=== PATIENT | female | born 1940 | race Caucasian/White ===

== ENCOUNTER 2020-03-15 12:55 | Outpatient (CLI) | payer MEDICARE, SELFPAY ==
[2020-03-15 13:51] LABS: Basophils Absolute Auto 0.1 K/mm3 (0.0-0.1); Basophils Percent Auto 0.8 % (0.2-1.2); Eosinophils Absolute Auto 0.3 K/mm3 (0-0.3); Eosinophils Percent Auto 4.1 % (0-4.4); Hematocrit 43.5 % (37.0-47.0); Hemoglobin 14.5 g/dL (12.0-15.0); Immature Granulocyte Absolute 0.03 K/mm3 (0.00-0.031); Immature Granulocyte Percent A 0.4 % (0-0.5); Lymphocytes Absolute Auto 1.71 K/mm3 (0.9-3.2); Lymphocytes Percent Auto 23.1 % (18.3-44.2); Mean Corpuscular HGB Conc 33.3 g/dl (32-36); Mean Corpuscular Hemoglobin 30.6 pg (26-34); Mean Corpuscular Volume 91.8 fl (80-100); Mean Platelet Volume 10.9 fl (7.4-10.4); Monocytes Absolute Auto 0.9 K/mm3 (0.1-0.6); Monocytes Percent Auto 11.9 % (2.6-8.5); Neutrophils Absolute Auto 4.4 K/mm3 (1.3-6.7); Neutrophils Percent Auto 59.7 % (45.5-73.1); Platelet Count Result 222 k/mm3 (150-375); Red Blood Count 4.74 M/mm3 (4.2-5.4); Red Cell Distribution Width 13.6 % (11.5-14.5); White Blood Count 7.4 K/mm3 (4.5-10.0)
[2020-03-15 13:59] LABS: Alanine Aminotransferase 24 U/L (4-35); Albumin Level 4.4 g/dL (3.5-5.1); Alkaline Phosphatase 75 U/L (38-126); Aspartate Amino Transferase 28 U/L (14-36); Bilirubin,Total 0.5 mg/dL (0.2-1.3); Blood Urea Nitrogen 22 mg/dL (7-17); Calcium 10.5 mg/dL (8.4-10.2); Carbon Dioxide 25 mmol/L (22-30); Chloride 106 mmol/L (98-107); Cholesterol 216 mg/dL (0-200); Estimated Glomerular Filt Rate 48; Glucose 125 mg/dL (65-105); HDL Direct 44 mg/dL; Potassium 4.4 mmol/L (3.4-5.0); Sodium 138 mmol/L (137-145); Triglycerides 266 mg/dL (<150)
[2020-03-15 14:10] LABS: LDL Cholesterol Direct 105 mg/dL
[2020-03-15 14:21] LABS: Hemoglobin A1C 6.8 % (<5.7)
[2020-03-15 15:29] LABS: Vitamin D 25 Hydroxy 81.9 ng/mL
== END 2020-03-15 12:56 | disposition home or self-care (01) ==
LOC: ANHLAB 12:58
PROVIDERS: PCP Internal Medicine; Visit Provider Clinical Nurse Specialist
DX: E78.5 Hyperlipidemia, unspecified (principal); E11.9 Type 2 diabetes mellitus without complications; I10 Essential (primary) hypertension; E55.9 Vitamin D deficiency, unspecified
CPT/HCPCS: 36415; 80053; 80061; 82306; 83036; 85025

== ENCOUNTER 2020-03-20 12:48 | Outpatient (CLI) | payer MEDICARE, SELFPAY ==
[2020-03-23 05:21] LABS: Ionized Calcium 5.3 mg/dL (4.8-5.6)
== END 2020-03-20 12:49 | disposition home or self-care (01) ==
PROVIDERS: PCP Internal Medicine; Visit Provider Clinical Nurse Specialist
DX: E83.52 Hypercalcemia (principal)
CPT/HCPCS: 36415; 82330

== ENCOUNTER 2020-05-17 12:45 | Outpatient (CLI) | payer MEDICARE, SELFPAY ==
[2020-05-17 13:42] LABS: Chloride 102 mmol/L (98-107)
[2020-05-17 13:47] LABS: Anion Gap 7 mmol/L (8-16); Blood Urea Nitrogen 15 mg/dL (7-17); Calcium 9.7 mg/dL (8.4-10.2); Carbon Dioxide 29 mmol/L (22-30); Estimated Glomerular Filt Rate 48; Glucose 107 mg/dL (65-105); Potassium 4.1 mmol/L (3.4-5.0); Sodium 138 mmol/L (137-145)
[2020-05-17 13:52] LABS: Hemoglobin A1C 6.6 % (<5.7)
== END 2020-05-17 12:46 | disposition home or self-care (01) ==
LOC: ANHLAB 12:51
PROVIDERS: PCP Internal Medicine; Visit Provider Clinical Nurse Specialist
DX: E11.9 Type 2 diabetes mellitus without complications (principal); R53.83 Other fatigue
CPT/HCPCS: 36415; 80048; 83036; 84443

== ENCOUNTER 2020-08-02 12:42 | Outpatient (CLI) | payer MEDICARE, SELFPAY ==
[2020-08-02 13:16] LABS: Basophils Absolute Auto 0.1 K/mm3 (0.0-0.1); Basophils Percent Auto 0.6 % (0.2-1.2); Eosinophils Absolute Auto 0.4 K/mm3 (0-0.3); Eosinophils Percent Auto 4.7 % (0-4.4); Hematocrit 41.1 % (37.0-47.0); Hemoglobin 14.7 g/dL (12.0-15.0); Immature Granulocyte Absolute 0.03 K/mm3 (0.00-0.031); Immature Granulocyte Percent A 0.4 % (0-0.5); Lymphocytes Percent Auto 24.7 % (18.3-44.2); Mean Corpuscular HGB Conc 35.8 g/dl (32-36); Mean Corpuscular Hemoglobin 34.7 pg (26-34); Mean Corpuscular Volume 96.9 fl (80-100); Mean Platelet Volume 10.6 fl (7.4-10.4); Monocytes Absolute Auto 0.7 K/mm3 (0.1-0.6); Monocytes Percent Auto 8.8 % (2.6-8.5); Neutrophils Absolute Auto 4.7 K/mm3 (1.3-6.7); Neutrophils Percent Auto 60.8 % (45.5-73.1); Platelet Count Result 202 k/mm3 (150-375); Red Blood Count 4.24 M/mm3 (4.2-5.4); Red Cell Distribution Width 15.8 % (11.5-14.5); White Blood Count 7.7 K/mm3 (4.5-10.0)
[2020-08-02 13:39] LABS: Alanine Aminotransferase 28 U/L (4-35); Albumin Level 4.8 g/dL (3.5-5.1); Alkaline Phosphatase 83 U/L (38-126); Anion Gap 8 mmol/L (8-16); Aspartate Amino Transferase 33 U/L (14-36); Bilirubin,Total 0.5 mg/dL (0.2-1.3); Blood Urea Nitrogen 16 mg/dL (7-17); Carbon Dioxide 34 mmol/L (22-30); Chloride 100 mmol/L (98-107); Cholesterol 145 mg/dL (0-200); Estimated Glomerular Filt Rate 48; Glucose 126 mg/dL (65-105); LDL Cholesterol Direct 56 mg/dL; Potassium 4.2 mmol/L (3.4-5.0); Sodium 142 mmol/L (137-145); Triglycerides 185 mg/dL (<150)
[2020-08-02 13:44] LABS: Hemoglobin A1C 6.4 % (<5.7)
[2020-08-02 13:59] LABS: HDL Direct 53 mg/dL
[2020-08-02 14:17] LABS: Vitamin D 25 Hydroxy 84.9 ng/mL
== END 2020-08-02 12:43 | disposition home or self-care (01) ==
PROVIDERS: PCP Internal Medicine; Visit Provider Clinical Nurse Specialist
DX: E55.9 Vitamin D deficiency, unspecified (principal); I10 Essential (primary) hypertension; E11.9 Type 2 diabetes mellitus without complications; E78.2 Mixed hyperlipidemia
CPT/HCPCS: 36415; 80053; 80061; 82306; 83036; 85025

== ENCOUNTER 2020-11-01 13:56 | Outpatient (CLI) | payer MEDICARE, SELFPAY ==
[2020-11-01 15:24] LABS: Hemoglobin A1C 6.4 % (<5.7)
== END 2020-11-01 13:57 | disposition home or self-care (01) ==
PROVIDERS: PCP Internal Medicine; Visit Provider Clinical Nurse Specialist
DX: E11.59 Type 2 diabetes mellitus with other circulatory complications (principal)
CPT/HCPCS: 36415; 83036

== ENCOUNTER 2021-04-04 12:28 | Outpatient (CLI) | payer MEDICARE, SELFPAY ==
[2021-04-04 13:14] LABS: Anion Gap 8 mmol/L (8-16); Blood Urea Nitrogen 15 mg/dL (7-17); Calcium 9.9 mg/dL (8.4-10.2); Carbon Dioxide 27 mmol/L (22-30); Chloride 105 mmol/L (98-107); Estimated Glomerular Filt Rate 47; Glucose 96 mg/dL (65-105); Potassium 4.3 mmol/L (3.4-5.0); Sodium 140 mmol/L (137-145)
[2021-04-04 13:21] LABS: Hemoglobin A1C 6.7 % (<5.7)
[2021-04-04 14:48] LABS: Creatinine Urine 32.2 mg/dL
== END 2021-04-04 12:29 | disposition home or self-care (01) ==
LOC: ANHLAB 12:31
PROVIDERS: PCP Internal Medicine; Visit Provider Clinical Nurse Specialist
DX: E11.59 Type 2 diabetes mellitus with other circulatory complications (principal)
CPT/HCPCS: 36415; 80048; 82043; 83036

== ENCOUNTER 2021-07-02 13:07 | Outpatient (CLI) | payer MEDICARE, SELFPAY ==
[2021-07-02 14:14] LABS: Hemoglobin A1C 6.5 % (<5.7)
== END 2021-07-02 13:08 | disposition home or self-care (01) ==
LOC: ANHLAB 13:10
PROVIDERS: PCP Internal Medicine; Visit Provider Clinical Nurse Specialist
DX: E11.59 Type 2 diabetes mellitus with other circulatory complications (principal)
CPT/HCPCS: 36415; 82607; 83036

== ENCOUNTER 2021-09-10 12:30 | Outpatient (RCR) | payer MEDICARE, SELFPAY ==
--- NOTE | 2021-07-30 15:28 | PTOPEVAL ---
Thank you for referring Maribell Dobbs to [facility].? The patient is scheduled to be seen for therapy? 2 x/week for 6 weeks. Please review, sign, date and return this plan of care ODALYS. I agree with and certify that the following plan of care is medically necessary. 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 She is wearing a prosthesis with 3 sock ply. She furniture walks in the house or uses her wc and a ww in the community. Subjective Information She has had 2-3 falls at home Query Text:As Reported By Patient/ in the past 6 months. Per Family daughter she is having trouble with right LE with driving due to feeling weak. She performs the cooking, cleaning, her ADL's and grocery shopping. She uses an electrical cart with shopping. She is indep with donning/ doffing prosthesis from seated position. Previous Treatments Previous Treatments For This Problem 2016 Pain Assessment Self Report Pain Assessment Lower Back Reported Pain Level 3 Lower Extremity Range of Motion General Lower Extremity Range of Motion Gross Lower Extremity Range of Motion left hip passive ext: -10 dg, Comments knee ext: -10 dg Lower Extremity Muscle Strength Testing Hip Strength Bilateral Hip Flexion Strength 3+ Fair + Hip Extension Strength 3- Fair - Hip Abduction Strength 2+ Poor + Knee Strength Left Knee Flexion Strength 3+ Fair + Knee Extension Strength 3+ Fair + Right Knee Flexion Strength 3+ Fair + Knee Extension Strength 4 Good Ankle Strength Right Ankle Dorsiflexion Strength 4 Good Ankle Plantarflexion Strength 3+ Fair + Ankle Eversion Strength 3+ Fair + Ankle Inversion Strength 4 Good Upper Extremity Muscle Strength Testing General Upper Extremity Strength Gross Upper Extremity Strength Comments andrea shoulder motions 3/5 andrea elbow flex/ext: 4/5 Transfer Assessment Chair Transfer Assessment Chair Transfer Assistive Devices None Ambulation Assistive Devices Walker, Wheeled Chair Transfer Destination Ambulatory Ability to Transfer In/Out of Chair Independent Bed Mobility Assessment Bed Mobility Bed Mobility Assistive Devices None Orthotic/Prosthetic Devices Left Lower Extremity Prosthesis
--- NOTE | 2021-09-10 13:45 | PTOPEVAL ---
Physical therapy discharge summary Thank you for referring Maribell Dobbs to [facility].? Maribell has attended 9 therapy visits to address her muscle weakness and limitations with functional mobility. See summary below for detail on function and progress. She has reached maximal potential with skilled therapy services at this time. Will discharge therapy services at this time. Please review, sign, date and return this discharge summary ODALYS. I agree with and certify that the following plan of care is medically necessary. 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 She is wearing a prosthesis with 3 sock ply. She furniture walks in the house or uses her wc and a ww in the community. Subjective Information She has had 1 fall since Query Text:As Reported By Patient/ starting therapy. She was Family descending a ramp which was icey. She has a new prosthesis since 09/03/21. She is wearing 5 ply socks. She is indep with donning/ doffing prosthesis from seated position. She has only performed her HEP 2-3x since starting therapy. Pain Assessment Lower Back Reported Pain Level 7 Pain Score Pain Score 7: Self Report Lower Extremity Muscle Strength Testing Hip Strength Bilateral Hip Flexion Strength 4 Good Hip Extension Strength 3- Fair - Hip Abduction Strength 2 Poor Hip Adduction Strength 2+ Poor + Knee Strength Left Knee Flexion Strength 4- Good - Knee Extension Strength 4 Good Right Knee Flexion Strength 4- Good - Knee Extension Strength 4+ Good + Ankle Strength Right Ankle Dorsiflexion Strength 4+ Good + Ankle Plantarflexion Strength 3+ Fair + Ankle Eversion Strength 4- Good - Ankle Inversion Strength 4 Good Transfer Assessment Chair Transfer Assessment Chair Transfer Assistive Devices None Ambulation Assistive Devices Walker, Wheeled Orthotic/Prosthetic Devices Left Lower Extremity Prosthesis Chair Transfer Destination Ambulatory Ability to Transfer In/Out of Chair Independent Chair Transfer Comments able to transfer from chairs with UE support. Multiple attempts to achieve full upright position Bed Mobi
== END 2021-09-11 09:33 | disposition home or self-care (01) ==
LOC: ANHPT 12:30
PROVIDERS: PCP Internal Medicine; Visit Provider Nurse Practitioner
DX: R53.1 Weakness (principal)
CPT/HCPCS: 97110; 97116; 97162; 97530

== ENCOUNTER 2021-10-08 12:30 | Outpatient (CLI) | payer MEDICARE, SELFPAY ==
[2021-10-08 13:25] LABS: Anion Gap 10 mmol/L (8-16); Blood Urea Nitrogen 16 mg/dL (7-17); Calcium 9.7 mg/dL (8.4-10.2); Carbon Dioxide 30 mmol/L (22-30); Chloride 99 mmol/L (98-107); Estimated Glomerular Filt Rate 47; Glucose 125 mg/dL (65-110); Potassium 4.4 mmol/L (3.4-5.0); Sodium 139 mmol/L (137-145)
[2021-10-08 13:48] LABS: Creatinine Urine 38.5 mg/dL
[2021-10-08 13:54] LABS: MALB Creatinine Ratio 107.5 mg/g (0-30); Microalbumin Urine Random 41.4 mg/L (0-16.7)
[2021-10-08 15:23] LABS: Vitamin D 25 Hydroxy 66.7 ng/mL
[2021-10-08 17:35] LABS: Hemoglobin A1C 6.3 % (<5.7)
== END 2021-10-08 12:31 | disposition home or self-care (01) ==
PROVIDERS: PCP Internal Medicine; Visit Provider Nurse Practitioner
DX: E11.9 Type 2 diabetes mellitus without complications (principal); E55.9 Vitamin D deficiency, unspecified
CPT/HCPCS: 36415; 80048; 82043; 82306; 83036

== ENCOUNTER 2022-02-11 12:27 | Outpatient (CLI) | payer MEDICARE, MEDICAID, SELFPAY ==
[2022-02-11 13:05] LABS: Basophils Absolute Auto 0.1 K/mm3 (0.0-0.1); Basophils Percent Auto 0.5 % (0.2-1.2); Eosinophils Absolute Auto 0.3 K/mm3 (0-0.3); Eosinophils Percent Auto 3.1 % (0-4.4); Hematocrit 38.3 % (37.0-47.0); Hemoglobin 11.6 g/dL (12.0-15.0); Immature Granulocyte Absolute 0.05 K/mm3 (0.00-0.031); Immature Granulocyte Percent A 0.5 % (0-0.5); Lymphocytes Absolute Auto 1.71 K/mm3 (0.9-3.2); Lymphocytes Percent Auto 18.6 % (18.3-44.2); Mean Corpuscular HGB Conc 30.3 g/dl (32-36); Mean Corpuscular Hemoglobin 27.2 pg (26-34); Mean Corpuscular Volume 89.9 fl (80-100); Monocytes Percent Auto 10.3 % (2.6-8.5); Neutrophils Absolute Auto 6.2 K/mm3 (1.3-6.7); Platelet Count Result 335 k/mm3 (150-375); Red Blood Count 4.26 M/mm3 (4.2-5.4); Red Cell Distribution Width 14.3 % (11.5-14.5); White Blood Count 9.2 K/mm3 (4.5-10.0)
[2022-02-11 13:14] LABS: Hemoglobin A1C 6.5 % (<5.7)
== END 2022-02-11 12:28 | disposition home or self-care (01) ==
PROVIDERS: PCP Internal Medicine; Visit Provider Nurse Practitioner
DX: E11.59 Type 2 diabetes mellitus with other circulatory complications (principal)
CPT/HCPCS: 36415; 83036; 85025

== ENCOUNTER 2022-03-30 12:58 | Inpatient (IN) | payer MEDICARE, MEDICAID, SELFPAY ==
[2022-03-30] VITALS (46 sets, daily range): BP systolic 115–155; BP diastolic 39–114; PULSE 52–88; RESP 13–28; TEMP 36.2–36.7; O2SAT 95–99; BMI 27.8
--- NOTE | ~2022-03-30 | CT_ITS ---
EXAMINATION:CT diagnostic chest w con DATE: 04/02/2022 12:53 INDICATION: Lung mass. TECHNIQUE: Computed tomography (CT) of the chest was performed with 75 mL Omnipaque 300 intravenous c ontrast. Automated exposure control and iterative reconstruction technique were employed. The dose-le ngth product (DLP) was 256.59 mGy-cm. COMPARISON: CT abdomen and pelvis 04/01/2022 FINDINGS: There is an 8.9 x 8.8 cm mass with central necrosis involving perihilar left upper lobe and left lower lobe. There are groundglass and airspace opacities in the more peripheral left lower lobe . There is mild atelectasis in right lower lobe. There are small left and trace right pleural effusio ns. The heart size is normal. There are coronary artery calcifications. No pericardial effusion. Ther e is a small sliding hiatal hernia. There is left hilar lymphadenopathy with a media sales representative node me asuring 2.2 x 1.8 cm. There are changes of cholecystectomy. There is a 4.3 cm mass in right adrenal g land. There is a 3.4 cm mass in left adrenal gland. There is moderate thoracic spondylosis. There are multiple chronic vertebral body fractures. IMPRESSION: 1. 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 2. Left hilar lymphadenopathy and bilateral adrenal masses, consistent with metastatic disease. 3. Small left pleural effusion. Diagnostic thoracentesis is recommended. 4. Groundglass and airspace opacities in left lung lower lobe, consistent with postobstructive pneumo cody. Reviewed, dictated and finalized at location A. IMPRESSION: 1. 8.9 cm necrotic mass in left lung, consistent with primary bronchogenic carc inoma. 2. Left hilar lymphadenopathy and bilateral adrenal masses, consistent with met astatic disease. 3. Small left pleural effusion. Diagnostic thoracentesis is recommended. 4. Groundglass and airspace opacities in left lung lower lobe, consistent with postobstructive pneumonia.
--- NOTE | ~2022-03-30 | XR_ITS ---
EXAMINATION: XR chest 2V DATE: 03/30/2022 14:03 INDICATION: Left shoulder pain TECHNIQUE: frontal and lateral views of the chest were obtained. COMPARISON: Chest radiograph dated 05/06/2016 FINDINGS: Focal consolidation in the posterior segment of the left upper lobe. Mild opacities at the posterior left lung base. Blunting at the bilateral posterior sulci consistent with tiny bilateral pleural effu sions.. Right lung is otherwise clear. No pneumothorax The cardiomediastinal silhouette is within nor mal limits for AP technique. Thoracic kyphosis with moderate spondylosis and a couple likely compress ion fractures at the lower thoracic spine. IMPRESSION: 1. Large region of consolidation in the posterior segment of the left upper lobe concerning for pneum onia, malignancy or combination thereof. Recommend further evaluation with contrast-enhanced CT, eith er currently or in short interval following resolution of symptoms. 2. Tiny left pleural effusion with mild left basilar atelectasis, pneumonia or mild pulmonary edema. Reviewed, dictated and finalized at location A. IMPRESSION: 1. Large region of consolidation in the posterior segment of the left upper lob e concerning for pneumonia, malignancy or combination thereof. Recommend furthe r evaluation with contrast-enhanced CT, either currently or in short interval f ollowing resolution of symptoms. 2. Tiny left pleural effusion with mild left basilar atelectasis, pneumonia or mild pulmonary edema.
--- NOTE | ~2022-03-30 | US_ITS ---
EXAMINATION: US venous doppler LE RT DATE: 03/31/2022 11:00 INDICATION: Right lower limb edema. TECHNIQUE: Grayscale ultrasound images without and with compression and Doppler ultrasound images of the right lower extremity veins were obtained. COMPARISON: Ultrasound 03/30/2010 FINDINGS: The visualized portions of right common femoral vein, profunda (deep) femoral vein, femoral vein, pop liteal vein, peroneal veins, posterior tibial veins, and greater saphenous vein outflow are patent. IMPRESSION: 1. No deep venous thrombosis. Reviewed, dictated and finalized at location A.
--- NOTE | ~2022-03-30 | CT_ITS ---
EXAMINATION: CT abdomen pelvis wo con DATE: 04/01/2022 18:13 INDICATION: Acute anemia. TECHNIQUE: Computed tomography (CT) of the abdomen and pelvis was performed without intravenous contr ast. The dose-length product was 682.83 mGy-cm. Automated exposure control and iterative reconstructi on technique were employed. COMPARISON: None FINDINGS: LEFT lower lobe airspace disease, consistent with pneumonia. Small pericardial effusion. Sm all left pleural effusion. Trace right pleural effusion. Cardiomegaly. There are bilateral adrenal masses, largest in the right adrenal gland measuring 4.3 x 4.2 cm. Status post cholecystectomy. The spleen, pancreas, and left kidney are unremarkable. There is an ill-define d partially calcified mass in the right kidney. Cannot exclude renal cell carcinoma. Recommend correl ation with MRI with contrast colonic diverticulosis without evidence for diverticulitis. Nonobstructi ve bowel pattern. There is a [place] ventral hernia containing fat and nonobstructed bowel. There i s extensive atherosclerosis. No aneurysm. There is levoscoliosis. There are severe lumbar spondylosis . There are wedge compression fractures of T12 and L1, likely chronic.. IMPRESSION: 1. Ill-defined right renal mass which is partially calcified. Cannot exclude renal cell carcinoma. Re commend correlation with contrast-enhanced MRI. 2: Bilateral adrenal masses which may represent benign adenomas, although metastatic disease is not excluded. This would also be better evaluated with contrast-enhanced MR. 3: Left lower lobe airspace disease, compatible with pneumonia. 4: Small pericardial effusion. 5: Small pleural effusions, left greater than right. Reviewed, dictated and finalized at location A. IMPRESSION: 1. Ill-defined right renal mass which is partially calcified. Cannot exclude re nal cell carcinoma. Recommend correlation with contrast-enhanced MRI. 2: Bilateral adrenal masses which may represent benign adenomas, although meta static disease is not excluded. This would also be better evaluated with contra st-enhanced MR. 3: Left lower lobe airspace disease, compatible with pneumonia. 4: Small pericardial effusion. 5: Small pleural effusions, left greater than right.
--- NOTE | ~2022-03-30 | US_ITS ---
. EXAMINATION: US renal BI DATE: 03/31/2022 11:01 INDICATION: Acute on chronic renal failure. TECHNIQUE: Multiple ultrasound grayscale images of the kidneys were obtained. COMPARISON: None. FINDINGS: The right kidney measures 10.7 x 5.0 x 5.3 cm. The left kidney measures 10.1 x 4.3 x 5.2 cm. The kidn eys demonstrate normal parenchymal echogenicity. There is no hydronephrosis. The bladder is normal. IMPRESSION: 1. Normal kidneys. No hydronephrosis. Reviewed, dictated and finalized at location A.
--- NOTE | ~2022-03-30 | XR_ITS ---
EXAMINATION: [id number]_[id number]_CR DATE: 04/03/2022 14:43 INDICATION: Left pleural effusion status post thoracentesis. TECHNIQUE: Frontal and lateral views of the chest were obtained. COMPARISON: Chest 2 views 03/30/2022, chest CT 04/02/2022 FINDINGS: There are airspace opacities in left lung, worst in left upper lobe and superior segment le ft lower lobe. There are airspace opacities at left lung base. There are small pleural effusions. No pneumothorax. Cardiomegaly is noted. There are chronic compression fractures of T12 and L1. IMPRESSION: 1. Stable airspace opacities in left upper lobe and superior segment left lower lobe, consistent with pneumonia versus malignancy. 2. Worsened airspace opacities at left lung base, consistent with atelectasis versus pneumonia. 3. Small pleural effusions. 4. Cardiomegaly. Reviewed, dictated and finalized at location A. IMPRESSION: 1. Stable airspace opacities in left upper lobe and superior segment left lower lobe, consistent with pneumonia versus malignancy. 2. Worsened airspace opacities at left lung base, consistent with atelectasis v ersus pneumonia. 3. Small pleural effusions. 4. Cardiomegaly.
--- NOTE | ~2022-03-30 | US_ITS ---
EXAMINATION: US thoracentesis DATE: 04/03/2022 14:57 INDICATION: pleural effusion TECHNIQUE: The procedure and its risks, benefits, and alternatives were discussed with the patient. P otential risks discussed included bleeding, infection, and pneumothorax. The patient understood the r isks and agreed to proceed. The skin was prepped and draped in sterile fashion. 1% lidocaine was used for local anesthesia. Under ultrasound guidance, a 5 Fr catheter with trochar was advanced into the left pleural effusion. Fluid was aspirated. The catheter was removed, and a dressing was applied. The re were no immediate complications. FINDINGS: Ultrasound images demonstrate a left pleural effusion and the catheter within the fluid. IMPRESSION: 1. Successful ultrasound-guided thoracentesis yielding 10 mL of yellow fluid. Reviewed, dictated and finalized at location A.
--- NOTE | 2022-03-30 13:31 | ECG_ITS ---
Measurements Intervals [place] Rate: 65 P: 24 WA: 176 QRS: 17 QRSD: 86 T: 41 QT: 410 QTc: 427 Interpretive Statements SINUS RHYTHM BASELINE ARTIFACT- V5 BORDERLINE ECG Electronically Signed On 03-30-2022 21:22:21 CDT by Ritesh Jurado D.O.
[2022-03-30 13:42] LABS: Basophils Absolute Auto 0.1 K/mm3 (0.0-0.1); Basophils Percent Auto 0.3 % (0.2-1.2); Eosinophils Absolute Auto 0.4 K/mm3 (0-0.3); Eosinophils Percent Auto 2.7 % (0-4.4); Hemoglobin 9.5 g/dL (12.0-15.0); Immature Granulocyte Absolute 0.06 K/mm3 (0.00-0.031); Immature Granulocyte Percent A 0.4 % (0-0.5); Lymphocytes Absolute Auto 1.25 K/mm3 (0.9-3.2); Lymphocytes Percent Auto 8.6 % (18.3-44.2); Mean Corpuscular HGB Conc 29.7 g/dl (32-36); Mean Corpuscular Hemoglobin 24.9 pg (26-34); Monocytes Absolute Auto 1.3 K/mm3 (0.1-0.6); Monocytes Percent Auto 8.9 % (2.6-8.5); Neutrophils Absolute Auto 11.5 K/mm3 (1.3-6.7); Neutrophils Percent Auto 79.1 % (45.5-73.1); Platelet Count Result 421 k/mm3 (150-375); Red Blood Count 3.81 M/mm3 (4.2-5.4); Red Cell Distribution Width 14.9 % (11.5-14.5); White Blood Count 14.6 K/mm3 (4.5-10.0)
[2022-03-30 13:52] LABS: Alanine Aminotransferase 14 U/L (6-35); Albumin Level 3.6 g/dL (3.5-5.1); Alkaline Phosphatase 89 U/L (38-126); Anion Gap 7 mmol/L (8-16); Aspartate Amino Transferase 27 U/L (14-36); Bilirubin,Total < 0.1 mg/dL (0.2-1.3); Blood Urea Nitrogen 32 mg/dL (7-17); Calcium 8.8 mg/dL (8.4-10.2); Carbon Dioxide 29 mmol/L (22-30); Chloride 102 mmol/L (98-107); Estimated CRCL calculation 16 ml/min; Estimated Glomerular Filt Rate 21; Glucose 131 mg/dL (65-110); Lipase 309 U/L (23-300); Potassium 4.2 mmol/L (3.4-5.0); Sodium 138 mmol/L (137-145)
[2022-03-30 13:54] LABS: INR 1.2; Prothrombin Time 14.6 Seconds (11.1-14.7)
[2022-03-30 13:55] LABS: Partial Thromboplastin Time 34.4 SECONDS (22.3-36.8)
[2022-03-30 14:30] LABS: Troponin I 0.087 ng/mL (0.000-0.034)
[2022-03-30] MEDS: ASPIRIN 81 MG CHEWABLE TABLET 324 MG PO (15:07)
[2022-03-30] MEDS: METOPROLOL TARTRATE 50 MG TAB 25 MG PO (15:07)
[2022-03-30] MEDS: NITROGLYCERIN OINTMENT 1 INCH DOSE TRANSDERM (15:08)
[2022-03-30] MEDS: SODIUM CHLORIDE 0.9% IV 1,000 ML 999 ML IV CONT (15:08)
--- NOTE | 2022-03-30 15:10 | ED.GENADULT ---
HPI - General Adult General Chief complaint: Unspecified Stated complaint: bodyaches, hot flashes Time Seen by Provider: 03/30/22 14:30 History of Present Illness HPI narrative: Patient is 81 years old white female presents to the ED with left upper chest pain. Patient got up at 1 AM to go to the bathroom and noticed that she have some soreness around her left breast radiating to left shoulder blade. And also was feeling warm and diaphoretic. Patient was able to go back and forth to sleep, and her symptoms resolved completely at 5 AM currently patient is asymptomatic. She denies any fever, chills, nausea, vomiting, shortness of breath or having similar symptoms in the past. History of diabetes and hypothyroidism. Patient does not take any blood thinner at home. She denies any history of heart attack or stroke or hypertension. Patient also denies any smoking or drinking. History of left below-knee amputation Related Data Home Medications Medication Instructions Recorded Confirmed multivitamin 1 tablet PO DAILY 08/02/19 03/30/22 omega-3 fatty acids 1,000 mg 1,000 mg PO DAILY 08/02/19 03/30/22 capsule (Fish Oil Concentrate) vitamin E (dl, acetate) 180 mg 400 unit PO DAILY 08/02/19 03/30/22 (400 unit) capsule cholecalciferol (vitamin D3) 125 5,000 unit PO .every other day 07/04/21 03/30/22 mcg (5,000 unit) capsule biotin 1 mg capsule 1 mg PO DAILY 02/13/22 03/30/22 Allergies Allergy/AdvReac Type Severity Reaction Status Date / Time erythromycin base Allergy Unknown Hives Verified 03/30/22 13:07 Penicillins Allergy Unknown Hives Verified 03/30/22 13:07 Review of Systems Review of Systems: CONSTITUTIONAL: Denies fever, chills, or sweats. EYES: Denies visual changes, redness, or discharge. ENT: Denies rhinorrhea, congestion, sore throat, or otalgia. CARDIOVASCULAR: Denies chest pain, palpitations, or edema. RESPIRATORY: Denies cough or dyspnea. GASTROINTESTINAL: Denies abdominal pain, nausea, vomiting, or diarrhea. GENITOURINARY: Denies dysuria or hematuria. SKIN: Denies rash or itching. MUSCULOSKELETAL: Denies back pain, joint pain, or myalgia. NEUROLOGIC: Denies headache, numbness, or weakness. PSYCHIATRIC: Denies anxiety or depression. [facility] Past Medical History Medical History Below-knee amputation of left lower extremity CKD (chronic kidney disease) Essential hypertension GERD (gastroesophageal reflux disease) Hyperlipidemia Paroxysmal A-fib Type 2 diabetes mellitus with other circulatory complications Surgical History Surgical History History of appendectomy Hx of cholecystectomy Status post below-knee amputation of left lower extremity Family History Family History Father Family history of Parkinson's disease Patient's father is , Onset Age: 73 Mother Patient's mother is , Onset Age: 69 Uterine cancer Social History Social History Social History: Caffeine-tea,soda Smoking status: Never smoker Alcohol intake: never Exam Narrative: General appearance: Well-developed, well-nourished Skin: Normal color Head: Normocephalic, nontraumatic Eyes: Clear conjunctiva ENT: Oropharynx normal, ears normal, nose normal Neck: Supple, nontender Chest and respiratory: Airway patent, no respiratory distress, no accessory muscle use Heart: Regular rate/rhythm Abdomen: Soft, nontender, no organomegaly, quiet bowel sounds Vascular: Normal peripheral pulses, normal capillary refill. Musculoskeletal: Normal range of motion, nontender back Neurologic: Alert and oriented ?3, FILM OR TAPE LIBRARIAN is normal as tested, no gross motor deficit
--- NOTE | 2022-03-30 15:37 | PC.NURSE ---
NITRO paste removed per order of YADI ashley.
--- NOTE | 2022-03-30 16:15 | PM.IMHP ---
H&P: HPI History of Present Illness Date/Time: 03/30/22 16:15 Chief Complaint: Left sided chest pain. Narrative: This is a pleasant 81-year-old female with insulin dependent diabetes, hypertension, hyperlipidemia, paroxysmal atrial fibrillation, chronic kidney disease, and hypothyroidism who presented to the emergency department from home for evaluation of left sided chest pain. For about a week she has had aching discomfort and occasional muscle spasms throughout the lower back. She was seen at urgent care several days ago at which time she was diagnosed with a urinary tract infection for which she was prescribed Bactrim though she did not really have any urinary symptoms. Last evening she started having pain on the left side of her chest and the left side of her ribs that she has a difficult time describing though she states that is aggravating and at times stabbing in nature. She did not sleep well due to the pain in addition to hot sweats however when she woke up this morning she was may be a bit better. As the day has gone on the pain has returned and she came in for evaluation. Her EKG was relatively unremarkable though her initial troponin was a bit elevated at 0.084. Chest x-ray showed a large region of consolidation in the posterior segment of the left upper lobe concerning for pneumonia and she is being admitted in this setting. With further questioning she does endorse a dry cough and hot sweats as detailed above. She denies headache, sinus congestion, sore throat, chest pain, shortness of breath, nausea, vomiting, and diarrhea. She has not had exertional chest pain or palpitations. She has mild edema in her right leg but that is chronic and unchanged. She has not had any sick contacts and her SARS-CoV-2 by PCR was negative. Review of Systems Review of Systems: Twelve systems were reviewed. She has been taking ibuprofen and occasionally hydrocodone for the low back discomfort that she started to have last week. Those seemed to help somewhat with the left-sided pleuritic pain as well. Glucose has been fairly well controlled. No blurry vision, polydipsia, or polyuria. Except as documented, all other systems were reviewed and are negative. [facility] Past Medical History Medical History (Updated 03/30/22 @ 15:47 by Samira May PA-C) Chronic kidney disease, stage 3 Baseline creatinine is 1.10. Essential hypertension Gastroesophageal reflux disease Hyperlipidemia Insulin dependent diabetes mellitus Osteomyelitis Paroxysmal atrial fibrillation Vitamin D deficiency Surgical History Surgical History (Updated 03/30/22 @ 15:43 by Samira May PA-C) History of amputation of toe History of appendectomy History of bilateral cataract extraction History of cholecystectomy History of left below knee amputation History of tonsillectomy Family History Family History Father Family history of Parkinson's disease Patient's father is , Onset Age: 73 Mother Patient's mother is , Onset Age: 69 Uterine cancer Social History Social History (Updated 03/30/22 @ 23:30 by Samira May PA-C) Social History: Surrogate medical decision maker: Gypsy Finley, daughter. Code status: Full code. Smoking status: Former smoker Alcohol intake: never Substance use: never Living arrangements: with family Occupation/Education: retired Spiritual care concerns: No Meds Home Medications and Allergies Home Medications Medication Instructions Recorded Confirmed Type multivitamin 1 tablet PO DAILY 08/02/19 03/30/22 History omega-3 fatty acids 1,000 mg 1,000 mg PO DAILY 08/02/19 03/30/22 History capsule (Fish Oil Concentrate) vitamin E (dl, acetate) 180 mg 400 unit PO DAILY 08/02/19 03/30/22 History (400 unit) capsule blood-glucose meter ([employer] #1 ea 11/23/20 03/30/22 Rx Ultra2 Meter) cholecalciferol (v
[2022-03-30 16:17] LABS: Lactic Acid Reflex 1.5 mmol/L (0.7-2.0)
[2022-03-30 16:28] LABS: CRP 3.7 mg/dL (<1.0)
[2022-03-30 16:40] LABS: SARS-CoV-2 RNA PCR Negative
[2022-03-30 16:42] LABS: Troponin I 0.082 ng/mL (0.000-0.034)
--- NOTE | 2022-03-30 18:50 | ADMGEN ---
This patient, Maribell Dobbs, was admitted to IMU Room 201-01 at 1826. Patient/family oriented to hospital policies and general routines including ID bracelet, bed and alarms, visiting hours, pain management, procedures, bathroom and other care routines, personal items, smoking policy, room service/diet, and visiting hours. Information on how to activate the Rapid Response Team has been discussed. Patient/Family are encouraged to report perceived risks to care and to ask questions if they do not understand what they are told or what they should do.
[2022-03-30 19:40] LABS: Troponin I 0.084 ng/mL (0.000-0.034)
[2022-03-30] MEDS: SODIUM CHLORIDE 0.9% IV 1,000 ML 125 ML IV CONT (19:55)
[2022-03-30 20:16] LABS: Glucose Point of Care 167 mg/dl (65-105)
[2022-03-31] VITALS (13 sets, daily range): BP systolic 124–149; BP diastolic 44–71; PULSE 63–75; RESP 14–20; TEMP 36.1–36.6; O2SAT 94–99
[2022-03-31 00:45] LABS: Creatine Kinase 59 U/L (30-135)
[2022-03-31 00:47] LABS: Hemoglobin A1C 6.9 % (<5.7)
[2022-03-31 00:50] LABS: Appearance Urine Clear (Clear); Bilirubin Urine Negative (Negative); Blood Urine Negative (Negative); Color Urine Yellow (Yellow); Glucose Urine UA Negative (Negative); Ketones Urine Negative (Negative); Leukocyte Esterase Ur Negative LEU/UL (Negative); Nitrate Urine Negative (Negative); Protein Urine Negative (Negative); Urobilinogen Urine 0.2 mg/dL (<2.0); pH Urine 5.5 (5.0-9.0)
[2022-03-31 00:51] LABS: NT Pro B Type Natriuretic Pept 828 pg/mL (5-100)
[2022-03-31 01:06] LABS: Creatinine Urine 72.2 mg/dL
[2022-03-31 01:08] LABS: Iron 30 ug/dL (37-170)
[2022-03-31 01:09] LABS: Bacteria Urine Trace /hpf; Mucus Urine Rare /lpf; RBC Urine 0-2 /hpf (0-2); Squamous Epithelial Cell Urine Occasional /hpf (Few)
[2022-03-31] MEDS: BIOTIN 1 EACH XX (01:10)
[2022-03-31 01:17] LABS: Percent Iron Saturation 14 % (20-50)
[2022-03-31 01:18] LABS: Add Urine Microscopic? YES
[2022-03-31 01:22] LABS: Procalcitonin 0.2 ng/mL
[2022-03-31 01:43] LABS: Eosinophil Urine None Seen % (None Seen)
[2022-03-31 02:19] LABS: Folic Acid 18.6 ng/mL (2.76->20)
[2022-03-31 05:21] LABS: Basophils Absolute Auto 0.1 K/mm3 (0.0-0.1); Basophils Percent Auto 0.4 % (0.2-1.2); Eosinophils Absolute Auto 0.4 K/mm3 (0-0.3); Eosinophils Percent Auto 2.7 % (0-4.4); Hematocrit 28.4 % (37.0-47.0); Hemoglobin 8.7 g/dL (12.0-15.0); Immature Granulocyte Absolute 0.06 K/mm3 (0.00-0.031); Immature Granulocyte Percent A 0.4 % (0-0.5); Lymphocytes Percent Auto 7.4 % (18.3-44.2); Mean Corpuscular HGB Conc 30.6 g/dl (32-36); Mean Corpuscular Hemoglobin 26.8 pg (26-34); Mean Corpuscular Volume 87.4 fl (80-100); Mean Platelet Volume 9.8 fl (7.4-10.4); Monocytes Absolute Auto 1.4 K/mm3 (0.1-0.6); Monocytes Percent Auto 10.5 % (2.6-8.5); Neutrophils Absolute Auto 10.7 K/mm3 (1.3-6.7); Neutrophils Percent Auto 78.6 % (45.5-73.1); Platelet Count Result 355 k/mm3 (150-375); Red Blood Count 3.25 M/mm3 (4.2-5.4); Red Cell Distribution Width 15.4 % (11.5-14.5); White Blood Count 13.6 K/mm3 (4.5-10.0)
[2022-03-31 05:37] LABS: Anion Gap 5 mmol/L (8-16); Blood Urea Nitrogen 29 mg/dL (7-17); Carbon Dioxide 26 mmol/L (22-30); Chloride 104 mmol/L (98-107); Estimated CRCL calculation 20 ml/min; Estimated Glomerular Filt Rate 27; Glucose 133 mg/dL (65-110); Magnesium 1.6 mg/dL (1.6-2.3); Potassium 4.1 mmol/L (3.4-5.0); Sodium 135 mmol/L (137-145)
--- NOTE | 2022-03-31 06:00 | ECG_ITS ---
Measurements Intervals [place] Rate: 73 P: 46 UT: 208 QRS: 43 QRSD: 89 T: 31 QT: 403 QTc: 444 Interpretive Statements SINUS RHYTHM WITH FIRST DEGREE AV BLOCK LOW QRS VOLTAGE IN PRECORDIAL LEADS BORDERLINE ECG Electronically Signed On 03-31-2022 8:20:53 CDT by Ritesh Jurado D.O.
[2022-03-31 07:56] LABS: Glucose Point of Care 98 mg/dl (65-105)
[2022-03-31] MEDS: ATORVASTATIN 20 MG TABLET PO (08:10)
[2022-03-31] MEDS: OMEGA 3 POLYUNSAT FATTY ACIDS 1 GM CAP PO (08:10)
[2022-03-31] MEDS: ENOXAPARIN 30 MG/0.3 ML SYRINGE SUB-Q (08:10)
[2022-03-31] MEDS: MULTIVITAMINS THERAPEUTIC TAB (*BKC) 1 TABLET PO (08:10)
[2022-03-31] MEDS: PANTOPRAZOLE 40 MG TABLET PO (08:10)
[2022-03-31] MEDS: CHOLECALCIFEROL 1,000 UNITS TABLET 5000 UNITS PO (08:10)
[2022-03-31] MEDS: VITAMIN E 400 UNIT CAPSULE PO (08:10)
--- NOTE | 2022-03-31 09:11 | PM.CNCAR ---
Assessment and Plan Assessment and plan (1) Elevated troponin: Code(s): R77.8 - Other specified abnormalities of plasma proteins Status: Acute Assessment and Plan: Mildly elevated flat troponin consistent with type 2 infarction not consistent acute coronary syndrome and/or plaque rupture. This is seen in the setting of acute on chronic anemia, acute on chronic kidney injury, and pneumonia. Patient has atypical symptoms although multiple risk factors for underlying CAD. EKG is without acute ischemic changes. Continue statin therapy. He had review prior cardiovascular records. Outpatient ischemic evaluation may be considered once patient is more full recovery given risk factors but need not be pursued at this time in house unless new concerns or changes. 2D echocardiogram to assess LV systolic function, wall motion abnormalities, valve pathology pulmonary pressures. Recommendation to follow after review. If significant wall motion abnormalities and/or LV dysfunction is identified ischemic evaluation will be discussed in more detail. (2) Acute on chronic kidney failure: Code(s): N17.9 - Acute kidney failure, unspecified; N18.9 - Chronic kidney disease, unspecified Status: Acute Assessment and Plan: Per primary service. Avoid nephrotoxic agents. Monitor closely. (3) Community acquired pneumonia: Code(s): J18.9 - Pneumonia, unspecified organism Status: Acute Assessment and Plan: Per primary service. IV antibiotics as appropriate. Respiratory support. (4) Normocytic anemia: Code(s): D64.9 - Anemia, unspecified Status: Acute Assessment and Plan: Acute on chronic anemia without evidence of acute GI bleed per history. Significant decline over the past few months. Anemia workup pending. Defer to primary service. (5) Hypertension associated with type 2 diabetes mellitus: Code(s): E11.59 - Type 2 diabetes mellitus with other circulatory complications; I15.2 - Hypertension secondary to endocrine disorders Status: Acute Assessment and Plan: Stable at present. Continue to monitor closely. (6) Paroxysmal atrial fibrillation: Code(s): I48.0 - Paroxysmal atrial fibrillation Status: Acute Assessment and Plan: Twelve lead EKG from 2016 consistent with atrial fibrillation although no subsequent documentation. Patient is not currently on systemic anticoagulation. CHADS2 Vasc score 5. Need to review prior records in this regard, however, less contraindications systemic anticoagulation for about stroke risk reduction quite reasonable but given worsening anemia further workup pending. DVT prophylaxis at this time. At a minimum if able to tolerate aspirin 81 mg daily if she is not a candidate for systemic anticoagulation may be considered. 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 Patient describes pain as aching with occasional sharp muscle spasm extending to the left lower back. He was seen in urgent care for which she was diagnosed urinary tract infection placed on Bactrim. Pain was waxing and waning. Two taking pain medications at home she states which did help. He recurrence for pain and difficulty sleeping she presented to ER for further evaluation. Chest x-ray revealed left upper and lower lobe consolidation consistent with pneumonia for which she was started on I
[2022-03-31 10:37] LABS: IFOB Positive Control Positive; Immunochemical Fecal Occult Bl Negative (N)
[2022-03-31] MEDS: INSULIN ASPART (*BKC) 100 UNITS/ML SUB-Q ×2 (11:42→16:34)
[2022-03-31 11:54] LABS: Glucose Point of Care 295 mg/dl (65-105)
--- NOTE | 2022-03-31 12:08 | PM.IMPN ---
Progress Note: A&P Assessment and Plan (1) Pneumonia as manifestation of parasitic disease: Code(s): J16.8 - Pneumonia due to other specified infectious organisms; B89 - Unspecified parasitic disease Status: Acute Assessment and Plan: Chest x-ray shows a large region of consolidation in the posterior left upper lobe and she has been started on antibiotics for presumed pneumonia. Radiologist recommends contrast enhanced CT to further evaluate for the possibility of underlying malignancy though her renal function is worse than usual and she cannot receive contrast at this juncture. Continue antibi (2) Elevated troponin: Code(s): R77.8 - Other specified abnormalities of plasma proteins Status: Acute Assessment and Plan: no chest pain. likely noncardiac (3) Acute on chronic kidney failure: Code(s): N17.9 - Acute kidney failure, unspecified; N18.9 - Chronic kidney disease, unspecified Status: Acute Assessment and Plan: IV fluids, monitor electrolytes and creatinine. Improving (4) Normocytic anemia: Code(s): D64.9 - Anemia, unspecified Status: Acute Assessment and Plan: Hemoglobin and hematocrit have dropped over the past couple of months. Check iron studies, B12, and folates. (5) Insulin dependent diabetes mellitus: Status: Acute Assessment and Plan: Continue basal insulin. Initiate sliding scale insulin, Accu-Cheks, and hypoglycemic protocol. Check hemoglobin A1c. Subjective Date/time seen: 03/31/22 12:08 denies shortness of breath. Exam Narrative: General: Mildly ill-appearing female sitting up in bed. Weight: 69 kg. BMI: 27.8. HEENT: Wearing glasses and hearing aids. PERRL, EOMI. Conjunctivae anicteric. Tacky mucous membranes. Oropharynx is clear. Neck: Supple. No lymphadenopathy or jugular venous distention. Respiratory: Respirations are nonlabored. She is speaking in full sentences. Diminished lung sounds of the left upper lung with faint crackles and expiratory wheezing. Cardiovascular: Regular rate and rhythm with S1-S2. Gastrointestinal: Abdomen is soft, nontender, and nondistended with positive bowel sounds. Skin: Warm and dry. Generalized pallor. Some excoriations on the right leg. Extremities: No cyanosis or clubbing. 1+ edema of the right lower leg. Status post left vrxyj-hsg-gjza amputation. Radial and right pedal pulses intact. Neurological: Alert and oriented. Cranial nerves 2-12 are grossly intact. No gross focal deficits to casual conversation. Psychiatric: Pleasant and cooperative with normal mood and affect. Judgment and insight intact. Objective Data Vital Signs Vital Signs: Vital Signs - 24 hr 03/30/22 13:00 03/30/22 13:16 03/30/22 13:17 Temperature 98.1 F Pulse Rate 85 71 Respiratory Rate 16 21 H Blood Pressure 155/39 H 133/55 L Pulse Oximetry 95 97 97 Oxygen Delivery Room Air 03/30/22 13:30 03/30/22 13:31 03/30/22 13:45 Temperature Pulse Rate 71 74 68 Respiratory Rate 25 H 20 20 Blood Pressure 124/108 H Pulse Oximetry 96 98 Oxygen Delivery 03/30/22 13:46 03/30/22 14:03 03/30/22 14:15 Temperature Pulse Rate 69 69 68 Respiratory Rate 23 H 18 23 H Blood Pressure 138/114 H Pulse Oximetry 95 Oxygen Delivery 03/30/22 14:30 03/30/22 15:07 03/30/22 14:45 Temperature Pulse Rate 69 73 72 Respiratory Rate 22 H 24 H Blood Pressure Pulse Oximetry Oxygen Delivery 03/30/22 15:00 03/30/22 15:08 03/30/22 15:25 Temperature Pulse Rate 71 73 79 Respiratory Rate 19 23 H Blood Pressure 146/108 H Pulse Oximetry Oxygen Delivery 03/30/22 15:30 03/30/22 15:45 03/30/22 15:50 Temperature Pulse Rate 65 53 L 52 L Respiratory Rate 22 H 21 H 20 Blood Pressure 121/57 L Pulse Oximetry 97 99 Oxygen Delivery 03/30/22 16:00 03/30/22 16:01 03/30/22 16:15 Temperature Pulse Rate 57 L 52 L 54 L Resp
--- NOTE | 2022-03-31 12:10 | PC.NURSE ---
This patient, Maribell Dobbs, was transferred to [[id number]] on 03/31/22 at 1210. Personal belongings sent with patient. Report given to [SYLVIE Brunson]. Appropriate documentation sent with patient.
--- NOTE | 2022-03-31 12:20 | PC.NURSE ---
This patient, Maribell Dobbs, was received from [id number] on 03/31/22 at 1220. Patient/family oriented to unit policies and routines
[2022-03-31] MEDS: ALBUTEROL SULFATE NEB 2.5 MG/3 ML INH INHALATION ×2 (14:46→20:27)
[2022-03-31] MEDS: IPRATROPIUM BR 0.02% INH SOLN 0.5 MG/2.5 ML VIAL INHALATION ×2 (14:46→20:26)
[2022-03-31 16:45] LABS: Glucose Point of Care 227 mg/dl (65-105)
[2022-03-31 22:19] LABS: Glucose Point of Care 302 mg/dl (65-105)
[2022-03-31] MEDS: INSULIN ASPART (*BKC) 100 UNITS/ML 15 UNITS SUB-Q (22:20)
[2022-03-31] MEDS: HYDROcodone/acetaminophen (*CRX) 5-325 MG TABLET 1 TAB PO (22:21)
--- NOTE | 2022-03-31 23:39 | ECHO_ITS ---
Patient Info Name: Maribell Dobbs Age: 81 years : 1940 Gender: Female Ht: 62 in Wt: 152 lbs BSA: 1.76 m2 HR: 72 bpm BP: 136 / 55 mmHg Heart Rhythm: Sinus Rhythm Exam Date: 03/31/2022 8:30 AM Exam Location: [facility] Patient Status: Inpatient Admit Date: 03/30/2022 Staff Ordering Physician: Samira May PA-C Incinerator Attendant: Wily Oakes RDCS, RT Attending Provider: Suresh Yip MD Referring Physician: Lalo GRAMAJO; Exam Type: CA echo doppler color flow Study Info Indications I50.9 - Heart failure, unspecified Complete two-dimensional, color flow and Doppler transthoracic echocardiogram is performed. Strain analysis performed. Summary 1. Complete two-dimensional, color flow and Doppler transthoracic echocardiogram is performed. 2. Left ventricular chamber dimension is normal. 3. Left ventricular systolic function is normal, estimated at 60-65%. 4. There is mildly increased left ventricular wall thickness. 5. The left ventricular diastolic function is grade I diastolic dysfunction. 6. Global longitudinal strain is mildly elevated at -18 %. 7. There is trace tricuspid valve regurgitation. 8. Unable to assess PA systolic pressure due to poor spectral resolution of tricuspid regurgitant jet velocity. 9. There is trace mitral valve regurgitation. Left Ventricle Left ventricular chamber dimension is normal. Left ventricular systolic function is normal, estimated at 60-65%. There is mildly increased left ventricular wall thickness. The left ventricular diastolic function is grade I diastolic dysfunction. Global longitudinal strain is mildly elevated at -18 %. Right Ventricle Right ventricular chamber dimension is normal. Right ventricular systolic function is normal. Left Atria Left atrial chamber dimension is normal. Right Atria Right atrial chamber dimension is normal. Aortic Valve The aortic valve is not well visualized. There is no aortic valve stenosis. There is no aortic valve regurgitation. Pulmonic Valve The pulmonic valve is not well visualized. There is trace pulmonic regurgitation. Mitral Valve The mitral valve has normal leaflets. There is trace mitral valve regurgitation. The mitral valve annulus is moderately calcified. Tricuspid Valve The tricuspid valve leaflets are normal. There is trace tricuspid valve regurgitation. Unable to assess PA systolic pressure due to poor spectral resolution of tricuspid regurgitant jet velocity. Pericardium/Pleural The pericardium appears epicardial fat pad. There is small pericardial effusion. Inferior Vena Cava Dilated inferior vena cava with >50% collapse upon inspiration consistent with elevated right atrial pressure, 10 mmHg. Aorta The aortic root size at the sinus of Valsalva is normal. There is mild aortic atherosclerosis. Left Ventricular Outflow Tract Name Value Normal LVOT 2D LVOT Diameter 2.0 cm LVOT Doppler LVOT Peak Gradient 7 mmHg LVOT Mean Gradient 4 mmHg LVOT VTI 31 cm LVOT
[2022-04-01] VITALS (12 sets, daily range): BP systolic 129–154; BP diastolic 55–76; PULSE 70–83; RESP 16–20; TEMP 36.3–36.9; O2SAT 96–100
[2022-04-01 06:37] LABS: Anion Gap 6 mmol/L (8-16); Blood Urea Nitrogen 27 mg/dL (7-17); Calcium 8.5 mg/dL (8.4-10.2); Carbon Dioxide 27 mmol/L (22-30); Chloride 105 mmol/L (98-107); Estimated CRCL calculation 22 ml/min; Estimated Glomerular Filt Rate 31; Glucose 103 mg/dL (65-110); Potassium 4.2 mmol/L (3.4-5.0); Sodium 138 mmol/L (137-145)
[2022-04-01] MEDS: IPRATROPIUM BR 0.02% INH SOLN 0.5 MG/2.5 ML VIAL INHALATION ×3 (08:01→19:29)
[2022-04-01] MEDS: ALBUTEROL SULFATE NEB 2.5 MG/3 ML INH INHALATION ×3 (08:01→19:29)
[2022-04-01] MEDS: PANTOPRAZOLE 40 MG TABLET PO (08:18)
[2022-04-01] MEDS: MULTIVITAMINS THERAPEUTIC TAB (*BKC) 1 TABLET PO (08:18)
[2022-04-01] MEDS: ATORVASTATIN 20 MG TABLET PO (08:18)
[2022-04-01] MEDS: OMEGA 3 POLYUNSAT FATTY ACIDS 1 GM CAP PO (08:18)
[2022-04-01] MEDS: VITAMIN E 400 UNIT CAPSULE PO (08:18)
[2022-04-01] MEDS: ENOXAPARIN 30 MG/0.3 ML SYRINGE SUB-Q (08:18)
[2022-04-01 09:37] LABS: Glucose Point of Care 125 mg/dl (65-105)
--- NOTE | 2022-04-01 09:59 | PM.IMPN ---
Progress Note: A&P Assessment and Plan (1) Pneumonia as manifestation of parasitic disease: Code(s): J16.8 - Pneumonia due to other specified infectious organisms; B89 - Unspecified parasitic disease Status: Acute Assessment and Plan: Chest x-ray shows a large region of consolidation in the posterior left upper lobe and she has been started on antibiotics for presumed pneumonia. Radiologist recommends contrast enhanced CT to further evaluate for the possibility of underlying malignancy though her renal function is worse than usual and she cannot receive contrast at this juncture. (2) Elevated troponin: Code(s): R77.8 - Other specified abnormalities of plasma proteins Status: Acute Assessment and Plan: no chest pain. likely noncardiac (3) Acute on chronic kidney failure: Code(s): N17.9 - Acute kidney failure, unspecified; N18.9 - Chronic kidney disease, unspecified Status: Acute Assessment and Plan: IV fluids, monitor electrolytes and creatinine. Improving (4) Normocytic anemia: Code(s): D64.9 - Anemia, unspecified Status: Acute Assessment and Plan: Hemoglobin and hematocrit have dropped over the past couple of months. iron studies suggest iron deficiency anemia. started on daily iron supplementation. B12, and folates within normal limits. Patient will benefit from outpatient GI evaluation (5) Insulin dependent diabetes mellitus: Status: Acute Assessment and Plan: Continue basal insulin. Initiate sliding scale insulin, Accu-Cheks, and hypoglycemic protocol. Check hemoglobin A1c. Subjective Date/time seen: 04/01/22 09:59 Interval history: No overnight issues. Patient is sitting in bed comfortable. On room air Exam Narrative: General: sitting up in bed. HEENT: PERRL, EOMI. Conjunctivae anicteric. Oropharynx is clear. Neck: Supple. No lymphadenopathy or jugular venous distention. Respiratory: Respirations are nonlabored. Diminished lung sounds of the left upper lung. Cardiovascular: Regular rate and rhythm with S1-S2. Gastrointestinal: Abdomen is soft, nontender, and nondistended with positive bowel sounds. Skin: Warm and dry. Generalized pallor. Some excoriations on the right leg. Extremities: No cyanosis or clubbing. Status post left iwpcx-brw-idyw amputation. Radial and right pedal pulses intact. Neurological: Alert and oriented. Cranial nerves 2-12 are grossly intact. No gross focal deficits to casual conversation. Psychiatric: Pleasant and cooperative with normal mood and affect. Judgment and insight intact. Objective Data Vital Signs Vital Signs: Vital Signs - 24 hr 03/31/22 10:00 03/31/22 11:55 03/31/22 12:46 Temperature 97.7 F 97.0 F L Pulse Rate 64 63 63 Respiratory Rate 18 16 Blood Pressure 138/48 L 149/71 H Pulse Oximetry 98 97 Oxygen Delivery 03/31/22 14:47 03/31/22 14:56 03/31/22 16:00 Temperature 97.9 F Pulse Rate 64 69 67 Respiratory Rate 16 16 16 Blood Pressure 135/52 L Pulse Oximetry 98 Oxygen Delivery 03/31/22 20:30 03/31/22 20:00 04/01/22 00:00 Temperature 98.4 F Pulse Rate 71 78 Respiratory Rate 14 20 Blood Pressure 129/76 Pulse Oximetry 100 Oxygen Delivery Room Air 04/01/22 05:56 04/01/22 08:02 04/01/22 08:03 Temperature 97.4 F L Pulse Rate 83 72 Respiratory Rate 18 16 Blood Pressure 154/74 H Pulse Oximetry 97 96 Oxygen Delivery Room Air 04/01/22 08:09 04/01/22 08:20 Temperature Pulse Rate 70 Respiratory Rate 16 Blood Pressure Pulse Oximetry Oxygen Delivery Room Air Intake/Output Intake/Output: Intake & Output 03/29/22 03/30/22 03/31/22 04/01/22 23:59 23:59 23:59 23:59 Intake Total 1400 2147 780 Output Total 250 1250 700 Balance 1150 897 80 Meds/Results Medications: Active Medications Generic Name Dose Route Start Last Admin Trade Name Freq PRN Reason Stop Dose Admin
[2022-04-01 11:22] LABS: Glucose Point of Care 466 mg/dl (65-105)
[2022-04-01 11:22] LABS: Glucose Point of Care 432 mg/dl (65-105)
[2022-04-01 11:50] LABS: Glucose Point of Care 468 mg/dl (65-105)
[2022-04-01] MEDS: INSULIN ASPART (*BKC) 100 UNITS/ML 15 UNITS SUB-Q (12:11)
[2022-04-01] MEDS: INSULIN ASPART (*BKC) 100 UNITS/ML SUB-Q ×2 (12:20→17:13)
[2022-04-01] MEDS: HYDROcodone/acetaminophen (*CRX) 5-325 MG TABLET 1 TAB PO (16:35)
[2022-04-01 17:01] LABS: Glucose Point of Care 282 mg/dl (65-105)
[2022-04-02] VITALS (10 sets, daily range): BP systolic 102–159; BP diastolic 48–85; PULSE 68–91; RESP 16–20; TEMP 35.8–36.6; O2SAT 92–99
[2022-04-02 07:24] LABS: Glucose Point of Care 145 mg/dl (65-105)
[2022-04-02] MEDS: ALBUTEROL SULFATE NEB 2.5 MG/3 ML INH INHALATION ×3 (08:16→20:19)
[2022-04-02] MEDS: IPRATROPIUM BR 0.02% INH SOLN 0.5 MG/2.5 ML VIAL INHALATION ×3 (08:16→20:18)
[2022-04-02] MEDS: OMEGA 3 POLYUNSAT FATTY ACIDS 1 GM CAP PO (08:28)
[2022-04-02] MEDS: MULTIVITAMINS THERAPEUTIC TAB (*BKC) 1 TABLET PO (08:29)
[2022-04-02] MEDS: ENOXAPARIN 30 MG/0.3 ML SYRINGE SUB-Q (08:29)
[2022-04-02] MEDS: ATORVASTATIN 20 MG TABLET PO (08:29)
[2022-04-02] MEDS: FERROUS SULFATE 324 MG TABLET PO (08:29)
[2022-04-02] MEDS: PANTOPRAZOLE 40 MG TABLET PO (08:29)
[2022-04-02] MEDS: VITAMIN E 400 UNIT CAPSULE PO (08:29)
[2022-04-02] MEDS: CHOLECALCIFEROL 1,000 UNITS TABLET 5000 UNITS PO (08:29)
[2022-04-02 08:36] LABS: Anion Gap 4 mmol/L (8-16); Blood Urea Nitrogen 20 mg/dL (7-17); Calcium 8.8 mg/dL (8.4-10.2); Carbon Dioxide 29 mmol/L (22-30); Chloride 103 mmol/L (98-107); Estimated CRCL calculation 29 ml/min; Estimated Glomerular Filt Rate 43; Glucose 143 mg/dL (65-110); Potassium 4.5 mmol/L (3.4-5.0); Sodium 136 mmol/L (137-145)
--- NOTE | 2022-04-02 11:10 | PM.IMPN ---
Progress Note: A&P Assessment and Plan (1) Pneumonia as manifestation of parasitic disease: Code(s): J16.8 - Pneumonia due to other specified infectious organisms; B89 - Unspecified parasitic disease Status: Acute Assessment and Plan: Chest x-ray shows a large region of consolidation in the posterior left upper lobe and she has been started on antibiotics for presumed pneumonia. Radiologist recommends contrast enhanced CT scan her creatinine can now tolerate so we will order this today. Patient is agreeable (2) Elevated troponin: Code(s): R77.8 - Other specified abnormalities of plasma proteins Status: Acute Assessment and Plan: no chest pain. likely noncardiac (3) Acute on chronic kidney failure: Code(s): N17.9 - Acute kidney failure, unspecified; N18.9 - Chronic kidney disease, unspecified Status: Acute Assessment and Plan: IV fluids, monitor electrolytes and creatinine. Improving (4) Normocytic anemia: Code(s): D64.9 - Anemia, unspecified Status: Acute Assessment and Plan: Hemoglobin and hematocrit have dropped over the past couple of months. iron studies suggest iron deficiency anemia. started on daily iron supplementation. B12, and folates within normal limits. Patient will benefit from outpatient GI evaluation (5) Insulin dependent diabetes mellitus: Status: Acute Assessment and Plan: Continue basal insulin. Initiate sliding scale insulin, Accu-Cheks, and hypoglycemic protocol. Check hemoglobin A1c. Subjective Date/time seen: 04/02/22 11:10 No complaints Exam Narrative: General: sitting up in bed. HEENT: PERRL, EOMI. Conjunctivae anicteric. Oropharynx is clear. Neck: Supple. No lymphadenopathy or jugular venous distention. Respiratory: Respirations are nonlabored. Diminished lung sounds of the left upper lung. Cardiovascular: Regular rate and rhythm with S1-S2. Gastrointestinal: Abdomen is soft, nontender, and nondistended with positive bowel sounds. Skin: Warm and dry. Generalized pallor. Some excoriations on the right leg. Extremities: No cyanosis or clubbing. Status post left nqfhs-hnd-fhum amputation. Radial and right pedal pulses intact. Neurological: Alert and oriented. Cranial nerves 2-12 are grossly intact. No gross focal deficits to casual conversation. Psychiatric: Pleasant and cooperative with normal mood and affect. Judgment and insight intact. Objective Data Vital Signs Vital Signs: Vital Signs - 24 hr 04/01/22 14:30 04/01/22 14:00 04/01/22 14:45 Temperature 97.7 F Pulse Rate 83 81 78 Respiratory Rate 16 16 16 Blood Pressure 150/71 H Pulse Oximetry 100 Oxygen Delivery 04/01/22 19:32 04/01/22 19:32 04/01/22 19:42 Temperature Pulse Rate 75 78 Respiratory Rate 16 16 Blood Pressure Pulse Oximetry 96 Oxygen Delivery Room Air 04/01/22 22:23 04/01/22 20:00 04/02/22 05:47 Temperature 97.4 F L 96.5 F L Pulse Rate 78 78 87 Respiratory Rate 18 18 18 Blood Pressure 136/55 L 125/48 L Pulse Oximetry 100 100 92 Oxygen Delivery Room Air 04/02/22 08:10 04/02/22 08:18 04/02/22 08:18 Temperature Pulse Rate 73 77 Respiratory Rate 16 16 Blood Pressure Pulse Oximetry 96 Oxygen Delivery Room Air Intake/Output Intake/Output: Intake & Output 03/30/22 03/31/22 04/01/22 04/02/22 23:59 23:59 23:59 23:59 Intake Total 1400 2147 1200 340 Output Total 250 1250 700 300 Balance 1150 897 500 40 Meds/Results Medications: Active Medications Generic Name Dose Route Start Last Admin Trade Name Freq PRN Reason Stop Dose Admin Acetaminophen 650 mg 03/31/22 21:54 Acetaminophen 325 Mg Tablet PO Q6H PRN Mild Pain (1-3) or Fever Hydrocodone Bitart/Acetaminophen 1 tab 03/31/22 21:54 04/01/22 16:35 Hydrocodone/Acetaminophen (*Crx) 5-325 Mg Tablet PO 1 tab Q6H PRN Administration Pain Rated 4-10 Amandeep
[2022-04-02 11:34] LABS: Glucose Point of Care 311 mg/dl (65-105)
[2022-04-02] MEDS: INSULIN ASPART (*BKC) 100 UNITS/ML SUB-Q ×2 (11:45→17:29)
[2022-04-02] MEDS: HYDROcodone/acetaminophen (*CRX) 5-325 MG TABLET 1 TAB PO (16:00)
[2022-04-02 16:28] LABS: Glucose Point of Care 224 mg/dl (65-105)
[2022-04-02 16:54] LABS: Pneumococcal Antigen Urine Not Detected (Not Detected)
[2022-04-02] MEDS: AZITHROMYCIN 250 MG TABLET 500 MG PO (21:44)
[2022-04-02] MEDS: CEFDINIR 300 MG CAPSULE PO (21:44)
[2022-04-02] MEDS: ACETAMINOPHEN 325 MG TABLET 650 MG PO (21:47)
[2022-04-02 23:29] LABS: Glucose Point of Care 191 mg/dl (65-105)
[2022-04-03] VITALS (10 sets, daily range): BP systolic 126–157; BP diastolic 51–90; PULSE 72–109; RESP 18–22; TEMP 36.7–36.8; O2SAT 90–97
[2022-04-03] MEDS: IPRATROPIUM BR 0.02% INH SOLN 0.5 MG/2.5 ML VIAL INHALATION ×3 (02:16→19:40)
[2022-04-03] MEDS: ALBUTEROL SULFATE NEB 2.5 MG/3 ML INH INHALATION ×3 (02:16→19:40)
[2022-04-03 08:13] LABS: Glucose Point of Care 150 mg/dl (65-105)
[2022-04-03] MEDS: OMEGA 3 POLYUNSAT FATTY ACIDS 1 GM CAP PO (09:00)
[2022-04-03] MEDS: PANTOPRAZOLE 40 MG TABLET PO (09:00)
[2022-04-03] MEDS: FERROUS SULFATE 324 MG TABLET PO (09:00)
[2022-04-03] MEDS: VITAMIN E 400 UNIT CAPSULE PO (09:00)
[2022-04-03] MEDS: ATORVASTATIN 20 MG TABLET PO (09:00)
[2022-04-03] MEDS: MULTIVITAMINS THERAPEUTIC TAB (*BKC) 1 TABLET PO (09:00)
[2022-04-03] MEDS: AZITHROMYCIN 250 MG TABLET 500 MG PO (09:01)
[2022-04-03] MEDS: ENOXAPARIN 30 MG/0.3 ML SYRINGE SUB-Q (09:01)
[2022-04-03] MEDS: HYDROcodone/acetaminophen (*CRX) 5-325 MG TABLET 1 TAB PO (09:05)
--- NOTE | 2022-04-03 11:17 | PM.IMPN ---
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 To note patient also has bilateral adrenal lesions as well. Consult Oncology and also consult pulmonology. Will need tissue diagnosis. (2) Elevated troponin: Code(s): R77.8 - Other specified abnormalities of plasma proteins Status: Acute Assessment and Plan: Likely secondary to type 2 [place]. No chest pain (3) Acute on chronic kidney failure: Code(s): N17.9 - Acute kidney failure, unspecified; N18.9 - Chronic kidney disease, unspecified Status: Acute Assessment and Plan: IV fluids, monitor electrolytes and creatinine. Improving (4) Normocytic anemia: Code(s): D64.9 - Anemia, unspecified Status: Acute Assessment and Plan: Monitor and transfuse as needed. (5) Insulin dependent diabetes mellitus: Status: Acute Assessment and Plan: Continue basal insulin. Initiate sliding scale insulin, Accu-Cheks, and hypoglycemic protocol. Check hemoglobin A1c. Subjective Date/time seen: 04/03/22 11:17 No complaints Exam Narrative: General: sitting up in bed. HEENT: PERRL, EOMI. Conjunctivae anicteric. Oropharynx is clear. Neck: Supple. No lymphadenopathy or jugular venous distention. Respiratory: Respirations are nonlabored. Diminished lung sounds of the left upper lung. Cardiovascular: Regular rate and rhythm with S1-S2. Gastrointestinal: Abdomen is soft, nontender, and nondistended with positive bowel sounds. Skin: Warm and dry. Generalized pallor. Some excoriations on the right leg. Extremities: No cyanosis or clubbing. Status post left gyywn-tfg-ihom amputation. Radial and right pedal pulses intact. Neurological: Alert and oriented. Cranial nerves 2-12 are grossly intact. No gross focal deficits to casual conversation. Psychiatric: Pleasant and cooperative with normal mood and affect. Judgment and insight intact. Objective Data Vital Signs Vital Signs: Vital Signs - 24 hr 04/02/22 13:48 04/02/22 13:55 04/02/22 14:00 Temperature 97.8 F Pulse Rate 68 72 73 Respiratory Rate 16 16 18 Blood Pressure 102/85 Pulse Oximetry 99 Oxygen Delivery Fraction of Inspired Oxygen 04/02/22 20:12 04/02/22 20:21 04/02/22 20:23 Temperature Pulse Rate 87 87 88 Respiratory Rate 20 20 20 Blood Pressure Pulse Oximetry 95 Oxygen Delivery Room Air Fraction of Inspired Oxygen 0.21 04/02/22 21:42 04/02/22 20:00 04/03/22 02:05 Temperature 97.8 F Pulse Rate 91 84 Respiratory Rate 18 22 H Blood Pressure 159/83 H Pulse Oximetry 99 Oxygen Delivery Room Air Fraction of Inspired Oxygen 04/03/22 02:17 04/03/22 05:59 04/03/22 08:42 Temperature 98.3 F Pulse Rate 86 109 H Respiratory Rate 20 18 Blood Pressure 145/59 H Pulse Oximetry 90 92 Oxygen Delivery Room Air Fraction of Inspired Oxygen 04/03/22 08:42 04/03/22 08:56 04/03/22 09:00 Temperature Pulse Rate 96 102 H Respiratory Rate 20 20 Blood Pressure Pulse Oximetry Oxygen Delivery Room Air Fraction of Inspired Oxygen Intake/Output Intake/Output: Intake & Output 03/31/22 04/01/22 04/02/22 04/03/22 23:59 23:59 23:59 23:59 Intake Total 2147 1200 1560 450 Output Total 1250 700 305 200 Balance 116 532 5427 250 Meds/Results Medications: Active Medications Generic Name Dose Route Start Last Admin Trade Name Freq PRN Reason Stop Dose Admin Acetaminophen 650 mg 03/31/22 21:54 04/02/22 21:47 Acetaminophen 325 Mg Tablet PO 650 mg Q6H PRN Administration Mild Pain (1-3) or Fever Hydrocodone Bitart/Acetaminophen 1 tab 03/31/22 21:54
[2022-04-03 11:42] LABS: Glucose Point of Care 262 mg/dl (65-105)
[2022-04-03] MEDS: INSULIN ASPART (*BKC) 100 UNITS/ML SUB-Q (11:53)
[2022-04-03 13:11] LABS: Albumin Level 3.5 g/dL (3.5-5.1); Lactate Dehydrogenase 698 U/L (313-618)
--- NOTE | 2022-04-03 13:47 | PCOTNOTE ---
Attempted to see Pt this PM, however tech present to take Pt for testing at this time.
--- NOTE | 2022-04-03 13:56 | PM.PNCARD ---
Progress Note: A&P Assessment and Plan (1) Elevated troponin: Code(s): R77.8 - Other specified abnormalities of plasma proteins <SARAH Winter - Last Filed: 04/03/22 16:22> Status: Acute <SARAH Winter - Last Filed: 04/03/22 16:22> Assessment and Plan: Mildly elevated flat troponin consistent with type 2 infarction. this does not represent acute coronary syndrome and/or plaque rupture. This is seen in the setting of acute on chronic anemia, acute on chronic kidney injury, and pneumonia. Patient has atypical symptoms although multiple risk factors for underlying CAD. EKG is without acute ischemic changes. Continue statin Outpatient ischemic eval Echo showed normal LV systolic function, EF 60 - 65%, grade I diastolic dysfunction. No specific cardiac recommendations to make at this time. I have arranged for outpatient follow up. Cardiology will sign off for now. Please do not hesitate to contact us with further questions. <SARAH Winter - Last Filed: 04/03/22 16:22> (2) Acute on chronic kidney failure: Code(s): N17.9 - Acute kidney failure, unspecified; N18.9 - Chronic kidney disease, unspecified <SARAH Winter - Last Filed: 04/03/22 16:22> Status: Acute <SARAH Winter - Last Filed: 04/03/22 16:22> Assessment and Plan: Per primary service. Avoid nephrotoxic agents. Monitor closely. <SARAH Winter - Last Filed: 04/03/22 16:22> (3) Community acquired pneumonia: Code(s): J18.9 - Pneumonia, unspecified organism <SARAH Winter - Last Filed: 04/03/22 16:22> Status: Acute <SARAH Winter - Last Filed: 04/03/22 16:22> Assessment and Plan: Per primary service. IV antibiotics as appropriate. Respiratory support. <SARAH Winter - Last Filed: 04/03/22 16:22> (4) Normocytic anemia: Code(s): D64.9 - Anemia, unspecified <SARAH Winter - Last Filed: 04/03/22 16:22> Status: Acute <SARAH Winter - Last Filed: 04/03/22 16:22> Assessment and Plan: Acute on chronic anemia without evidence of acute GI bleed per history. Significant decline over the past few months. Anemia workup pending. Defer to primary service. <SARAH Winter - Last Filed: 04/03/22 16:22> (5) Hypertension associated with type 2 diabetes mellitus: Code(s): E11.59 - Type 2 diabetes mellitus with other circulatory complications; I15.2 - Hypertension secondary to endocrine disorders <SARAH Winter - Last Filed: 04/03/22 16:22> Status: Acute <SARAH Winter - Last Filed: 04/03/22 16:22> Assessment and Plan: Stable at present. Continue to monitor closely. <SARAH Winter - Last Filed: 04/03/22 16:22> (6) Paroxysmal atrial fibrillation: Code(s): I48.0 - Paroxysmal atrial fibrillation <SARAH Winter - Last Filed: 04/03/22 16:22> Status: Acute <SARAH Winter - Last Filed: 04/03/22 16:22> Assessment and Plan: Twelve lead EKG from 2016 consistent with atrial fibrillation although no subsequent documentation. Currently in sinus rhythm. Patient is not currently on systemic anticoagulation. CHADS2 Vasc score 5, a/c indicated. However, plan for lung biopsy during this hospitalization so will not initiate a/c today. Consider outpatient monitor car operator to assess for AF recurrence/burden <SARAH Winter - Last Filed: 04/03/22 16:22> Additional Plan Attending addendum: I agree with the above documentation and plan of care as outlined. <Juan Carlos Bowen MD - Last Filed: 04/03/22 16:37> Subjective Date/time seen: 04/03/22 13:56 Cardiology follow up for elevated troponin Feels well today. Does complain of some back pain. No chest pain, shortness of breath, or palpitations. <SARAH Winter - Last Filed: 04/03/22 16:22> Review of Systems Review
[2022-04-03 14:53] LABS: pH Pleural Fluid 7.454 (7.210-7.500)
--- NOTE | 2022-04-03 15:43 | PCRCNOTE ---
Window of time for administration has passed. See next scheduled administration.
[2022-04-03 16:22] LABS: Appearance Pleural Fluid Hazy (Clear); Color Pleural Fluid Yellow (Colorless); Monocytes Pleural Fluid 82 %; Nucleated Cell Pleural Fluid 3605 /uL (0-1000); Pleural fluid source Pleural fluid; RBC Pleural Fluid 0 /uL (0-0)
[2022-04-03 16:23] LABS: Neutrophils Pleural Fluid 1 % (0-25)
[2022-04-03 16:24] LABS: Lymphocytes Pleural Fluid 16 %; Macrophages Pleural Fluid 1 %
[2022-04-03 16:53] LABS: Glucose Point of Care 167 mg/dl (65-105)
[2022-04-03 17:56] LABS: Legionella pneumophila Ag Ur Not Detected (Not Detected)
[2022-04-03] MEDS: ACETAMINOPHEN 325 MG TABLET 650 MG PO (20:22)
[2022-04-03] MEDS: CEFDINIR 300 MG CAPSULE PO (20:23)
[2022-04-03 20:38] LABS: Glucose Point of Care 211 mg/dl (65-105)
[2022-04-04] VITALS (12 sets, daily range): BP systolic 146–154; BP diastolic 59–83; PULSE 78–101; RESP 16–20; TEMP 36.2–37.4; O2SAT 91–98
[2022-04-04] MEDS: ALBUTEROL SULFATE NEB 2.5 MG/3 ML INH INHALATION ×4 (01:20→20:32)
[2022-04-04] MEDS: IPRATROPIUM BR 0.02% INH SOLN 0.5 MG/2.5 ML VIAL INHALATION ×4 (01:20→20:32)
[2022-04-04 08:18] LABS: Glucose Point of Care 167 mg/dl (65-105)
[2022-04-04] MEDS: MULTIVITAMINS THERAPEUTIC TAB (*BKC) 1 TABLET PO (08:36)
[2022-04-04] MEDS: ENOXAPARIN 30 MG/0.3 ML SYRINGE SUB-Q (08:36)
[2022-04-04] MEDS: FERROUS SULFATE 324 MG TABLET PO (08:36)
[2022-04-04] MEDS: VITAMIN E 400 UNIT CAPSULE PO (08:36)
[2022-04-04] MEDS: ATORVASTATIN 20 MG TABLET PO (08:36)
[2022-04-04] MEDS: CHOLECALCIFEROL 1,000 UNITS TABLET 5000 UNITS PO (08:36)
[2022-04-04] MEDS: OMEGA 3 POLYUNSAT FATTY ACIDS 1 GM CAP PO (08:37)
[2022-04-04] MEDS: PANTOPRAZOLE 40 MG TABLET PO (08:37)
[2022-04-04] MEDS: HYDROcodone/acetaminophen (*CRX) 5-325 MG TABLET 1 TAB PO ×3 (08:40→21:24)
[2022-04-04 09:26] LABS: Anion Gap 6 mmol/L (8-16); Blood Urea Nitrogen 20 mg/dL (7-17); Calcium 9.5 mg/dL (8.4-10.2); Carbon Dioxide 29 mmol/L (22-30); Chloride 102 mmol/L (98-107); Estimated CRCL calculation 26 ml/min; Estimated Glomerular Filt Rate 39; Glucose 194 mg/dL (65-110); Potassium 4.3 mmol/L (3.4-5.0); Sodium 137 mmol/L (137-145)
--- NOTE | 2022-04-04 10:32 | PCNWS ---
Weekly nutritional screen. Patient is tolerating current diet with adequate intake (eating 100% of meals). No weight loss reported. No nutritional needs at this time. Patient also reports a good appetite. Agree with diet orders.
--- NOTE | 2022-04-04 11:47 | PM.IMPN ---
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 To note patient also has bilateral adrenal lesions as well. Consult Oncology and also consult pulmonology. Will need tissue diagnosis. (2) Elevated troponin: Code(s): R77.8 - Other specified abnormalities of plasma proteins Status: Acute Assessment and Plan: Likely secondary to type 2 [place]. No chest pain (3) Acute on chronic kidney failure: Code(s): N17.9 - Acute kidney failure, unspecified; N18.9 - Chronic kidney disease, unspecified Status: Acute Assessment and Plan: IV fluids, monitor electrolytes and creatinine. Improving (4) Normocytic anemia: Code(s): D64.9 - Anemia, unspecified Status: Acute Assessment and Plan: Monitor and transfuse as needed. (5) Insulin dependent diabetes mellitus: Status: Acute Assessment and Plan: Continue basal insulin. Initiate sliding scale insulin, Accu-Cheks, and hypoglycemic protocol. Check hemoglobin A1c. Subjective Date/time seen: 04/04/22 11:47 No complaints Exam Narrative: General: sitting up in bed. HEENT: PERRL, EOMI. Conjunctivae anicteric. Oropharynx is clear. Neck: Supple. No lymphadenopathy or jugular venous distention. Respiratory: Respirations are nonlabored. Diminished lung sounds of the left upper lung. Cardiovascular: Regular rate and rhythm with S1-S2. Gastrointestinal: Abdomen is soft, nontender, and nondistended with positive bowel sounds. Skin: Warm and dry. Generalized pallor. Some excoriations on the right leg. Extremities: No cyanosis or clubbing. Status post left [id number] amputation. Radial and right pedal pulses intact. Neurological: Alert and oriented. Cranial nerves 2-12 are grossly intact. No gross focal deficits to casual conversation. Psychiatric: Pleasant and cooperative with normal mood and affect. Judgment and insight intact. Objective Data Vital Signs Vital Signs: Vital Signs - 24 hr 04/03/22 13:50 04/03/22 14:55 04/03/22 14:55 Temperature 98.1 F Pulse Rate 77 72 72 Respiratory Rate 18 18 18 Blood Pressure 126/69 135/51 L 129/57 L Pulse Oximetry 96 96 97 Oxygen Delivery Fraction of Inspired Oxygen 04/03/22 20:00 04/03/22 19:44 04/03/22 19:44 Temperature Pulse Rate 90 90 Respiratory Rate 18 18 Blood Pressure Pulse Oximetry 96 Oxygen Delivery Room Air Room Air Fraction of Inspired Oxygen 04/03/22 19:55 04/03/22 21:25 04/04/22 01:20 Temperature 98.3 F Pulse Rate 90 94 78 Respiratory Rate 18 18 18 Blood Pressure 157/90 H Pulse Oximetry 94 Oxygen Delivery Fraction of Inspired Oxygen 04/04/22 01:30 04/04/22 05:33 04/04/22 09:40 Temperature 98.5 F Pulse Rate 78 97 Respiratory Rate 18 18 Blood Pressure 146/83 H Pulse Oximetry 91 95 Oxygen Delivery Room Air Fraction of Inspired Oxygen 04/04/22 09:40 04/04/22 09:49 04/04/22 09:49 Temperature Pulse Rate 98 91 Respiratory Rate 18 18 Blood Pressure Pulse Oximetry 95 Oxygen Delivery Fraction of Inspired Oxygen 04/04/22 08:00 Temperature Pulse Rate 91 Respiratory Rate 18 Blood Pressure Pulse Oximetry 95 Oxygen Delivery Room Air Fraction of Inspired Oxygen 0.21 Intake/Output Intake/Output: Intake & Output 04/01/22 04/02/22 04/03/22 04/04/22 23:59 23:59 23:59 23:59 Intake Total 1200 1560 1400 900 Output Total 700 305 210 Balance 500 1255 1190 900 Meds/Results Medications: Active Medications Generic Name Dose Route Start Last Admin Trade Name Freq PRN Reason Stop Dose Admin Acetaminophen 650 mg 03/31/22 21:54 04/03/22 20:2
--- NOTE | 2022-04-04 11:54 | PCNSR ---
On 04/04/22, the student, Mariia Haddad, provided care and completed [facility] documentation on this patient. I have reviewed the student's documentation and agree with the findings.
[2022-04-04 11:56] LABS: Glucose Point of Care 248 mg/dl (65-105)
--- NOTE | 2022-04-04 13:37 | PM.CNPUL ---
Assessment and Plan Assessment and plan (1) Community acquired pneumonia: Code(s): J18.9 - Pneumonia, unspecified organism Status: Acute Assessment and Plan: She has a LULand LLL infiltrate associated with a mass 8.9 cm with enlarged hilar lymph node and adrenal metastases. She is on antibiotic coverage for community-acquired pneumonia. WBC on admission is elevated 14.6 with left shift. She has not had typical symptoms such as cough, sputum production, fever, chills, change in GI function. She has had some left chest pain. Concern is for malignancy; 04/02/[address] shows ?8.9 cm necrotic mass in left lung, consistent with primary bronchogenic carcinoma. and metastatic lesions in adrenals. The thoracentesis was not diagnostic, only 10 ml available to remove, most of the labs pending. She may be a candidate for CT guided biopsy of her adrenal to avoid anesthesia for a bronchoscopy for a biopsy. She said that she wants to know if she has lung cancer, and would accept treatment. She may be a candidate for adrenal biopsy. Will continue to follow with you. History of Present Illness History of Present Illness Consult date: 04/04/22 Chief complaint: community-acquired pneumonia, Narrative: patient was seen April 04 at 15:45 It is her 82th birthday ! NEW: Maribell Dobbs is an 82-year-old woman with DM, HTN, lipids, CKD, PAF, hypothyroidism and a L BKA 2016 after a foot infection got out of control. She lives with 6 cats. She was admitted with GRISEL and LLL pneumonia with an abnormal left upper lobe infiltrate on March 30. She had an increase in troponin consistent with her baseline medical problems, acute on chronic renal failure, BUN was 32 and creat 2.2, better now, normocytic anemia. She is a never smoker, has no lung disease, was exposed to second hand smoke from her father and ex-. She worked in home health care. While she has been here, she had thick clear mucus on one occasion. She is on room air with saturation 98%. Yesterday April 03 she had 10 ml of yellow pleural fluid tapped for analysis, normal pH 7.45 and mildly elevated WBC 3605. Other labs on pleural fluid are pending. She needs a tissue diagnosis. A week prior to admission she had left sided chest pain with muscle spasms on the left side of her chest wrapping around to the lower back. She went to an Urgent Care where she was diagnosed with a UTI, treated with Bactrim. She has been weak and tired since then. 04/02/[address] ; 8.9 cm necrotic mass in left lung, consistent with primary bronchogenic carcinoma. 2. Left hilar lymphadenopathy and bilateral adrenal masses, consistent with metastatic disease. 3. Small left pleural effusion. Diagnostic thoracentesis is recommended. 4. Groundglass and airspace opacities in left lung lower lobe, consistent with postobstructive pneumonia. Review of Systems Review of Systems: intentional weight loss of 10 lb over several months cutting back on intake No chronic cough, hemoptysis, sputum, wheezing, or shortness of breath. She uses a wheelchair at home to get around her house to prevent falling using her left prosthesis for BKA 2015. She has stable swelling of the RLE. [facility] Past Medical History Medical History Chronic kidney disease, stage 3 Baseline creatinine is 1.10. Essential hypertension Gastroesophageal reflux disease Hyperlipidemia Insulin dependent diabetes mellitus Osteomyelitis Paroxysmal atrial fibrillation Vitamin D deficiency Surgical History Surgical History History of amputation of toe History of appendectomy History of bilateral cataract extraction History of cholecystectomy History of left below knee amputation History of tonsillectomy Family History Family History Father Family history of Parkinson's disea
[2022-04-04 17:06] LABS: Glucose Point of Care 193 mg/dl (65-105)
--- NOTE | 2022-04-04 18:44 | PDONCCN ---
HPI - Date of Consult Date/Time: 04/04/22 18:44 Requesting Physician: Nils Ragsdale MD Primary Care Provider: Alden Leal, DO - Consult Narrative Reason for consult: Lung mass Narrative: Maribell Dobbs is a 82 year old female with history of type 2 diabetes, hypertension, atrial fibrillation and chronic kidney disease came into the ER with left-sided chest pain for about a week duration. He was recently diagnosed with UTI and treated with Bactrim. She was tested negative for the COVID infection. CT chest done on April 02 showed 8.9 cm mass in the left lung consistent with lung cancer along with left hilar lymphadenopathy and bilateral adrenal masses. There was also postobstructive pneumonia. CT abdomen and pelvis showed ill-defined right renal mass and bilateral adrenal masses. Labs showed normocytic anemia with leukocytosis. She has been complaining of poor appetite. Denies any hemoptysis. No other new complaint. Review of Systems - Review of Systems All systems reviewed & are unremarkable except as noted in HPI and bel - Neurologic Reports system reviewed and no additional complaints, except as documented [facility] Medical History: Medical History (Last Reviewed 04/04/22 @ 16:58 by Nga Lynn MD) Chronic kidney disease, stage 3 Baseline creatinine is 1.10. Essential hypertension Gastroesophageal reflux disease Hyperlipidemia Insulin dependent diabetes mellitus Osteomyelitis Paroxysmal atrial fibrillation Vitamin D deficiency Surgical History: Surgical History (Last Reviewed 04/04/22 @ 16:58 by Nga Lynn MD) History of amputation of toe History of appendectomy History of bilateral cataract extraction History of cholecystectomy History of left below knee amputation History of tonsillectomy Family History: Family History (Last Reviewed 04/04/22 @ 16:58 by Nga Lynn MD) Father Family history of Parkinson's disease Patient's father is , Onset Age: 73 Mother Patient's mother is , Onset Age: 69 Uterine cancer - Social History Social History: Social History (Last Reviewed 04/04/22 @ 16:58 by Nga Lynn MD) Alcohol Use: Alcohol intake: never Substance Use: Substance use: never Others: Spiritual care concerns: No Living Arrangements: Living arrangements: with family Oppucation/Education: Occupation/Education: retired Smoking Status: Smoking status: Former smoker Meds Home Medications Medication Instructions Recorded Confirmed Type multivitamin 1 tablet PO DAILY 11/12/19 07/10/22 History omega-3 fatty acids 1,000 mg 1,000 mg PO DAILY 08/02/19 03/30/22 History capsule (Fish Oil Concentrate) vitamin E (dl, acetate) 180 mg 400 unit PO DAILY 08/02/19 03/30/22 History (400 unit) capsule blood-glucose meter (OneTouch #1 ea 11/23/20 03/30/22 Rx Ultra2 Meter) cholecalciferol (vitamin D3) 125 5,000 unit PO .every other day 07/04/21 03/30/22 History mcg (5,000 unit) capsule insulin aspart U-100 100 unit/mL 3 - 5 unit (0.03 - 0.05 mL) subcut 10/10/21 03/30/22 Rx (3 mL) subcutaneous pen (Novolog TID PRN Type 2 Diabetes #15 mL Flexpen U-100 Insulin aspart) diltiazem HCl 240 mg See Rx Instructions .Route 10/11/21 03/30/22 Rx capsule,extended release 24 hr, .COMPLEX #90 caps controlled (DILT-XR) losartan 50 mg tablet See Rx Instructions .Route 10/11/21 03/30/22 Rx .COMPLEX #90 tabs metformin 500 mg tablet See Rx Instructions .Route 10/11/21 03/30/22 Rx .COMPLEX #180 tabs atorvastatin 20 mg tablet 20 mg PO DAILY #90 tabs 11/04/21 03/30/22 Rx omeprazole 20 mg capsule,delayed 20 mg PO DAILY #90 caps 11/04/21 03/30/22 Rx release biotin 1 mg capsule 1 mg PO DAILY 02/13/22 03/30/22 History blood sugar diagnostic (OneTouch #100 strips 03/10/22 03/30/22 Rx Ultra Test strips) sulfamethoxazole 800 1 tablet PO BID 03/30/22 03/30/22 Histor
[2022-04-04 20:43] LABS: Glucose Point of Care 244 mg/dl (65-105)
[2022-04-05] VITALS (8 sets, daily range): BP systolic 131–137; BP diastolic 46–60; PULSE 89–104; RESP 16–22; TEMP 37.1–37.3; O2SAT 90–98
[2022-04-05] MEDS: ALBUTEROL SULFATE NEB 2.5 MG/3 ML INH INHALATION ×3 (03:46→14:05)
[2022-04-05] MEDS: IPRATROPIUM BR 0.02% INH SOLN 0.5 MG/2.5 ML VIAL INHALATION ×3 (03:47→14:05)
[2022-04-05 07:48] LABS: Glucose Point of Care 170 mg/dl (65-105)
[2022-04-05] MEDS: OMEGA 3 POLYUNSAT FATTY ACIDS 1 GM CAP PO (09:08)
[2022-04-05] MEDS: ENOXAPARIN 30 MG/0.3 ML SYRINGE SUB-Q (09:08)
[2022-04-05] MEDS: PANTOPRAZOLE 40 MG TABLET PO (09:08)
[2022-04-05] MEDS: MULTIVITAMINS THERAPEUTIC TAB (*BKC) 1 TABLET PO (09:08)
[2022-04-05] MEDS: VITAMIN E 400 UNIT CAPSULE PO (09:08)
[2022-04-05] MEDS: ATORVASTATIN 20 MG TABLET PO (09:09)
[2022-04-05] MEDS: FERROUS SULFATE 324 MG TABLET PO (09:09)
[2022-04-05] MEDS: HYDROcodone/acetaminophen (*CRX) 5-325 MG TABLET 1 TAB PO (09:12)
--- NOTE | 2022-04-05 10:31 | PM.DS ---
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 To note patient also has bilateral adrenal lesions as well. Consult Oncology and also consult pulmonology. Patient did have pleural effusion also on that side they were able to get enough fluid to get cytology. These results are still pending but she is doing okay can be discharged home with follow-up with Oncology. (2) Elevated troponin: Code(s): R77.8 - Other specified abnormalities of plasma proteins Status: Acute Assessment and Plan: Likely secondary to type 2 [place]. No chest pain (3) Acute on chronic kidney failure: Code(s): N17.9 - Acute kidney failure, unspecified; N18.9 - Chronic kidney disease, unspecified Status: Acute Assessment and Plan: IV fluids, monitor electrolytes and creatinine. Improving (4) Normocytic anemia: Code(s): D64.9 - Anemia, unspecified Status: Acute Assessment and Plan: Monitor and transfuse as needed. (5) Insulin dependent diabetes mellitus: Status: Acute Assessment and Plan: Resume home meds DS: Summary Hospital Course Hospital Course: See discharge plan diagnoses. Time Spent with Patient Time attestation: Total time spent providing and/or coordinating discharge services: Exam Narrative: General: sitting up in bed. HEENT: PERRL, EOMI. Conjunctivae anicteric. Oropharynx is clear. Neck: Supple. No lymphadenopathy or jugular venous distention. Respiratory: Respirations are nonlabored. Diminished lung sounds of the left upper lung. Cardiovascular: Regular rate and rhythm with S1-S2. Gastrointestinal: Abdomen is soft, nontender, and nondistended with positive bowel sounds. Skin: Warm and dry. Generalized pallor. Some excoriations on the right leg. Extremities: No cyanosis or clubbing. Status post left [id number] amputation. Radial and right pedal pulses intact. Neurological: Alert and oriented. Cranial nerves 2-12 are grossly intact. No gross focal deficits to casual conversation. Psychiatric: Pleasant and cooperative with normal mood and affect. Judgment and insight intact. DS: Data Data Completed and Pending Pending studies at discharge: Pending at discharge 04/03/22 12:31 Cytology [PTH] Routine Labs on day of discharge: Labs from last 24 hours 04/05/22 04/04/22 04/04/22 07:36 20:16 16:50 POC Capillary Glucose 170 H 244 H 193 H 04/04/22 11:48 POC Capillary Glucose 248 H Preliminary micro results at discharge 04/03/22 14:13 Anaerobic Culture - Preliminary Pleural Fluid Aerobic Culture - Preliminary Discharge Plan Discharge Attending physician on discharge: Suresh Yip Consulting providers: Byron Cheema ; Nga Lynn ; Toney Kuhn Discharging Clinician: Suresh Yip Patient Disposition: Home Health Service Activity: no preference Diet: as tolerated Discharge Instructions: Per care coordination: Patient to have [facility] for PT/OT eval and treat, and senior living. They can be reached at [phone] and will contact you to schedule their first visit. Patient Instructions: Antibiotic Form, Chest Pain (DC), Acute Kidney Injury (DC), Pain Management (DC), Anemia (DC), Thoracentesis (DC) Stand Alone Forms: General Discharge Information Follow-up/Referrals: Toney Kuhn MD [Physician] - Nga Lynn MD [Physician] - Alden Leal DO [Primary Care Provider] - Discharge Medications: Continued cholecalciferol
[2022-04-05 11:47] LABS: Glucose Point of Care 301 mg/dl (65-105)
[2022-04-05] MEDS: INSULIN ASPART (*BKC) 100 UNITS/ML SUB-Q ×2 (12:30→17:08)
[2022-04-05 16:20] LABS: Glucose Point of Care 223 mg/dl (65-105)
[2022-04-06 16:10] LABS: Glucose Pleural Fluid 244 mg/dL; LDH Pleural Fluid 607 U/L; Total Protein Pleural Fluid 3.4 g/dL
[2022-04-08 06:20] LABS: Albumin Pleural Fluid 1.5 g/dL
== END 2022-04-05 19:28 | disposition home health service (06) | DRG 193 ==
LOC: ANHED 14:30 → ANHIMU 16:47 → ANH3MEDSUR 03-31 11:51
PROVIDERS: Physician Assistant; Admitting Provider Chiropractor; Emergency Provider Emergency Medicine; PCP Internal Medicine; Visit Provider Hospitalist
DX: J18.9 Pneumonia, unspecified organism (principal); I21.A1 Myocardial infarction type 2; N17.9 Acute kidney failure, unspecified; J90 Pleural effusion, not elsewhere classified; C34.92 Malignant neoplasm of unspecified part of left bronchus or lung; C79.72 Secondary malignant neoplasm of left adrenal gland; C79.71 Secondary malignant neoplasm of right adrenal gland; E11.22 Type 2 diabetes mellitus with diabetic chronic kidney disease; I12.9 Hypertensive chronic kidney disease with stage 1 through stage 4 chronic kidney disease, or unspecified chronic kidney disease; N18.30 Chronic kidney disease, stage 3 unspecified; Z20.822 Contact with and (suspected) exposure to COVID-19; E78.5 Hyperlipidemia, unspecified; I48.0 Paroxysmal atrial fibrillation; K21.9 Gastro-esophageal reflux disease without esophagitis; D50.9 Iron deficiency anemia, unspecified; E03.9 Hypothyroidism, unspecified; E55.9 Vitamin D deficiency, unspecified; R77.8 Other specified abnormalities of plasma proteins; Z89.512 Acquired absence of left leg below knee; Z90.49 Acquired absence of other specified parts of digestive tract; Z79.84 Long term (current) use of oral hypoglycemic drugs; Z79.4 Long term (current) use of insulin; Z98.42 Cataract extraction status, left eye; Z98.41 Cataract extraction status, right eye; Z87.891 Personal history of nicotine dependence
CPT/HCPCS: 32555; 36415; 71046; 71260; 74176; 76775; 80048; 80053; 81001; 82040; 82042; 82274; 82550; 82570; 82607; 82728; 82746; 82945; 82948; 83036; 83540; 83550; 83605; 83615; 83690; 83735; 83880; 83986; 84145; 84155; 84157; 84443; 84484; 85025; 85610; 85730; 85999; 86140; 87040; 87070; 87075; 87205; 87449; 87899; 89051; 93005; 93306; 93971; 94640; 97161; 97165; 97535; 99285; A9270; C9803; J0456; J0696; J1650; J1815; J1956; J7030; Q9967; U0003; U0005

== ENCOUNTER 2022-04-16 22:11 | Inpatient (IN) | payer MEDICARE, MEDICAID, SELFPAY ==
--- NOTE | ~2022-04-16 | XR_ITS ---
EXAMINATION: XR chest 1V DATE: 04/16/2022 23:22 INDICATION: Pneumonia TECHNIQUE: frontal and lateral views of the chest were obtained. COMPARISON: Chest radiograph dated 04/03/2022 FINDINGS: Again seen is approximately 13.4 x 9.8 cm masslike opacity in the left mid to upper lung zone with ap pearance on prior CT of peripheral consolidation with residual central partially aerated lung favorin g pneumonia over malignancy. No other airspace opacities, pulmonary edema, pleural effusion or pneumo thorax. The cardiomediastinal silhouette is normal. Cholecystectomy clips in right upper quadrant. Ch ronic T12 and L1 burst fractures. Multiple old left rib fractures. IMPRESSION: 1. Persistent large masslike opacity in the left mid to upper lung zone most concerning for pneumonia with differential including primary bronchogenic carcinoma. Reviewed, dictated and finalized at location A. IMPRESSION: 1. Persistent large masslike opacity in the left mid to upper lung zone most co ncerning for pneumonia with differential including primary bronchogenic carcino
--- NOTE | ~2022-04-16 | CT_ITS ---
EXAMINATION: CT brain wo con DATE: 04/16/2022 23:10 INDICATION: injury . TECHNIQUE: Computed tomography (CT) of the head was performed without intravenous contrast. The mA wa s adjusted according to patient size. Iterative reconstruction technique was employed. The dose-lengt h product was 605.33 mGy-cm. COMPARISON: None FINDINGS: No acute intracranial hemorrhage or extra-axial fluid collection. No hydrocephalus, mass, or herniation. No acute ischemic infarct. Unremarkable dural venous sinus attenuation. No acute osseous abnormality. The aerated spaces are clear. Mild atrophy and chronic white matter change. Atherosclerotic intracranial calcifications. Bilateral lens replacements. IMPRESSION: No acute intracranial process. Reviewed, dictated and finalized at location K.
--- NOTE | ~2022-04-16 | XR_ITS ---
EXAMINATION: XR chest PICC line DATE: 04/21/2022 12:23 INDICATION: Central line placement. TECHNIQUE: A single frontal view of the chest was obtained. COMPARISON: Chest single view at 11:05 PM FINDINGS: There are airspace opacities in right lower lung zone and all left lung zones. There is a s mall left pleural effusion. No pneumothorax. Cardiomegaly is noted. A right upper extremity periphera lly inserted central venous catheter (PICC) is seen with tip in the superior vena cava. IMPRESSION: 1. PICC tip in the superior vena cava. 2. Airspace opacities in right lower lung zone and all left lung zones, consistent with pneumonia. 3. Small left pleural effusion. 4. Cardiomegaly. Reviewed, dictated and finalized at location A. IMPRESSION: 1. PICC tip in the superior vena cava. 2. Airspace opacities in right lower lung zone and all left lung zones, consist ent with pneumonia. 3. Small left pleural effusion. 4. Cardiomegaly.
--- NOTE | ~2022-04-16 | XR_ITS ---
EXAMINATION: [id number] DATE: 04/21/2022 11:08 INDICATION: Left pleural effusion TECHNIQUE: frontal view of the chest was obtained. COMPARISON: Chest radiograph dated 04/20/22 FINDINGS: Persistent consolidation in the left mid to upper lung zone. Improved aeration in the left lower lung zone with mild residual opacities but no discernible pleural effusion. Mild atelectasis at the right lung base. No pneumothorax or right-sided pleural effusion. Mild cardiomegaly. A few old left-sided rib fractures. IMPRESSION: 1. Improved aeration at the left lower lung zone with no residual left pleural effusion postthoracent esis. 2. Persistent consolidation in the left mid to upper lung zone consistent with pneumonia. Reviewed, dictated and finalized at location A. IMPRESSION: 1. Improved aeration at the left lower lung zone with no residual left pleural effusion postthoracentesis. 2. Persistent consolidation in the left mid to upper lung zone consistent with pneumonia.
--- NOTE | ~2022-04-16 | CT_ITS ---
EXAMINATION: CT thoracic lumbar wo con DATE: 04/16/2022 23:16 INDICATION: Back pain and midline tenderness to palpation post fall TECHNIQUE: Computed tomography (CT) of the thoracic and lumbar spine was performed without intravenou s contrast. Automated exposure control and iterative reconstruction technique were employed. The dose -length product was 1884.18 mGy-cm. COMPARISON: Chest CT dated 04/02/[address] abdomen and pelvis dated 04/01/2022 FINDINGS: Thoracic spine: 20 degrees thoracic dextroscoliosis. Sagittal alignment is normal. Chronic superior endplate compress ion fractures at T5 and T6 with with 20% vertebral body height loss. Additional chronic T12 and L1 bu rst fractures each with 40% anterior vertebral body height loss and with 3 mm retropulsion along the superior endplate of T12 and 4 mm retropulsion of the superior endplate of L1. This results in mild c entral canal stenosis at both levels. No acute fracture. Moderate disc height loss at T6-T7 through T 8-T9 with mild disc height loss at many of the remaining thoracic levels. There are bridging osteophy gus at multiple levels in the spine, consistent with diffuse idiopathic skeletal hyperostosis (DISH). Multilevel moderate thoracic facet osteoarthritis with fusion across the facet joints in the midthor acic spine. Multilevel mild neural foraminal stenosis throughout much of the thoracic spine. Again se en is a masslike region of consolidation in the superior segment of the left lower lobe with residual subtle aerated lung which therefore favors pneumonia over malignancy. There is an associated small l eft pleural effusion. Atherosclerotic coronary artery calcifications. Visualized thoracic aorta is no rmal in caliber with scattered atherosclerotic calcifications. Lumbar spine: 17 degrees lumbar levoscoliosis. 3-4 mm anterolisthesis L4 on L5. L1 burst fracture as previously det eladio. The more caudal lumbar vertebral body heights are normal. No acute fracture. Severe disc heigh t loss with vacuum phenomena at L1-L2 and on the right side of L2-L3. Moderate disc height loss with vacuum phenomena at L3-L4 and L4-L5. Mild disc height loss at L5-S1. Moderate to severe multilevel lo wer lumbar predominant facet osteoarthritis with solid osseous fusion across the bilateral L4-L5 and L5-S1 facet joints. There are several disc bulges throughout the lumbar spine. Multilevel central can al stenosis throughout the lumbar spine, moderate severity at L3-L4 and otherwise mild. Suggestion of an approximately 2.5 cm mass with coarse calcifications at the lower pole of the right kidney. Bilat eral adrenal masses measuring 4.5 cm on the right and 3.5 cm on the left. Cholecystectomy clips the g allbladder fossa. Small sliding-type hiatal hernia. Paravertebral soft tissues are otherwise unremark able. IMPRESSION: 1. Mild to moderate S-shaped scoliosis of the thoracic and lumbar spine with moderate thoracic and se sophia lumbar spondylosis. 2. Chronic T5 and T6 compression fractures at T12 and L1 burst fractures. No acute osseous abnormalit y. 3. Large masslike region of consolidation in the superior segment of the left lower lobe more concern ing for pneumonia than malignancy. 4. Small left pleural effusion. 5. 2.5 cm partially calcified mass at the lower pole of the left kidney concerning for renal cell car cinoma. 6. Bilateral adrenal masses which could represent either adenomas or metastatic disease. Consider cor relation with pre and postcontrast MRI. 7. Small sliding-type hiatal hernia. Reviewed, dictated and finalized at location A. IMPRESSION: 1. Mild to moderate S-shaped scoliosis of the thoracic and lumbar spine with mo derate thoracic and severe lumbar spondylosis. 2. Chronic T5 and T6 compression fractures a
--- NOTE | ~2022-04-16 | CT_ITS ---
EXAMINATION: CTA chest DATE: 04/20/2022 00:02 INDICATION: Worsening pneumonia TECHNIQUE: Computed tomographic angiography (CTA) of the chest was performed with 100 mL Omnipaque-30 0 intravenous contrast. Additional 3D reconstructions utilizing coronal maximum intensity projection (MIP) were performed. Automated exposure control and iterative reconstruction technique were employed . The dose-length product was 702.62 mGy-cm. COMPARISON: None. FINDINGS: Interval increase in size of a now 9.1 x 8.4 x 10.3 cm region of necrotizing pneumonia centered in th e superior segment of the left upper lobe but with small regions crossing the fissure to involve the adjacent posterior aspect of the left upper lobe. There is also some extrapleural extension to involv e the intercostal space between the medial aspect of the posterior left fifth and sixth ribs. Previou sly this measured approximately 7.5 x 7.1 x 9.3 cm maximal corresponding dimensions. There is some re sidual aerated lung centrally within the region necrotizing pneumonia. There is a separate small to m oderate-sized left pleural effusion. There is consolidation involving the majority of the basilar seg ments of the left lower lobe, the lingula and left upper lobe consistent with likely combination of a telectasis and pneumonia. Aside from the previous noted small regions of extensive necrotizing portio n of the pneumonia into the posterior left upper lobe there is discernible parenchyma enhancement thr oughout the remainder of the consolidated left lung. Very small right pleural effusion with mild comp ressive dependent atelectasis in the right lower lobe. Cardiomegaly. Atherosclerotic coronary artery calcifications. No pericardial effusion. Thoracic aorta is normal in caliber with no dissection. There is enlargement of the central pulmonary arteries cons istent with pulmonary arterial hypertension. No pulmonary embolism identified although assessment in the subsegmental pulmonary arteries in the left lung and segmental and subsegmental pulmonary arterie s in the right lung is limited primarily by respiratory motion. Partially visualized bilateral adrena l masses measuring at least 4 cm on both the left and right. Small sliding-type hiatal hernia. Thorac ic dextroscoliosis with moderate spondylosis. Chronic T5 and T6 compression fractures and chronic T12 and L1 burst fractures. IMPRESSION: 1. Interval increase in size of a now 9.1 x 8.4 x 10.3 cm region of necrotizing pneumonia centered in the superior segment of the left lower lobe now with extension into the posterior aspect of the left upper lobe as well as the chest wall at the intercostal space between the posterior left fifth and s ixth ribs. 2. New near complete collapse of the remainder of the left lung with small to moderate left pleural e ffusion. 3. Very small right pleural effusion with mild dependent compressive atelectasis in the right lower l obe. 4. Cardiomegaly with enlargement of the central pulmonary arteries consistent with pulmonary arterial hypertension. No evident pulmonary embolism although sensitivity is decreased particularly in the se gmental subsegmental pulmonary arteries of the right lung by respiratory motion. 5. Small sliding-type hiatal hernia. 6. Bilateral adrenal masses which raises concern for metastatic disease. Reviewed, dictated and finalized at location A. IMPRESSION: 1. Interval increase in size of a now 9.1 x 8.4 x 10.3 cm region of necrotizing pneumonia centered in the superior segment of the left lower lobe now with ext ension into the posterior aspect of the left upper lobe as well as the chest wa ll at the intercostal space between the posterior left fifth and sixth ribs. 2. New near complete collapse of the remainder of the left lung
--- NOTE | ~2022-04-16 | XR_ITS ---
EXAMINATION: XR pelvis 1-2V DATE: 04/16/2022 23:22 INDICATION: Pelvic pain post fall TECHNIQUE: An anteroposterior view of the pelvis was obtained. COMPARISON: CT dated 04/01/2022 FINDINGS: Bone alignment is normal. No fracture. Bilateral hip joint spaces are relatively preserved. Mild bila teral sacroiliac osteoarthritis. Mild to moderate lower lumbar spondylosis. Scattered vascular calcif ications in the pelvis and proximal thighs. IMPRESSION: 1. No acute osseous abnormality. Reviewed, dictated and finalized at location A.
--- NOTE | ~2022-04-16 | XR_ITS ---
EXAMINATION: XR chest 1V portable Exam Date/Time: 04/20/2022 17:47 CDT HISTORY: increasing oxygen demands Comparison: None available. RESULT: Lines, tubes, and devices: None. Lungs and pleura: Similar left lower lobe (superior segment) necrotic mass and left basilar airspace disease. Diffuse reticular pattern. Small volume left pleural fluid. Cardiomediastinal silhouette: Stable. Other: No acute osseous or upper abdominal finding. IMPRESSION: Unchanged necrotic left upper lobe mass, left basilar atelectasis/consolidation, and small left effus ion. Mild bilateral interstitial edema. Reviewed, dictated and finalized at location K. IMPRESSION: Unchanged necrotic left upper lobe mass, left basilar atelectasis/consolidation , and small left effusion. Mild bilateral interstitial edema.
--- NOTE | ~2022-04-16 | US_ITS ---
EXAMINATION: US thoracentesis DATE: 04/21/2022 11:19 INDICATION: Left pleural effusion TECHNIQUE: The procedure and its risks and benefits were discussed with the patient. Potential risks discussed included bleeding, infection, and pneumothorax. The patient understood the risks and agreed to proceed. The skin was prepped and draped in sterile fashion. 1% lidocaine was used for local anes thesia. Under ultrasound guidance, a 5 Fr catheter with trochar was advanced into the left pleural ef fusion. Fluid was aspirated. The catheter was removed, and a dressing was applied. There were no imme diate complications. FINDINGS: Ultrasound images demonstrate a small left pleural effusion and the catheter within the fluid. IMPRESSION: 1. Successful ultrasound-guided thoracentesis yielding 600 mL of clear yellow fluid. Reviewed, dictated and finalized at location A.
--- NOTE | ~2022-04-16 | XR_ITS ---
XR chest 1V portable DATE: 04/19/2022 05:48 INDICATION: Pneumonia TECHNIQUE: Portable upright AP chest on 04/19/2022 at 0536 hours COMPARISON: 04/16/2022 AP chest 04/02/2022 CT chest FINDINGS: There is extensive opacification of the left lung field with minimal residual aeration in t he left upper and lower lung zones, prominently increased since 04/16/2022, suggesting increased bronc hial occlusion and postobstructive infiltrate of left upper and lower lobes. There is mild infiltrate or atelectasis in the right lower lung. Cardiomegaly, pulmonary vascular congestion and redistribution. No pneumothorax. Aortic arch calcification. Osteopenia. IMPRESSION: Predominantly increased infiltrate throughout the left lung suggesting interval increased bronchial occlusion and postobstructive infiltrate Reviewed, dictated and finalized at location A. IMPRESSION: Predominantly increased infiltrate throughout the left lung suggest ing interval increased bronchial occlusion and postobstructive infiltrate
--- NOTE | ~2022-04-16 | CT_ITS ---
EXAMINATION: CT cervical spine wo con DATE: 04/16/2022 23:10 INDICATION: Fall with back pain and midline tenderness TECHNIQUE: Computed tomography (CT) of the cervical spine was performed without intravenous contrast. Automated exposure control and iterative reconstruction technique were employed. The dose-length pro duct was 495.62 mGy-cm. COMPARISON: None FINDINGS: Mild cervical levocurvature. 2 mm anterolisthesis C7 on T1. Vertebral body heights are normal. No fra cture. Severe disc height loss at C2-C3, moderate to severe disc height loss at C3-C4, C5-C6 and C6-C 7, moderate disc height loss at C4-C5 and mild disc height loss at T2-T3 and T3-T4. Posterior disc os teophyte complex at C5-C6 and disc bulges at C2-C3 through C4-C5 with results in mild central canal s tenosis at each of these levels. There is also multilevel severe right-sided and moderate to severe l eft-sided cervical facet osteoarthritis and multilevel severe bilateral cervical uncovertebral osteoa rthritis. THIS CONTRIBUTES TO MILD TO MODERATE NEURAL FORAMINAL STENOSIS MOST PROMINENT ON THE RIGHT AT C4-C5 THROUGH C6-C7 AND ON THE LEFT AT bilateral multilevel mild to moderate neural foraminal sten osis. Atherosclerotic calcifications at the bilateral carotid bulbs. 1.5 cm right thyroid nodule. Cer vical soft tissues are otherwise unremarkable. Partially visualized masslike region of consolidation in the left upper lobe with appearance favoring pneumonia over malignancy. IMPRESSION: 1. Mild cervical levocurvature with severe spondylosis. No acute osseous abnormality. 2. Partially visualized masslike consolidation in the left upper lobe and favor pneumonia over malign carlos. Reviewed, dictated and finalized at location A. IMPRESSION: 1. Mild cervical levocurvature with severe spondylosis. No acute osseous abnorm ality. 2. Partially visualized masslike consolidation in the left upper lobe and favor pneumonia over malignancy.
[2022-04-16 22:10] VITALS: BP 144/79; PULSE 105; RESP 22; TEMP 37.1; O2SAT 100
--- NOTE | 2022-04-16 22:22 | ECG_ITS ---
Measurements Intervals [place] Rate: 104 P: 39 NC: 180 QRS: 71 QRSD: 88 T: 30 QT: 337 QTc: 445 Interpretive Statements SINUS TACHYCARDIA BORDERLINE AV CONDUCTION DELAY BORDERLINE R WAVE PROGRESSION, ANTERIOR LEADS BASELINE ARTIFACT- V5 BORDERLINE ECG Electronically Signed On 04-17-2022 7:28:51 CDT by Ritesh Jurado D.O.
[2022-04-16 22:23] LABS: Glucose Point of Care 179 mg/dl (65-105)
[2022-04-16 22:56] LABS: Appearance Urine Clear (Clear); Bilirubin Urine 1+ (Negative); Blood Urine 1+ (Negative); Color Urine Yellow (Yellow); Glucose Urine UA Negative (Negative); Ketones Urine 1+ mg/dL (Negative); Leukocyte Esterase Ur Negative LEU/UL (Negative); Nitrate Urine Negative (Negative); Protein Urine 2+ mg/dL (Negative); Specific Grav Ur >= 1.030 (1.001-1.035); Urobilinogen Urine 0.2 mg/dL (<2.0)
[2022-04-16 23:01] LABS: Mucus Urine Rare /lpf; WBC Urine 0-3 /hpf
[2022-04-16 23:06] LABS: Basophils Absolute Auto 0.1 K/mm3 (0.0-0.1); Basophils Percent Auto 0.4 % (0.2-1.2); Eosinophils Absolute Auto 0.1 K/mm3 (0-0.3); Eosinophils Percent Auto 0.5 % (0-4.4); Hematocrit 33.8 % (37.0-47.0); Immature Granulocyte Absolute 0.14 K/mm3 (0.00-0.031); Immature Granulocyte Percent A 0.8 % (0-0.5); Lymphocytes Percent Auto 9.1 % (18.3-44.2); Mean Corpuscular HGB Conc 29.6 g/dl (32-36); Mean Corpuscular Hemoglobin 25.1 pg (26-34); Mean Corpuscular Volume 84.9 fl (80-100); Mean Platelet Volume 9.4 fl (7.4-10.4); Monocytes Absolute Auto 1.8 K/mm3 (0.1-0.6); Monocytes Percent Auto 9.9 % (2.6-8.5); Neutrophils Absolute Auto 14.7 K/mm3 (1.3-6.7); Neutrophils Percent Auto 79.3 % (45.5-73.1); Platelet Count Result 448 k/mm3 (150-375); Red Blood Count 3.98 M/mm3 (4.2-5.4); Red Cell Distribution Width 16.3 % (11.5-14.5); White Blood Count 18.6 K/mm3 (4.5-10.0)
[2022-04-16 23:10] LABS: Add Urine Microscopic? YES
[2022-04-16 23:16] LABS: Lactic Acid Reflex 1.9 mmol/L (0.7-2.0)
[2022-04-16 23:17] LABS: Alanine Aminotransferase 30 U/L (6-35); Albumin Level 3.5 g/dL (3.5-5.1); Alkaline Phosphatase 110 U/L (38-126); Anion Gap 10 mmol/L (8-16); Aspartate Amino Transferase 52 U/L (14-36); Bilirubin,Total 0.5 mg/dL (0.2-1.3); Blood Urea Nitrogen 23 mg/dL (7-17); Calcium 10.2 mg/dL (8.4-10.2); Carbon Dioxide 31 mmol/L (22-30); Chloride 98 mmol/L (98-107); Creatine Kinase 757 U/L (30-135); Estimated Glomerular Filt Rate 39; Glucose 161 mg/dL (65-110); Potassium 4.2 mmol/L (3.4-5.0); Sodium 139 mmol/L (137-145)
[2022-04-16 23:31] LABS: Troponin I 0.131 ng/mL (0.000-0.034)
[2022-04-17] VITALS (11 sets, daily range): BP systolic 136–155; BP diastolic 57–73; PULSE 93–104; RESP 18–20; TEMP 36.7–37; O2SAT 95–100; BMI 27.5
[2022-04-17] MEDS: levoFLOXacin 500 MG/D5W 100 ML 500 MG/100 ML BAG 100 MG IVPB (00:07)
--- NOTE | 2022-04-17 00:16 | PM.IMHP ---
H&P: HPI History of Present Illness Date/Time: 04/17/22 00:16 Chief Complaint: Fall Narrative: this is an 82-year-old female with past medical history significant for left [id number] amputation, hypertension, insulin-dependent diabetes mellitus, dyslipidemia, left long bronchogenic carcinoma, mass, metastatic lung cancer, postobstructive pneumonia, just recently discharged home comes back today after she was found down at her house. Preliminary workup was significant for worsening pneumonia and leukocytosis an elevated CPK, patient is unable to give much history. most of the history has been obtained upon reviewing medical records and discussion with emergency room doctor. Patient is been admitted for further evaluation management and treatment. Review of Systems Review of Systems: ROS unobtainable: Yes unobtainable due to mental status PMFSH Past Medical History Medical History Chronic kidney disease, stage 3 Baseline creatinine is 1.10. Essential hypertension Gastroesophageal reflux disease Hyperlipidemia Insulin dependent diabetes mellitus Osteomyelitis Paroxysmal atrial fibrillation Vitamin D deficiency Surgical History Surgical History History of amputation of toe History of appendectomy History of bilateral cataract extraction History of cholecystectomy History of left below knee amputation History of tonsillectomy Family History Family History Father Family history of Parkinson's disease Patient's father is , Onset Age: 73 Mother Patient's mother is , Onset Age: 69 Uterine cancer Social History Social History Social History: Surrogate medical decision maker: Gypsy Finley, daughter. Code status: Full code. Smoking status: Former smoker Alcohol intake: never Substance use: never Spiritual care concerns: No Meds Home Medications and Allergies Home Medications Medication Instructions Recorded Confirmed Type multivitamin 1 tablet PO DAILY 08/02/19 03/30/22 History omega-3 fatty acids 1,000 mg 1,000 mg PO DAILY 08/02/19 03/30/22 History capsule (Fish Oil Concentrate) vitamin E (dl, acetate) 180 mg 400 unit PO DAILY 08/02/19 03/30/22 History (400 unit) capsule blood-glucose meter (Squirrlyuch #1 ea 11/23/20 03/30/22 Rx Ultra2 Meter) cholecalciferol (vitamin D3) 125 5,000 unit PO .every other day 07/04/21 03/30/22 History mcg (5,000 unit) capsule insulin aspart U-100 100 unit/mL 3 - 5 unit (0.03 - 0.05 mL) subcut 10/10/21 03/30/22 Rx (3 mL) subcutaneous pen (Novolog TID PRN Type 2 Diabetes #15 mL Flexpen U-100 Insulin aspart) atorvastatin 20 mg tablet 20 mg PO DAILY #90 tabs 11/04/21 03/30/22 Rx omeprazole 20 mg capsule,delayed 20 mg PO DAILY #90 caps 11/04/21 03/30/22 Rx release biotin 1 mg capsule 1 mg PO DAILY 02/13/22 03/30/22 History blood sugar diagnostic (OneTouch #100 strips 03/10/22 03/30/22 Rx Ultra Test strips) levofloxacin 750 mg tablet 750 mg PO Q48H 6 days #3 tabs 04/05/22 Rx diltiazem HCl 240 mg See Rx Instructions .Route 04/16/22 Rx capsule,extended release 24 hr, .COMPLEX #90 caps controlled losartan 50 mg tablet See Rx Instructions .Route 04/16/22 Rx .COMPLEX #90 tabs metformin 500 mg tablet See Rx Instructions .Route 04/16/22 Rx .COMPLEX #180 tabs Allergies Allergy/AdvReac Type Severity Reaction Status Date / Time erythromycin base Allergy Unknown Hives Verified 04/16/22 22:21 Penicillins Allergy Unknown Hives Verified 04/16/22 22:21 Vital Signs Vital Signs - 24 hr 04/16/22 22:10 Temperature 98.8 F Pulse Rate 105 H Respiratory Rate 22 H Blood Pressure 144/79 H Pulse Oximetry 100 Oxygen Delivery Room Air Exam Const: General: comfortable, no acute distress
--- NOTE | 2022-04-17 00:19 | ED.FALL ---
HPI - Fall General Chief Complaint: Fall Stated Complaint: AMS, BACK PAIN S/P FALL LAST NOC Time Seen by Provider: 04/16/22 22:28 History of Present Illness HPI Narrative: Per daughter at bedside, she had been diagnosed with pneumonia recently and had over the past week been more more confused, she had seen her yesterday and seemed okay, and then when the daughter came by today the patient was not answering any calls, she found her on the ground and seemed confused about whether or not she had hit her head against the bed, and seemed confused about what a bed was. Patient is endorsing some back pain. Related Data Home Medications Medication Instructions Recorded Confirmed multivitamin 1 tablet PO DAILY 08/02/19 03/30/22 omega-3 fatty acids 1,000 mg 1,000 mg PO DAILY 08/02/19 03/30/22 capsule (Fish Oil Concentrate) vitamin E (dl, acetate) 180 mg 400 unit PO DAILY 08/02/19 03/30/22 (400 unit) capsule cholecalciferol (vitamin D3) 125 5,000 unit PO .every other day 07/04/21 03/30/22 mcg (5,000 unit) capsule biotin 1 mg capsule 1 mg PO DAILY 02/13/22 03/30/22 Allergies Allergy/AdvReac Type Severity Reaction Status Date / Time erythromycin base Allergy Unknown Hives Verified 04/16/22 22:21 Penicillins Allergy Unknown Hives Verified 04/16/22 22:21 Review of Systems Review of Systems: CONST: No fever. HEENT: No sore throat C/V: No chest pain RESP: Cough GI: No abdominal pain : No dysuria. BACK: Back pain M/S: No joint pain. SKIN: No rash. NEURO: [No headache or focal numbness or weakness] PSYCH: [No depression] [facility] Past Medical History Medical History Chronic kidney disease, stage 3 Baseline creatinine is 1.10. Essential hypertension Gastroesophageal reflux disease Hyperlipidemia Insulin dependent diabetes mellitus Osteomyelitis Paroxysmal atrial fibrillation Vitamin D deficiency Surgical History Surgical History History of amputation of toe History of appendectomy History of bilateral cataract extraction History of cholecystectomy History of left below knee amputation History of tonsillectomy Family History Family History Father Family history of Parkinson's disease Patient's father is , Onset Age: 73 Mother Patient's mother is , Onset Age: 69 Uterine cancer Social History Social History Social History: Surrogate medical decision maker: Gypsy Finley, daughter. Code status: Full code. Smoking status: Former smoker Alcohol intake: never Substance use: never Spiritual care concerns: No Exam Narrative: EXAMINATION OF ORGAN SYSTEMS/BODY AREAS: Constitutional: Vital signs per nursing GENERAL: Sleepy but will open eyes in response to questions HEAD: Normal with no signs of head trauma. EYES: EOMI, conjunctiva normal ENT: Hearing grossly intact LUNGS: Nonlabored breathing. HEART: [Regular rate and rhythm] ABD: [Soft], non[tender to palpation] EXT: Left leg amputation; otherwise moves all extremities to command/stimuli SKIN: [No rashes or lesions.] NEURO: [Sleepy and somewhat confused from baseline per daughter. No focal numbness/weakness] PSYCH: Normal affect Course Vital Signs Vital signs: Vital Signs Temperature 98.8 F 04/16/22 22:10 Pulse Rate 105 H 04/16/22 22:10 Respiratory Rate 22 H 04/16/22 22:10 Blood Pressure 144/79 H 04/16/22 22:10 Pulse Oximetry 100 04/16/22 22:10 Oxygen Delivery Room Air 04/16/22 22:10 Temperature 98.8 F 04/16/22 22:10 Pulse Rate 104 H 04/17/22 00:17 Respiratory Rate 18 04/17/22 00:17 Blood Pressure 136/73 04/17/22 00:17 Pulse Oximetry 100 04/17/22 00:17 Oxygen Delivery Room Air 04/16/22 22:10 MDM - Fall MDM Narrative Medical decision making narrat
[2022-04-17] MEDS: ASPIRIN 300 MG SUPPOSITORY RECTAL (00:23)
--- NOTE | 2022-04-17 00:27 | PC.NURSE ---
pt noted to be drowsy at this time. can wake up with shaking and sternal rub. pt immediately falls back asleep. EDP Alva made aware, aspirin PO order changed to rectal per EDP Alva.
[2022-04-17] MEDS: LACTATED RINGERS 1,000 ML 999 ML IV CONT (00:59)
[2022-04-17 01:07] LABS: SARS-CoV-2 RNA PCR Negative
--- NOTE | 2022-04-17 02:55 | PC.NURSE ---
This patient, Maribell Dobbs, was admitted to Medical Room 342-01. Patient/family oriented to hospital policies and general routines including ID bracelet, bed and alarms, visiting hours, pain management, procedures, bathroom and other care routines, personal items, smoking policy, room service/diet, and visiting hours. Information on how to activate the Rapid Response Team has been discussed. Patient/Family are encouraged to report perceived risks to care and to ask questions if they do not understand what they are told or what they should do. Pt unable to answer questions called daughter to do admission.
[2022-04-17 08:44] LABS: Troponin I 0.144 ng/mL (0.000-0.034)
--- NOTE | 2022-04-17 09:00 | PM.IMPN ---
Progress Note: A&P Assessment and Plan (1) Sepsis: Code(s): A41.9 - Sepsis, unspecified organism Status: Acute Assessment and Plan: patient meets SIRS criteria with tachycardia, tachypnea, leukocytosis lactic acid 1.9 source of infection pneumonia antibiotics on board blood cultures pending trend white blood cell count trend labs patient hydrated in the ED CK elevated at 757 with noted renal failure chest x-ray indicates pneumonia (2) Community acquired pneumonia: Code(s): J18.9 - Pneumonia, unspecified organism Status: Acute Assessment and Plan: Chest xray shows Persistent large masslike opacity in the left mid to upper lung zone most concerning for pneumonia with differential including primary bronchogenic carcinoma. CT of the spine shows pna over malignancy known to have a lung mass cultures pending Continue Levaquin from ED because of allergies White blood cell 18.6 continue to trend labs no notable cough 1 L nasal cannula continue to wean to baseline (3) Obstructive pneumonia: Code(s): J18.9 - Pneumonia, unspecified organism Status: Acute Assessment and Plan: See above (4) Rhabdomyolysis: Code(s): M62.82 - Rhabdomyolysis Status: Acute Assessment and Plan: CK elevated time of admission at 757 trending down currently 382 trend labs IV fluids normal saline at 75 an hour renal function corrected (5) Acute metabolic encephalopathy: Code(s): G93.41 - Metabolic encephalopathy Status: Acute Assessment and Plan: confused at time of assessment head CT shows no acute intracranial process probably related to infection or rhabdo Trend labs hold mind-altering medications (6) Leukocytosis: Code(s): D72.829 - Elevated white blood cell count, unspecified Status: Acute Assessment and Plan: WBCs currently 18.6 likely secondary to pneumonia, fluid overload, renal failure blood cultures pending antibiotics on board labs in a.m. trend labs (7) Chronic kidney disease, stage 3: Code(s): N18.30 - Chronic kidney disease, stage 3 unspecified Status: Acute Assessment and Plan: BUN and creatinine at admission 23/1.30 current BUN and creatinine 21/1 currently at baseline avoid nephrotoxic medications renally adjust medications trend labs labs in a.m. 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 insulin sliding scale trend glucose Accu-Cheks AC and HS adjust therapy as indicated (9) Elevated troponin: Code(s): R77.8 - Other specified abnormalities of plasma proteins Status: Acute Assessment and Plan: troponin elevated at 0.131, 0.144 probably related to elevated CK EKG no change no notable chest pain telemetry chest x-ray shows pneumonia does not appear to be ischemic (10) Essential hypertension: Code(s): I10 - Essential (primary) hypertension Status: Acute Assessment and Plan: current blood pressure 145/66 restart Cardizem, losartan trend blood pressure adjust therapy as indicated (11) Hyperlipidemia: Qualifiers: Hyperlipidemia type: mixed hyperlipidemia Qualified Code(s): E78.2 - Mixed hyperlipidemia Code(s): E78.5 - Hyperlipidemia, unspecified Status: Acute Assessment and Plan: continue home atorvastatin Subjective Date/time seen: 04/17/22 09:00 Interval history: 04/17/22 0900 Patient is alert today. She is responsive. However, she is really all over the place. She stated that jeromy
--- NOTE | 2022-04-17 09:00 | P.PNIM_ITS ---
Progress Note: A&P Assessment and Plan (1) Sepsis: Code(s): A41.9 - Sepsis, unspecified organism Status: Acute Assessment and Plan: * patient meets SIRS criteria with tachycardia, tachypnea, leukocytosis * lactic acid 1.9 * source of infection pneumonia * antibiotics on board * blood cultures pending * trend white blood cell count * trend labs * patient hydrated in the ED * CK elevated at 757 with noted renal failure * chest x-ray indicates pneumonia (2) Community acquired pneumonia: Code(s): J18.9 - Pneumonia, unspecified organism Status: Acute Assessment and Plan: * Chest xray shows Persistent large masslike opacity in the left mid to upper lung zone most concerning for pneumonia with differential including primary bronchogenic carcinoma. * CT of the spine shows pna over malignancy * known to have a lung mass * cultures pending * Continue Levaquin from ED because of allergies * White blood cell 18.6 * continue to trend labs * no notable cough * 1 L nasal cannula continue to wean to baseline (3) Obstructive pneumonia: Code(s): J18.9 - Pneumonia, unspecified organism Status: Acute Assessment and Plan: * See above (4) Rhabdomyolysis: Code(s): M62.82 - Rhabdomyolysis Status: Acute Assessment and Plan: * CK elevated time of admission at 757 * trending down currently 382 * trend labs * IV fluids normal saline at 75 an hour * renal function corrected (5) Acute metabolic encephalopathy: Code(s): G93.41 - Metabolic encephalopathy Status: Acute Assessment and Plan: * confused at time of assessment * head CT shows no acute intracranial process * probably related to infection or rhabdo * Trend labs * hold mind-altering medications (6) Leukocytosis: Code(s): D72.829 - Elevated white blood cell count, unspecified Status: Acute Assessment and Plan: * WBCs currently 18.6 * likely secondary to pneumonia, fluid overload, renal failure * blood cultures pending * antibiotics on board * labs in a.m. * trend labs (7) Chronic kidney disease, stage 3: Code(s): N18.30 - Chronic kidney disease, stage 3 unspecified Status: Acute Assessment and Plan: * BUN and creatinine at admission 23.30 * current BUN and creatinine 21/1 * currently at baseline * avoid nephrotoxic medications * renally adjust medications * trend labs * labs in a.m. (8) Type 2 diabetes mellitus with other circulatory complications: Code(s): E11.59 - Type 2 diabetes mellitus with other circulatory complications Status: Acute Assessment and Plan: * current glucose 111 * A1c in a.m. * insulin sliding scale * trend glucose * Accu-Cheks AC and HS * adjust therapy as indicated (9) Elevated troponin: Code(s): R77.8 - Other specified abnormalities of plasma proteins Status: Acute Assessment and Plan: * troponin elevated at 0.131, 0.144 * probably related to elevated CK * EKG no change * no notable chest pain * telemetry * chest x-ray shows pneumonia * does not appear to be ischemic (10) Essential hypertension: Code(s): I10 - Essential (pr
[2022-04-17] MEDS: SODIUM CHLORIDE 0.9% IV 1,000 ML 75 ML IV CONT (09:23)
[2022-04-17] MEDS: ATORVASTATIN 20 MG TABLET PO (09:28)
[2022-04-17] MEDS: LOSARTAN POTASSIUM 50 MG TABLET PO (09:28)
[2022-04-17 09:48] LABS: Alanine Aminotransferase 26 U/L (6-35); Albumin Level 3.1 g/dL (3.5-5.1); Alkaline Phosphatase 95 U/L (38-126); Anion Gap 10 mmol/L (8-16); Aspartate Amino Transferase 53 U/L (14-36); Bilirubin,Total 0.3 mg/dL (0.2-1.3); Blood Urea Nitrogen 21 mg/dL (7-17); Calcium 9.8 mg/dL (8.4-10.2); Carbon Dioxide 29 mmol/L (22-30); Chloride 99 mmol/L (98-107); Creatine Kinase 382 U/L (30-135); Estimated CRCL calculation 33 ml/min; Estimated Glomerular Filt Rate 53; Glucose 111 mg/dL (65-110); Magnesium 1.4 mg/dL (1.6-2.3); Potassium 4.1 mmol/L (3.4-5.0); Sodium 138 mmol/L (137-145)
[2022-04-17 09:51] LABS: Basophils Absolute Auto 0.1 K/mm3 (0.0-0.1); Basophils Percent Auto 0.5 % (0.2-1.2); Eosinophils Absolute Auto 0.2 K/mm3 (0-0.3); Eosinophils Percent Auto 1.3 % (0-4.4); Hematocrit 31.9 % (37.0-47.0); Hemoglobin 9.4 g/dL (12.0-15.0); Immature Granulocyte Percent A 0.6 % (0-0.5); Lymphocytes Absolute Auto 1.44 K/mm3 (0.9-3.2); Mean Corpuscular HGB Conc 29.5 g/dl (32-36); Mean Corpuscular Hemoglobin 25.3 pg (26-34); Mean Corpuscular Volume 85.8 fl (80-100); Mean Platelet Volume 9.7 fl (7.4-10.4); Monocytes Absolute Auto 1.9 K/mm3 (0.1-0.6); Monocytes Percent Auto 10.3 % (2.6-8.5); Neutrophils Absolute Auto 14.4 K/mm3 (1.3-6.7); Neutrophils Percent Auto 79.3 % (45.5-73.1); Platelet Count Result 412 k/mm3 (150-375); Red Blood Count 3.72 M/mm3 (4.2-5.4); Red Cell Distribution Width 16.4 % (11.5-14.5); White Blood Count 18.1 K/mm3 (4.5-10.0)
[2022-04-17 10:44] LABS: Giant Platelets Present
[2022-04-17 10:45] LABS: Hypochromasia 1+ (NORMAL); Poikilocytosis 1+ (NORMAL)
[2022-04-17 10:46] LABS: Howell Jolly Bodies 1+ (NORMAL)
[2022-04-17 11:18] LABS: Glucose Point of Care 244 mg/dl (65-105)
[2022-04-17] MEDS: INSULIN ASPART (*BKC) 100 UNITS/ML SUB-Q ×2 (12:35→16:56)
[2022-04-17 13:21] LABS: Troponin I 0.135 ng/mL (0.000-0.034)
[2022-04-17 16:20] LABS: Glucose Point of Care 326 mg/dl (65-105)
--- NOTE | 2022-04-17 17:10 | PCPTNOTE ---
Attempted PT evaluation, patient refused stating she needs her prosthetic limb to participate. Per patient, her daughter will be bringing her prosthetic limb to hospital. RN aware. Will follow.
[2022-04-18] VITALS (11 sets, daily range): BP systolic 151–156; BP diastolic 59–69; PULSE 90–105; RESP 16–18; TEMP 36.4–37.4; O2SAT 93–95
[2022-04-18] MEDS: SODIUM CHLORIDE 0.9% IV 1,000 ML 75 ML IV CONT ×2 (01:54→19:43)
[2022-04-18 07:34] LABS: Glucose Point of Care 149 mg/dl (65-105)
[2022-04-18 09:04] LABS: Hematocrit 31.9 % (37.0-47.0); Hemoglobin 9.3 g/dL (12.0-15.0); Mean Corpuscular HGB Conc 29.2 g/dl (32-36); Mean Corpuscular Hemoglobin 24.9 pg (26-34); Mean Corpuscular Volume 85.5 fl (80-100); Mean Platelet Volume 9.1 fl (7.4-10.4); Platelet Count Result 463 k/mm3 (150-375); Red Blood Count 3.73 M/mm3 (4.2-5.4); Red Cell Distribution Width 16.2 % (11.5-14.5); White Blood Count 20.2 K/mm3 (4.5-10.0)
[2022-04-18] MEDS: ENOXAPARIN 40 MG/0.4 ML SYRINGE SUB-Q (09:21)
[2022-04-18] MEDS: LOSARTAN POTASSIUM 50 MG TABLET PO (09:21)
[2022-04-18] MEDS: ATORVASTATIN 20 MG TABLET PO (09:21)
[2022-04-18 09:22] LABS: Alanine Aminotransferase 34 U/L (6-35); Albumin Level 3.3 g/dL (3.5-5.1); Alkaline Phosphatase 114 U/L (38-126); Anion Gap 8 mmol/L (8-16); Aspartate Amino Transferase 62 U/L (14-36); Bilirubin,Total 0.4 mg/dL (0.2-1.3); Blood Urea Nitrogen 15 mg/dL (7-17); Calcium 9.4 mg/dL (8.4-10.2); Carbon Dioxide 30 mmol/L (22-30); Chloride 96 mmol/L (98-107); Creatine Kinase 420 U/L (30-135); Estimated CRCL calculation 37 ml/min; Estimated Glomerular Filt Rate 60; Glucose 213 mg/dL (65-110); Potassium 4.1 mmol/L (3.4-5.0); Sodium 134 mmol/L (137-145)
[2022-04-18 09:40] LABS: Band Neutrophils Percent 1 % (0-6); Lymphocytes Absolute Manual 2.62 K/mm3 (1.1-4.5); Monocytes Absolute Manual 2.22 K/mm3 (0.1-0.90); Monocytes Percent Manual 11 % (3-9); Myelocytes Percent 1 %; Neutrophils Absolute Manual 15.15 K/mm3 (1.7-7.2); Neutrophils Percent Manual 74 % (46-73); Platelet Estimate Adequate (Adequate); Total Cells Counted 100
[2022-04-18 09:43] LABS: Poikilocytosis 1+ (NORMAL)
[2022-04-18 09:44] LABS: Burr Cells 1+ (NORMAL); Crenated RBC 1+ (NORMAL); Hypochromasia 1+ (NORMAL); Ovalocytes 1+ (NORMAL); Tear Drop Cells 1+ (NORMAL)
[2022-04-18 11:17] LABS: Glucose Point of Care 285 mg/dl (65-105)
--- NOTE | 2022-04-18 13:00 | PM.IMPN ---
Progress Note: A&P Assessment and Plan (1) Sepsis: Code(s): A41.9 - Sepsis, unspecified organism Status: Acute Assessment and Plan: patient meets SIRS criteria with tachycardia, tachypnea, leukocytosis lactic acid 1.9 source of infection pneumonia antibiotics on board blood cultures NGTD trend white blood cell count, trending up at 20.2 trend labs patient hydrated in the ED CK elevated at 420 chest x-ray indicates pneumonia repeat chest xray in the am (2) Community acquired pneumonia: Code(s): J18.9 - Pneumonia, unspecified organism Status: Acute Assessment and Plan: Chest xray shows Persistent large masslike opacity in the left mid to upper lung zone most concerning for pneumonia with differential including primary bronchogenic carcinoma. CT of the spine shows pna over malignancy known to have a lung mass cultures NGTD Continue Levaquin from ED because of allergies White blood cell, trending up currently 20.2 continue to trend labs no notable cough 1 L nasal cannula continue to wean to baseline (3) Obstructive pneumonia: Code(s): J18.9 - Pneumonia, unspecified organism Status: Acute Assessment and Plan: See above (4) Rhabdomyolysis: Code(s): M62.82 - Rhabdomyolysis Status: Acute Assessment and Plan: CK elevated time of admission at 757 trending up currently 420 trend labs IV fluids normal saline at 75 an hour renal function corrected (5) Acute metabolic encephalopathy: Code(s): G93.41 - Metabolic encephalopathy Status: Acute Assessment and Plan: confused at time of assessment head CT shows no acute intracranial process probably related to infection or rhabdo Trend labs hold mind-altering medications (6) Leukocytosis: Code(s): D72.829 - Elevated white blood cell count, unspecified Status: Acute Assessment and Plan: WBCs currently 20.2 likely secondary to pneumonia, fluid overload, renal failure blood cultures NGTD UA ordered with reflex antibiotics on board labs in a.m. trend labs (7) Chronic kidney disease, stage 3: Code(s): N18.30 - Chronic kidney disease, stage 3 unspecified Status: Acute Assessment and Plan: BUN and creatinine at admission 23/1.30 current BUN and creatinine 15/0.90 currently at baseline avoid nephrotoxic medications renally adjust medications trend labs labs in a.m. (8) Type 2 diabetes mellitus with other circulatory complications: Code(s): E11.59 - Type 2 diabetes mellitus with other circulatory complications Status: Acute Assessment and Plan: current glucose 213 A1c 6.39 insulin sliding scale trend glucose Accu-Cheks AC and HS adjust therapy as indicated (9) Elevated troponin: Code(s): R77.8 - Other specified abnormalities of plasma proteins Status: Acute Assessment and Plan: troponin elevated at 0.131, 0.144 probably related to elevated CK EKG no change no notable chest pain telemetry chest x-ray shows pneumonia does not appear to be ischemic (10) Essential hypertension: Code(s): I10 - Essential (primary) hypertension Status: Acute Assessment and Plan: current blood pressure 155/62 restart Cardizem, losartan trend blood pressure adjust therapy as indicated (11) Hyperlipidemia: Qualifiers: Hyperlipidemia type: mixed hyperlipidemia Qualified Code(s): E78.2 - Mixed hyperlipidemia Code(s): E78.5 - Hyperlipidemia, unspecified Status: Acute Assessment and Plan: continue home atorvastatin Time Spent With Patient Time with patient: Greater than 35 minutes Subjective Date/time seen: 04/18/22 1300 Interval
--- NOTE | 2022-04-18 13:00 | P.PNIM_ITS ---
Progress Note: A&P Assessment and Plan (1) Sepsis: Code(s): A41.9 - Sepsis, unspecified organism Status: Acute Assessment and Plan: * patient meets SIRS criteria with tachycardia, tachypnea, leukocytosis * lactic acid 1.9 * source of infection pneumonia * antibiotics on board * blood cultures NGTD * trend white blood cell count, trending up at 20.2 * trend labs * patient hydrated in the ED * CK elevated at 420 * chest x-ray indicates pneumonia * repeat chest xray in the am (2) Community acquired pneumonia: Code(s): J18.9 - Pneumonia, unspecified organism Status: Acute Assessment and Plan: * Chest xray shows Persistent large masslike opacity in the left mid to upper lung zone most concerning for pneumonia with differential including primary bronchogenic carcinoma. * CT of the spine shows pna over malignancy * known to have a lung mass * cultures NGTD * Continue Levaquin from ED because of allergies * White blood cell, trending up currently 20.2 * continue to trend labs * no notable cough * 1 L nasal cannula continue to wean to baseline (3) Obstructive pneumonia: Code(s): J18.9 - Pneumonia, unspecified organism Status: Acute Assessment and Plan: * See above (4) Rhabdomyolysis: Code(s): M62.82 - Rhabdomyolysis Status: Acute Assessment and Plan: * CK elevated time of admission at 757 * trending up currently 420 * trend labs * IV fluids normal saline at 75 an hour * renal function corrected (5) Acute metabolic encephalopathy: Code(s): G93.41 - Metabolic encephalopathy Status: Acute Assessment and Plan: * confused at time of assessment * head CT shows no acute intracranial process * probably related to infection or rhabdo * Trend labs * hold mind-altering medications (6) Leukocytosis: Code(s): D72.829 - Elevated white blood cell count, unspecified Status: Acute Assessment and Plan: * WBCs currently 20.2 * likely secondary to pneumonia, fluid overload, renal failure * blood cultures NGTD * UA ordered with reflex * antibiotics on board * labs in a.m. * trend labs (7) Chronic kidney disease, stage 3: Code(s): N18.30 - Chronic kidney disease, stage 3 unspecified Status: Acute Assessment and Plan: * BUN and creatinine at admission 23/1.30 * current BUN and creatinine 15/0.90 * currently at baseline * avoid nephrotoxic medications * renally adjust medications * trend labs * labs in a.m. (8) Type 2 diabetes mellitus with other circulatory complications: Code(s): E11.59 - Type 2 diabetes mellitus with other circulatory complications Status: Acute Assessment and Plan: * current glucose 213 * A1c 6.39 * insulin sliding scale * trend glucose * Accu-Cheks AC and HS * adjust therapy as indicated (9) Elevated troponin: Code(s): R77.8 - Other specified abnormalities of plasma proteins Status: Acute Assessment and Plan: * troponin elevated at 0.131, 0.144 * probably related to elevated CK * EKG no change * no notable chest pain * telemetry * chest x-ray shows pneumonia * does not appear to be ischemic
[2022-04-18] MEDS: INSULIN ASPART (*BKC) 100 UNITS/ML SUB-Q (13:08)
[2022-04-18 16:48] LABS: Glucose Point of Care 189 mg/dl (65-105)
[2022-04-18 21:08] LABS: Glucose Point of Care 253 mg/dl (65-105)
[2022-04-19] VITALS (14 sets, daily range): BP systolic 124–159; BP diastolic 47–77; PULSE 74–103; RESP 16–20; TEMP 36–37.2; O2SAT 90–96
[2022-04-19 06:27] LABS: Basophils Absolute Auto 0.1 K/mm3 (0.0-0.1); Basophils Percent Auto 0.3 % (0.2-1.2); Eosinophils Absolute Auto 0.3 K/mm3 (0-0.3); Eosinophils Percent Auto 1.5 % (0-4.4); Hematocrit 29.9 % (37.0-47.0); Hemoglobin 8.9 g/dL (12.0-15.0); Immature Granulocyte Absolute 0.23 K/mm3 (0.00-0.031); Immature Granulocyte Percent A 1.1 % (0-0.5); Lymphocytes Absolute Auto 0.93 K/mm3 (0.9-3.2); Lymphocytes Percent Auto 4.5 % (18.3-44.2); Mean Corpuscular HGB Conc 29.8 g/dl (32-36); Mean Corpuscular Hemoglobin 25.5 pg (26-34); Mean Corpuscular Volume 85.7 fl (80-100); Mean Platelet Volume 9.6 fl (7.4-10.4); Monocytes Absolute Auto 2.2 K/mm3 (0.1-0.6); Monocytes Percent Auto 10.7 % (2.6-8.5); Neutrophils Absolute Auto 16.8 K/mm3 (1.3-6.7); Neutrophils Percent Auto 81.9 % (45.5-73.1); Platelet Count Result 455 k/mm3 (150-375); Red Blood Count 3.49 M/mm3 (4.2-5.4); Red Cell Distribution Width 15.9 % (11.5-14.5); White Blood Count 20.6 K/mm3 (4.5-10.0)
[2022-04-19 06:41] LABS: Alanine Aminotransferase 26 U/L (6-35); Albumin Level 2.8 g/dL (3.5-5.1); Alkaline Phosphatase 111 U/L (38-126); Anion Gap 5 mmol/L (8-16); Aspartate Amino Transferase 44 U/L (14-36); Bilirubin,Total 0.3 mg/dL (0.2-1.3); Blood Urea Nitrogen 13 mg/dL (7-17); Calcium 8.9 mg/dL (8.4-10.2); Carbon Dioxide 32 mmol/L (22-30); Chloride 96 mmol/L (98-107); Creatine Kinase 249 U/L (30-135); Estimated CRCL calculation 41 ml/min; Estimated Glomerular Filt Rate > 60; Glucose 159 mg/dL (65-110); Magnesium 1.3 mg/dL (1.6-2.3); Potassium 3.7 mmol/L (3.4-5.0); Sodium 133 mmol/L (137-145)
[2022-04-19 08:05] LABS: Glucose Point of Care 163 mg/dl (65-105)
--- NOTE | 2022-04-19 08:30 | PCPTNOTE ---
Attempted PT evaluation, patient refused due to difficulty breathing - Patient on O2 and RN reports O2 saturation has been good. Patient also refusing due to not having prosthetic L LE limb here at the hospital. Will follow.
[2022-04-19] MEDS: SODIUM CHLORIDE 0.9% IV 1,000 ML 75 ML IV CONT (09:41)
[2022-04-19] MEDS: ENOXAPARIN 40 MG/0.4 ML SYRINGE SUB-Q (09:41)
[2022-04-19] MEDS: LOSARTAN POTASSIUM 50 MG TABLET PO (09:42)
[2022-04-19] MEDS: ATORVASTATIN 20 MG TABLET PO (09:42)
--- NOTE | 2022-04-19 11:30 | PM.IMPN ---
Progress Note: A&P Assessment and Plan (1) Acute and chronic respiratory failure: Code(s): J96.20 - Acute and chronic respiratory failure, unspecified whether with hypoxia or hypercapnia Status: Acute Assessment and Plan: ABG was obtained: pH 7.357, pCO2 56.9, PO2 65.4, HC03 21.2, % saturation 91.6 secondary to obstructive pneumonia pulmonology consult consider BiPAP await Pulmonary recommendations D.Dimer and CTA ordered (2) Sepsis: Code(s): A41.9 - Sepsis, unspecified organism Status: Acute Assessment and Plan: patient meets SIRS criteria with tachycardia, tachypnea, leukocytosis lactic acid 1.9 source of infection pneumonia antibiotics on board blood cultures NGTD sputum culture ordered UA did not indicate infection trend white blood cell count, trending up at 20.2 trend labs patient hydrated in the ED CK better today at 249 chest x-ray indicates pneumonia repeat chest xray 04/19/22 shows worsening obstructive pneumonia Pulm consult thank you for your help (3) Community acquired pneumonia: Code(s): J18.9 - Pneumonia, unspecified organism Status: Acute Assessment and Plan: Chest xray shows Persistent large masslike opacity in the left mid to upper lung zone most concerning for pneumonia with differential including primary bronchogenic carcinoma. CT of the spine shows pna over malignancy Chest CT ordered known to have a lung mass Pulm consult thank you for your help cultures NGTD Continue Levaquin from ED because of allergies White blood cell, trending up currently 20.2 continue to trend labs no notable cough 1 L nasal cannula continue to wean to baseline Pep therapy and CPT (4) Obstructive pneumonia: Code(s): J18.9 - Pneumonia, unspecified organism Status: Acute Assessment and Plan: See above (5) Rhabdomyolysis: Code(s): M62.82 - Rhabdomyolysis Status: Acute Assessment and Plan: CK elevated time of admission at 757 Currently at 249 trend labs IV fluids normal saline at 75 an hour renal function corrected (6) Acute metabolic encephalopathy: Code(s): G93.41 - Metabolic encephalopathy Status: Acute Assessment and Plan: confused at time of assessment head CT shows no acute intracranial process probably related to infection or rhabdo Trend labs hold mind-altering medications (7) Leukocytosis: Code(s): D72.829 - Elevated white blood cell count, unspecified Status: Acute Assessment and Plan: WBCs currently likely secondary to pneumonia, fluid overload, renal failure blood cultures NGTD\ Sputum culture ordered UA does not appear infection antibiotics broadened to vanc and cefepime labs in a.m. trend labs (8) Chronic kidney disease, stage 3: Code(s): N18.30 - Chronic kidney disease, stage 3 unspecified Status: Acute Assessment and Plan: BUN and creatinine at admission 23/1.30 current BUN and creatinine 13/0.80 currently at baseline avoid nephrotoxic medications renally adjust medications trend labs labs in a.m. (9) Type 2 diabetes mellitus with other circulatory complications: Code(s): E11.59 - Type 2 diabetes mellitus with other circulatory complications Status: Acute Assessment and Plan: current glucose 159 A1c 6.39 insulin sliding scale trend glucose Accu-Cheks AC and HS adjust therapy as indicated (10) Elevated troponin: Code(s): R77.8 - Other specified abnormalities of plasma proteins Status: Acute Assessment and Plan: troponin elevated at 0.131, 0.144 probably related to elevated CK EKG no change no notable chest pain telemetry chest x-ray shows pneumonia does not appear t
--- NOTE | 2022-04-19 11:30 | P.PNIM_ITS ---
Progress Note: A&P Assessment and Plan (1) Acute and chronic respiratory failure: Code(s): J96.20 - Acute and chronic respiratory failure, unspecified whether with hypoxia or hypercapnia Status: Acute Assessment and Plan: * ABG was obtained: pH 7.357, pCO2 56.9, PO2 65.4, HC03 21.2, % saturation 91.6 * secondary to obstructive pneumonia * pulmonology consult * consider BiPAP * await Pulmonary recommendations * D.Dimer and CTA ordered (2) Sepsis: Code(s): A41.9 - Sepsis, unspecified organism Status: Acute Assessment and Plan: * patient meets SIRS criteria with tachycardia, tachypnea, leukocytosis * lactic acid 1.9 * source of infection pneumonia * antibiotics on board * blood cultures NGTD * sputum culture ordered * UA did not indicate infection * trend white blood cell count, trending up at 20.2 * trend labs * patient hydrated in the ED * CK better today at 249 * chest x-ray indicates pneumonia * repeat chest xray 04/19/22 shows worsening obstructive pneumonia * Pulm consult thank you for your help (3) Community acquired pneumonia: Code(s): J18.9 - Pneumonia, unspecified organism Status: Acute Assessment and Plan: * Chest xray shows Persistent large masslike opacity in the left mid to upper lung zone most concerning for pneumonia with differential including primary bronchogenic carcinoma. * CT of the spine shows pna over malignancy * Chest CT ordered * known to have a lung mass * Pulm consult thank you for your help * cultures NGTD * Continue Levaquin from ED because of allergies * White blood cell, trending up currently 20.2 * continue to trend labs * no notable cough * 1 L nasal cannula continue to wean to baseline * Pep therapy and CPT (4) Obstructive pneumonia: Code(s): J18.9 - Pneumonia, unspecified organism Status: Acute Assessment and Plan: * See above (5) Rhabdomyolysis: Code(s): M62.82 - Rhabdomyolysis Status: Acute Assessment and Plan: * CK elevated time of admission at 757 * Currently at 249 * trend labs * IV fluids normal saline at 75 an hour * renal function corrected (6) Acute metabolic encephalopathy: Code(s): G93.41 - Metabolic encephalopathy Status: Acute Assessment and Plan: * confused at time of assessment * head CT shows no acute intracranial process * probably related to infection or rhabdo * Trend labs * hold mind-altering medications (7) Leukocytosis: Code(s): D72.829 - Elevated white blood cell count, unspecified Status: Acute Assessment and Plan: * WBCs currently * likely secondary to pneumonia, fluid overload, renal failure * blood cultures NGTD\ * Sputum culture ordered * UA does not appear infection * antibiotics broadened to vanc and cefepime * labs in a.m. * trend labs (8) Chronic kidney disease, stage 3: Code(s): N18.30 - Chronic kidney disease, stage 3 unspecified Status: Acute Assessment and Plan: * BUN and creatinine at admission 23/1.30 * current BUN and creatinine 13/0.80 * currently at baseline * avoid nephrotoxic medications * renally adjust medications * trend labs * labs in a.m. (9) Type 2 diabetes mellitus with other
[2022-04-19 11:55] LABS: Glucose Point of Care 299 mg/dl (65-105)
[2022-04-19] MEDS: MAGNESIUM SULF 4 GM/WATER100ML 4 GM/100 ML BAG IVPB (11:58)
[2022-04-19] MEDS: INSULIN ASPART (*BKC) 100 UNITS/ML SUB-Q (12:00)
--- NOTE | 2022-04-19 12:38 | PM.CNCAR ---
Assessment and Plan Assessment and plan (1) Elevated troponin: Code(s): R77.8 - Other specified abnormalities of plasma proteins Status: Acute Assessment and Plan: Elevated troponins again noted after a night on the floor trying to get up No ischemic changes on EKG Again this appears to be a type 2 SD related to physiologic stress, not an ACS episode. Continue current medications: Diltiazem, losartan, atorvastatin. Is unclear whether the addition of aspirin in a patient with a type 2 SD is beneficial. In view of the patient's advanced age and anemia I think it prudent to avoid at this time. No further recommendations, will sign off. Please call if we can be of further help. (2) Obstructive pneumonia: Code(s): J18.9 - Pneumonia, unspecified organism Status: Acute Assessment and Plan: Workup and treatment per hospitalist and Pulmonary. (3) Rhabdomyolysis: Code(s): M62.82 - Rhabdomyolysis Status: Acute Assessment and Plan: Hydrated, improved. (4) Chronic kidney disease, stage 3: Code(s): N18.30 - Chronic kidney disease, stage 3 unspecified Status: Acute Assessment and Plan: Mild acute exacerbation of chronic kidney disease, improved (5) Essential hypertension: Code(s): I10 - Essential (primary) hypertension Status: Acute Assessment and Plan: Elevated blood pressures noted. Back on her diltiazem and losartan, will follow. History of Present Illness History of Present Illness Consult date/time: 04/19/22 12:38 Reason For Visit: pna,ams,fall with possible T/L fx Narrative: Suha Dobbs is an 82-year-old female whom we were asked to see at the request of DAVIDSON Boucher for advice and opinion regarding, per our exchange, obstructive pneumonia, in consultation. I suspect the consult request is related to her elevated troponins. Ms. Dobbs was discharged from [facility] on 04/05/2022 after admission for pneumonia, elevated troponins, acute kidney failure. The troponins were thought to be secondary to a type 2 infarction. The recommendation was to continue statin consider an outpatient ischemia evaluation and possibly outpatient monitoring. She was found have a lung mass which is suspicious for cancer and a biopsy is planned. Echo that admission showed EF of 60-65% and diastolic dysfunction. She had 1 episode of atrial fibrillation noted by EKG done in 2016; no known recurrence and anticoagulation was not started because questionable indication and because of the upcoming biopsy. On this admission she was found down at home by her daughter, confused, with rhabdomyolysis and recurrent pneumonia. The patient, who is unreliable historian and also has a BKA, states that she risk calculated distance and fell to the floor without injury but could not get up all night. She denies chest pain or dizziness but states that she has been weaker and not eating well. She admits to some shortness of breath and cough. Her troponins are: 0.131, 0.144, 0.135, higher than last admission. Her CPK on admission was 757. EKG 04/16/2022 at 10:15 p.m. shows sinus tachycardia rate 104, poor R-wave progression, no acute ischemic changes. Personally reviewed Review of Systems Constitutional: Constitutional: Denies fever(s) Comments: Increased weakness recently Eyes: Eyes: Reports no additional eye complaints ENT: Denies epistaxis Cardiovascular: Cardiovascular: Denies chest pain, Denies pedal edema, Denies lightheadedness and Reports dyspnea Respiratory: Respiratory: Reports chest congestion, Reports cough, Reports dyspnea and Reports dyspnea on exertion Gastrointestinal: Gastrointestinal: Denies abdominal pain and Denies hematochezia Comments: Decreased appetite recently Musculoskeletal: Musculoskeletal: Reports no additional musculoskelet
[2022-04-19 12:42] LABS: Base Excess ABG 4.7 mEq/l (+/-2.0); Fractional Inspired Oxygen 24 %; HCO3 ABG 31.2 mEq/l (22.0-26.0); Oxygen Saturation ABG 91.6 % (95.0-100.0); Oxyhemoglobin 90.9 % THb (90.0-100.0); PCO2 ABG 56.9 mmHg (35.0-45.0); PO2 ABG 65.4 mmHg (80.0-100.0); PO2 FiO2 Ratio Arterial Blood 2.73 %; Total Hemoglobin 10.1 g/dL (12.0-18.0); pH ABG 7.357 (7.350-7.450)
[2022-04-19 12:43] LABS: Device NASAL CANNULA; Modified Allen's Test Pass; Site Drawn LEFT RADIAL
--- NOTE | 2022-04-19 12:57 | PM.CNPUL ---
Assessment and Plan Assessment and plan (1) Pneumonia: Code(s): J18.9 - Pneumonia, unspecified organism Status: Acute Assessment and Plan: Patient with a large left upper lobe lingular lung mass, left hilar LYDIA and bilateral adrenal masses and now with shortness of breath, cough, phlegm production. Patient had a leukocytosis of 14.6 and was treated with ceftriaxone, azithromycin and Levaquin on 04/17. Does not appear she was given antibiotics on 04/18. Today her Chest x-ray shows increased interstitial infiltrates in the left base that are new present since admission and her white blood cell count is 20.6 and she was started on vancomycin and cefepime. I believe the patient has a pneumonia and this may be healthcare associated or postobstructive. In addition she has areas on the prior CT scan that look like they are necrotic so she may also have a lung abscess. I agree with vancomycin and cefepime and will and clindamycin 600 mg IV Q 8 hours for additional anaerobic coverage. She has a penicillin allergy. Patient is a never smoker and has no history of COPD. Patient currently has some wheezes on exam on the left lung and I will add albuterol and ipratropium nebulizers. Patient has a poor cough and she has been started on Pulmozyme. I will not add Mucomyst nebulized at this time as she has some wheezing. (2) Lung mass: Code(s): R91.8 - Other nonspecific abnormal finding of lung field Status: Acute Assessment and Plan: Patient with a large left upper lobe lingular lung mass, left hilar LYDIA and bilateral adrenal masses. The plan per previous Oncology consultation on 04/04/2022 was that if the pleural fluid cytology was negative than she would be evaluated for and adrenal biopsy. Unfortunately the pleural fluid quantity was insufficient to perform cytology. patient is scheduled to receive a CT angiogram of the chest to further evaluate her left lung mass and to exclude PE. The patient does wish to know what her lung abnormality is and she would be open to cancer treatment. Patient does wish to be a full code. Will follow with you. 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 The patient recently admitted from 03/30 through 04/05/2022 with a postobstructive pneumonia, acute kidney injury, Elevated troponin, paroxysmal atrial fibrillation and left pleural effusion status post thoracentesis 04/03/22 with only 10 mL of an exudative (LDH 607 with ratio 0.87, protein 3.4 with ratio 0.49) monocytic (82% monocytes and 16% lymphocytes) effusion with insufficient volume for cytology.? She was treated with ceftriaxone and azithromycin. Blood cultures were negative, pleural pleural fluid culture was negative. COVID RT PCR test was negative. Urine Legionella and urine pneumococcal antigen were negative. Her white blood cell count was 14.6 on admission and repeat on 03/31 was 13.6. Discharged home on bactrim Pulmonary consulted : She was admitted with GRISEL and LLL pneumonia with an abnormal left upper lobe infiltrate on March 30. She had an increase in troponin consistent with her baseline medical problems, acute on chronic renal failure, BUN was 32 and creat 2.2, better now, normocytic anemia. ?? She is a never smoker, has no lung disease, was exposed to second hand smoke from her father and ex-.? She worked in home health care. While she has been here, she had thick clear mucus on one occasion. She is on room air with saturation 98%.? Yesterday April 03 she had 10 ml
[2022-04-19 13:57] LABS: D Dimer 2.34 ug/mL (<0.48)
[2022-04-19 15:21] LABS: Magnesium 2.7 mg/dL (1.6-2.3)
[2022-04-19] MEDS: CLINDAMYCIN 600 MG/D5W 50 ML 600 MG/50 ML PIGGYBACK 100 MG IVPB ×2 (15:37→22:14)
--- NOTE | 2022-04-19 16:03 | PCOTNOTE ---
Attempted to see pt. for occupational therapy. pt. getting transferred to IMU at this time due to increase medical needs. Will follow.
[2022-04-19] MEDS: IPRATROPIUM BR 0.02% INH SOLN 0.5 MG/2.5 ML VIAL INHALATION ×2 (16:31→20:20)
[2022-04-19] MEDS: ALBUTEROL SULFATE NEB 2.5 MG/3 ML INH INHALATION ×2 (16:32→20:20)
--- NOTE | 2022-04-19 18:02 | PC.NURSE ---
PT was transferred to [facility] - 203 @ 1730. Report was given to charge nurse. Pt was transferred to room with all belongings and SYLVIE Jameson assuming care was in the room at time of arrival.
[2022-04-19 18:08] LABS: Glucose Point of Care 166 mg/dl (65-105)
[2022-04-19] MEDS: DORNASE ALFA INH SOLN 1 MG/ML 2.5 ML AMP 2.5 MG INHALATION (20:20)
[2022-04-19 20:27] LABS: Glucose Point of Care 291 mg/dl (65-105)
[2022-04-19 21:12] LABS: Appearance Urine Cloudy (Clear); Bilirubin Urine Negative (Negative); Blood Urine Trace-lysed (Negative); Color Urine Yellow (Yellow); Glucose Urine UA Negative (Negative); Ketones Urine Negative (Negative); Leukocyte Esterase Ur Negative LEU/UL (Negative); Nitrate Urine Negative (Negative); Protein Urine 1+ mg/dL (Negative); Specific Grav Ur >= 1.030 (1.001-1.035); Urobilinogen Urine 0.2 mg/dL (<2.0); pH Urine 5.5 (5.0-9.0)
[2022-04-19 21:18] LABS: Add Urine Microscopic? YES; Bacteria Urine Trace /hpf; Mucus Urine Rare /lpf; Squamous Epithelial Cell Urine Few /hpf (Few)
[2022-04-20] VITALS (34 sets, daily range): BP systolic 126–164; BP diastolic 45–73; PULSE 71–120; RESP 17–32; TEMP 36.5–37.5; O2SAT 90–100
[2022-04-20] MEDS: ACETAMINOPHEN 325 MG TABLET 650 MG PO (00:18)
[2022-04-20] MEDS: IPRATROPIUM BR 0.02% INH SOLN 0.5 MG/2.5 ML VIAL INHALATION ×6 (00:20→20:54)
[2022-04-20] MEDS: ALBUTEROL SULFATE NEB 2.5 MG/3 ML INH INHALATION ×6 (00:20→20:54)
[2022-04-20] MEDS: SODIUM CHLORIDE 0.9% IV 1,000 ML 75 ML IV CONT ×2 (03:38→17:29)
[2022-04-20 04:47] LABS: Basophils Absolute Auto 0.1 K/mm3 (0.0-0.1); Basophils Percent Auto 0.2 % (0.2-1.2); Eosinophils Absolute Auto 0.4 K/mm3 (0-0.3); Eosinophils Percent Auto 1.6 % (0-4.4); Hematocrit 25.7 % (37.0-47.0); Hemoglobin 7.7 g/dL (12.0-15.0); Immature Granulocyte Percent A 0.9 % (0-0.5); Lymphocytes Absolute Auto 1.33 K/mm3 (0.9-3.2); Lymphocytes Percent Auto 5.9 % (18.3-44.2); Mean Corpuscular Volume 86.8 fl (80-100); Mean Platelet Volume 9.8 fl (7.4-10.4); Monocytes Absolute Auto 2.3 K/mm3 (0.1-0.6); Monocytes Percent Auto 10.5 % (2.6-8.5); Neutrophils Absolute Auto 18.1 K/mm3 (1.3-6.7); Neutrophils Percent Auto 80.9 % (45.5-73.1); Platelet Count Result 444 k/mm3 (150-375); Red Blood Count 2.96 M/mm3 (4.2-5.4); Red Cell Distribution Width 16.5 % (11.5-14.5); White Blood Count 22.4 K/mm3 (4.5-10.0)
[2022-04-20 05:06] LABS: Alanine Aminotransferase 25 U/L (6-35); Albumin Level 2.7 g/dL (3.5-5.1); Alkaline Phosphatase 109 U/L (38-126); Anion Gap 5 mmol/L (8-16); Aspartate Amino Transferase 37 U/L (14-36); Bilirubin,Total 0.3 mg/dL (0.2-1.3); Blood Urea Nitrogen 19 mg/dL (7-17); Calcium 8.3 mg/dL (8.4-10.2); Carbon Dioxide 29 mmol/L (22-30); Chloride 99 mmol/L (98-107); Creatine Kinase 62 U/L (30-135); Estimated CRCL calculation 37 ml/min; Estimated Glomerular Filt Rate 60; Glucose 168 mg/dL (65-110); Magnesium 2.2 mg/dL (1.6-2.3); Potassium 3.9 mmol/L (3.4-5.0); Sodium 133 mmol/L (137-145)
[2022-04-20] MEDS: CLINDAMYCIN 600 MG/D5W 50 ML 600 MG/50 ML PIGGYBACK 100 MG IVPB ×3 (05:47→22:36)
[2022-04-20] MEDS: DORNASE ALFA INH SOLN 1 MG/ML 2.5 ML AMP 2.5 MG INHALATION ×2 (08:09→20:54)
--- NOTE | 2022-04-20 08:15 | P.PNIM_ITS ---
Progress Note: A&P Assessment and Plan (1) Acute and chronic respiratory failure: Code(s): J96.20 - Acute and chronic respiratory failure, unspecified whether with hypoxia or hypercapnia Status: Acute Assessment and Plan: * ABG was obtained: pH 7.357, pCO2 56.9, PO2 65.4, HC03 21.2, % saturation 91.6 * secondary to obstructive pneumonia * pulmonology consult * Remains on 1LNC * Continue neb treatments * D.Dimer elevated * CTA no PE noted, increasing size of necrotizing pneumonia * Moderate pleural effusion, will order thoracentesis (2) Sepsis: Code(s): A41.9 - Sepsis, unspecified organism Status: Acute Assessment and Plan: * patient meets SIRS criteria with tachycardia, tachypnea, leukocytosis * lactic acid 1.9 * source of infection pneumonia * antibiotics on board * blood cultures NGTD * sputum culture ordered * UA did not indicate infection * trend white blood cell count, trending up at 22.4 * trend labs * patient hydrated in the ED * CK better today at 62 * chest x-ray indicates pneumonia * repeat chest xray 04/19/22 shows worsening obstructive pneumonia * Pulm consult thank you for your help (3) Community acquired pneumonia: Code(s): J18.9 - Pneumonia, unspecified organism Status: Acute Assessment and Plan: * Chest xray shows Persistent large masslike opacity in the left mid to upper lung zone most concerning for pneumonia with differential including primary bronchogenic carcinoma. * CT of the spine shows pna over malignancy * Chest CT increased necrotizing PNA * known to have a lung mass * Pulm consult thank you for your help * cultures NGTD * Continue Levaquin from ED because of allergies * White blood cell, trending up currently 20.2 * continue to trend labs * no notable cough * 1 L nasal cannula continue to wean to baseline * Pep therapy and CPT (4) Obstructive pneumonia: Code(s): J18.9 - Pneumonia, unspecified organism Status: Acute Assessment and Plan: * See above (5) Rhabdomyolysis: Code(s): M62.82 - Rhabdomyolysis Status: Acute Assessment and Plan: * CK elevated time of admission at 757 * Currently at 62 * trend labs * IV fluids normal saline at 75 an hour * renal function corrected (6) Acute metabolic encephalopathy: Code(s): G93.41 - Metabolic encephalopathy Status: Acute Assessment and Plan: * confused at time of assessment * head CT shows no acute intracranial process * probably related to infection or rhabdo * Trend labs * hold mind-altering medications (7) Leukocytosis: Code(s): D72.829 - Elevated white blood cell count, unspecified Status: Acute Assessment and Plan: * WBCs currently 62 * likely secondary to pneumonia, fluid overload, renal failure * blood cultures NGTD * Sputum culture ordered * UA does not appear infection * antibiotics broadened to vanc and cefepime * labs in a.m. * trend labs (8) Chronic kidney disease, stage 3: Code(s): N18.30 - Chronic kidney disease, stage 3 unspecified Status: Acute Assessment and Plan: * BUN and creatinine at admission 23/1.30 * current BUN and creatinine 19/0.90 * currently at baseline * avoid nep
--- NOTE | 2022-04-20 08:15 | PM.IMPN ---
Progress Note: A&P Assessment and Plan (1) Acute and chronic respiratory failure: Code(s): J96.20 - Acute and chronic respiratory failure, unspecified whether with hypoxia or hypercapnia Status: Acute Assessment and Plan: ABG was obtained: pH 7.357, pCO2 56.9, PO2 65.4, HC03 21.2, % saturation 91.6 secondary to obstructive pneumonia pulmonology consult Remains on 1LNC Continue neb treatments D.Dimer elevated CTA no PE noted, increasing size of necrotizing pneumonia Moderate pleural effusion, will order thoracentesis (2) Sepsis: Code(s): A41.9 - Sepsis, unspecified organism Status: Acute Assessment and Plan: patient meets SIRS criteria with tachycardia, tachypnea, leukocytosis lactic acid 1.9 source of infection pneumonia antibiotics on board blood cultures NGTD sputum culture ordered UA did not indicate infection trend white blood cell count, trending up at 22.4 trend labs patient hydrated in the ED CK better today at 62 chest x-ray indicates pneumonia repeat chest xray 04/19/22 shows worsening obstructive pneumonia Pulm consult thank you for your help (3) Community acquired pneumonia: Code(s): J18.9 - Pneumonia, unspecified organism Status: Acute Assessment and Plan: Chest xray shows Persistent large masslike opacity in the left mid to upper lung zone most concerning for pneumonia with differential including primary bronchogenic carcinoma. CT of the spine shows pna over malignancy Chest CT increased necrotizing PNA known to have a lung mass Pulm consult thank you for your help cultures NGTD Continue Levaquin from ED because of allergies White blood cell, trending up currently 20.2 continue to trend labs no notable cough 1 L nasal cannula continue to wean to baseline Pep therapy and CPT (4) Obstructive pneumonia: Code(s): J18.9 - Pneumonia, unspecified organism Status: Acute Assessment and Plan: See above (5) Rhabdomyolysis: Code(s): M62.82 - Rhabdomyolysis Status: Acute Assessment and Plan: CK elevated time of admission at 757 Currently at 62 trend labs IV fluids normal saline at 75 an hour renal function corrected (6) Acute metabolic encephalopathy: Code(s): G93.41 - Metabolic encephalopathy Status: Acute Assessment and Plan: confused at time of assessment head CT shows no acute intracranial process probably related to infection or rhabdo Trend labs hold mind-altering medications (7) Leukocytosis: Code(s): D72.829 - Elevated white blood cell count, unspecified Status: Acute Assessment and Plan: WBCs currently 62 likely secondary to pneumonia, fluid overload, renal failure blood cultures NGTD Sputum culture ordered UA does not appear infection antibiotics broadened to vanc and cefepime labs in a.m. trend labs (8) Chronic kidney disease, stage 3: Code(s): N18.30 - Chronic kidney disease, stage 3 unspecified Status: Acute Assessment and Plan: BUN and creatinine at admission 23/1.30 current BUN and creatinine 19/0.90 currently at baseline avoid nephrotoxic medications renally adjust medications trend labs labs in a.m. (9) Type 2 diabetes mellitus with other circulatory complications: Code(s): E11.59 - Type 2 diabetes mellitus with other circulatory complications Status: Acute Assessment and Plan: current glucose 168 A1c 6.39 insulin sliding scale trend glucose Accu-Cheks AC and HS adjust therapy as indicated (10) Elevated troponin: Code(s): R77.8 - Other specified abnormalities of plasma proteins Status: Acute Assessment and Plan: troponin elevated at 0.131, 0.144 prob
[2022-04-20 08:26] LABS: Glucose Point of Care 190 mg/dl (65-105)
[2022-04-20] MEDS: HYDROcodone/acetaminophen (*CRX) 5-325 MG TABLET 1 TAB PO ×3 (09:47→22:34)
[2022-04-20] MEDS: ENOXAPARIN 40 MG/0.4 ML SYRINGE SUB-Q (09:48)
[2022-04-20] MEDS: ATORVASTATIN 20 MG TABLET PO (09:49)
[2022-04-20] MEDS: LOSARTAN POTASSIUM 50 MG TABLET PO (09:49)
[2022-04-20 13:03] LABS: Glucose Point of Care 282 mg/dl (65-105)
--- NOTE | 2022-04-20 13:04 | PCPTNOTE ---
Attempted PT evaluation, patient refused stating she does not have her prosthetic limb even though the therapist educated patient on asking daughter to bring her limb to the hospital. Patient was given additional options of how she could transfer/participate in therapy, but continued to refuse. RN aware. Will follow.
--- NOTE | 2022-04-20 13:30 | PCOTNOTE ---
Attempted to see pt. for occupational therapy evaluation. Pt. declined at this time due to not having prosthetic limb, but present family member in room stated that daughter would bring leg today. Will follow.
[2022-04-20 13:35] LABS: Amylase 214 U/L (30-110); Cholesterol 83 mg/dL (0-200); Lactate Dehydrogenase 972 U/L (313-618); Triglycerides 133 mg/dL (<150)
[2022-04-20] MEDS: INSULIN ASPART (*BKC) 100 UNITS/ML SUB-Q ×2 (13:36→17:25)
[2022-04-20 13:37] LABS: INR 1.4; Prothrombin Time 16.6 Seconds (11.1-14.7)
[2022-04-20 16:39] LABS: Glucose Point of Care 224 mg/dl (65-105)
--- NOTE | 2022-04-20 17:52 | PM.PNPUL ---
Progress Note: A&P Assessment and Plan (1) Pneumonia: Code(s): J18.9 - Pneumonia, unspecified organism Status: Acute Assessment and Plan: Patient with a large left upper lobe lingular lung mass, left hilar LYDIA and bilateral adrenal masses and now with shortness of breath, cough, phlegm production. Patient had a leukocytosis of 14.6 and was treated with ceftriaxone, azithromycin and Levaquin on 04/17. Does not appear she was given antibiotics on 04/18. Today her Chest x-ray shows increased interstitial infiltrates in the left base that are new present since admission and her white blood cell count is 20.6 and she was started on vancomycin and cefepime. I believe the patient has a pneumonia and this may be healthcare associated or postobstructive. In addition she has areas on the prior CT scan that look like they are necrotic so she may also have a lung abscess. I agree with vancomycin and cefepime and will and clindamycin 600 mg IV Q 8 hours for additional anaerobic coverage. She has a penicillin allergy. Patient is a never smoker and has no history of COPD. Patient currently has some wheezes on exam on the left lung and I will add albuterol and ipratropium nebulizers. Patient has a poor cough and she has been started on Pulmozyme. I will not add Mucomyst nebulized at this time as she has some wheezing. 04/20 Overall patient clinically feels about the same. She states that her shortness of breath is slightly worse. She has a cough but denies phlegm production or hemoptysis. She is on 1 L nasal cannula saturations 91%. White blood cell count is 22.4. CT angiogram of the chest demonstrates no PE but worsening left upper lobe -lingular cavitary pneumonia and/or mass. No wheezes today on albuterol and ipratropium nebulizers. Patient continues with worsening leukocytosis and worsening left upper lobe -lingular cavitary pneumonia and/or lung mass despite ceftriaxone and azithromycin since 04/17 and vancomycin, cefepime and clindamycin started on 04/19. patient should be transferred to higher level of care for thoracic surgery evaluation regarding this worsening cavitary pneumonia unresponsive to antibiotics. Discussed this with Fer Boucher. (2) Lung mass: Code(s): R91.8 - Other nonspecific abnormal finding of lung field Status: Acute Assessment and Plan: Patient with a large left upper lobe lingular lung mass, left hilar LYDIA and bilateral adrenal masses. The plan per previous Oncology consultation on 04/04/2022 was that if the pleural fluid cytology was negative than she would be evaluated for and adrenal biopsy. Unfortunately the pleural fluid quantity was insufficient to perform cytology. patient is scheduled to receive a CT angiogram of the chest to further evaluate her left lung mass and to exclude PE. The patient does wish to know what her lung abnormality is and she would be open to cancer treatment. Patient does wish to be a full code. 04/20 Patient has a cavitary pneumonia and/or lung mass along with bilateral adrenal masses suspicious for cancer. Patient should be transferred to a higher level of care facility for further evaluation. Will re-evaluate on 04/21 regarding the benefit of a thoracentesis and/or adrenal biopsy. Will follow with you. Subjective Date/time seen: 04/20/22 17:52 Interval history: 04/19/2022:? This is a new Pulmonary consult for postobstructive pneumonia 82-year-old female with past medical history significant for left pmxkc-[id number] amputation, hypertension, insulin-dependent diabetes mellitus, dyslipidemia, GRISEL and LL 8.9 X 8.8 cm mass, left hilar [employer], 4.3 cm R adrenal mass and 3.4 cm left adrenal mass. The patient recently admitted from 03/30 through 04/05/2022 with a postobstructive pneumonia, acute kidney injury, ? Elevated troponin, paroxysmal atrial fibrillation and left pleural effusion status post thoracentesis 04/03/22 with only 10
[2022-04-20] MEDS: FUROSEMIDE INJ 40 MG/4 ML VIAL IV PUSH (17:58)
[2022-04-20 18:06] LABS: Alveolar/Arterial O2 Gradient 109.2 mmHg; Base Excess ABG 0.6 mEq/l (+/-2.0); Fractional Inspired Oxygen 40 %; Oxygen Content ABG 12.8 %vol (16.0-22.0); Oxygen Saturation ABG 98.7 % (95.0-100.0); Oxyhemoglobin 97.7 % THb (90.0-100.0); PCO2 ABG 39.5 mmHg (35.0-45.0); PO2 ABG 130.6 mmHg (80.0-100.0); PO2 FiO2 Ratio Arterial Blood 3.27 %; Total Hemoglobin 9.1 g/dL (12.0-18.0)
[2022-04-20 18:08] LABS: Device NASAL CANNULA; Modified Allen's Test Pass; Site Drawn RIGHT RADIAL
[2022-04-20 18:41] LABS: Hematocrit 27.7 % (37.0-47.0); Hemoglobin 8.2 g/dL (12.0-15.0)
[2022-04-20 19:03] LABS: NT Pro B Type Natriuretic Pept 1470 pg/mL (5-100)
[2022-04-20 20:56] LABS: Glucose Point of Care 200 mg/dl (65-105)
--- NOTE | 2022-04-20 22:42 | ECG_ITS ---
Measurements Intervals Welcome Rate: 128 P: [place]: 0 QRS: 114 QRSD: 95 T: -60 QT: 286 QTc: 418 Interpretive Statements ATRIAL FIBRILLATION WITH RAPID VENTRICULAR RESPONSE POSSIBLE ANTERIOR MYOCARDIAL INFARCTION, PROBABLY OLD T-WAVE ABNORMALITY, CONSIDER ISCHEMIA BASELINE ARTIFACT Electronically Signed On 04-22-2022 11:35:16 CDT by Byron Cheema M.D.
[2022-04-20] MEDS: dilTIAZem HCl INJ 25 MG/5 ML VIAL 10 MG IV PUSH (22:53)
[2022-04-20] MEDS: WATER FOR IRRIGATION, STERILE 1,000 ML BOTTLE 1000 ML (22:54)
--- NOTE | 2022-04-20 23:50 | PCRCNOTE ---
pt started on BIPAP per MD orders. Pt only tolerated BIPAP order setting fro five min, ripe off BIPAP mask and refused to wear it. RN informed, RT placed pt back on NC 3 liters 93% sp02, RR-16, pt resting. BIPAP will remain in room per RN pt is alert to refuse order. RN stated she will inform MD.
[2022-04-21] VITALS (18 sets, daily range): BP systolic 104–145; BP diastolic 50–102; PULSE 18–108; RESP 15–24; TEMP 36.1–36.5; O2SAT 92–100
[2022-04-21] MEDS: ALBUTEROL SULFATE NEB 2.5 MG/3 ML INH INHALATION ×4 (00:07→12:46)
[2022-04-21] MEDS: IPRATROPIUM BR 0.02% INH SOLN 0.5 MG/2.5 ML VIAL INHALATION ×4 (00:07→12:46)
[2022-04-21 04:51] LABS: Basophils Absolute Auto 0.1 K/mm3 (0.0-0.1); Basophils Percent Auto 0.3 % (0.2-1.2); Eosinophils Absolute Auto 0.5 K/mm3 (0-0.3); Eosinophils Percent Auto 2.3 % (0-4.4); Hematocrit 26.6 % (37.0-47.0); Hemoglobin 8.1 g/dL (12.0-15.0); Immature Granulocyte Percent A 1.4 % (0-0.5); Lymphocytes Absolute Auto 1.39 K/mm3 (0.9-3.2); Lymphocytes Percent Auto 6.3 % (18.3-44.2); Mean Corpuscular HGB Conc 30.5 g/dl (32-36); Mean Corpuscular Hemoglobin 25.5 pg (26-34); Mean Corpuscular Volume 83.6 fl (80-100); Mean Platelet Volume 10.1 fl (7.4-10.4); Monocytes Absolute Auto 2.5 K/mm3 (0.1-0.6); Monocytes Percent Auto 11.5 % (2.6-8.5); Neutrophils Absolute Auto 17.2 K/mm3 (1.3-6.7); Neutrophils Percent Auto 78.2 % (45.5-73.1); Platelet Count Result 440 k/mm3 (150-375); Red Blood Count 3.18 M/mm3 (4.2-5.4); Red Cell Distribution Width 16.3 % (11.5-14.5)
[2022-04-21] MEDS: CLINDAMYCIN 600 MG/D5W 50 ML 600 MG/50 ML PIGGYBACK 100 MG IVPB (05:09)
[2022-04-21 05:27] LABS: Alanine Aminotransferase 30 U/L (6-35); Albumin Level 2.8 g/dL (3.5-5.1); Alkaline Phosphatase 122 U/L (38-126); Anion Gap 7 mmol/L (8-16); Aspartate Amino Transferase 32 U/L (14-36); Bilirubin,Total 0.2 mg/dL (0.2-1.3); Blood Urea Nitrogen 25 mg/dL (7-17); Calcium 8.8 mg/dL (8.4-10.2); Carbon Dioxide 29 mmol/L (22-30); Chloride 95 mmol/L (98-107); Estimated CRCL calculation 28 ml/min; Estimated Glomerular Filt Rate 43; Glucose 199 mg/dL (65-110); Potassium 3.7 mmol/L (3.4-5.0); Sodium 131 mmol/L (137-145)
[2022-04-21 07:42] LABS: Glucose Point of Care 175 mg/dl (65-105)
--- NOTE | 2022-04-21 08:00 | P.PNIM_ITS ---
Progress Note: A&P Assessment and Plan (1) Acute and chronic respiratory failure: Code(s): J96.20 - Acute and chronic respiratory failure, unspecified whether with hypoxia or hypercapnia Status: Acute Assessment and Plan: * ABG was obtained: pH 7.420, pCO2 39.5, PO2 130.6, HC03 25, % saturation 98.7 * secondary to obstructive pneumonia * pulmonology consult thank you for your help * Supplemental oxygen currently at 3 L nasal cannula, wean to maintain saturation greater than 90% * Continue neb treatments * D.Dimer elevated * CTA no PE noted, increasing size of necrotizing pneumonia * Moderate pleural effusion, thoracentesis ordered (2) Sepsis: Code(s): A41.9 - Sepsis, unspecified organism Status: Acute Assessment and Plan: * patient meets SIRS criteria with tachycardia, tachypnea, leukocytosis * lactic acid 1.9 * source of infection pneumonia * antibiotics on board, vanc, cefepime, clindamycin * blood cultures NGTD * sputum culture ordered * UA did not indicate infection * trend white blood cell count, currently 22.0 * trend labs * patient hydrated in the ED * chest x-ray indicates pneumonia * repeat chest xray 04/19/22 shows worsening obstructive pneumonia * CTA shows further worsening of the left lung increasing size of necrotizing pneumonia * Pulm consult thank you for your help (3) Community acquired pneumonia: Code(s): J18.9 - Pneumonia, unspecified organism Status: Acute Assessment and Plan: * Chest xray shows Persistent large masslike opacity in the left mid to upper lung zone most concerning for pneumonia with differential including primary bronchogenic carcinoma. * CT of the spine shows pna over malignancy * Chest CT increased necrotizing PNA * known to have a lung mass * Pulm consult thank you for your help * cultures NGTD * Antibiotics switched to cefepime, vancomycin, clindamycin * White blood cell, trending up currently 22.0 * continue to trend labs * no notable cough * 3 L nasal cannula continue to wean to baseline * Pep therapy and CPT (4) Obstructive pneumonia: Code(s): J18.9 - Pneumonia, unspecified organism Status: Acute Assessment and Plan: * See above (5) Rhabdomyolysis: Code(s): M62.82 - Rhabdomyolysis Status: Acute Assessment and Plan: * Seems to be resolving * CK elevated time of admission at 757 * Currently at 62 * trend labs * IV fluids normal saline at 75 an hour * renal function corrected (6) Acute metabolic encephalopathy: Code(s): G93.41 - Metabolic encephalopathy Status: Acute Assessment and Plan: * confused at time of assessment * Appears to be confused again * Probably related to worsening infection * head CT shows no acute intracranial process * probably related to infection or rhabdo * Trend labs * hold mind-altering medications (7) Leukocytosis: Code(s): D72.829 - Elevated white blood cell count, unspecified Status: Acute Assessment and Plan: * WBCs currently 22.0 * likely secondary to pneumonia, fluid overload, renal failure * blood cultures NGTD * Sputum culture ordered * UA does not appear infection * antibiotics broadened to vanc and cefepime * labs in a.m. * trend labs
--- NOTE | 2022-04-21 08:00 | PM.IMPN ---
Progress Note: A&P Assessment and Plan (1) Acute and chronic respiratory failure: Code(s): J96.20 - Acute and chronic respiratory failure, unspecified whether with hypoxia or hypercapnia Status: Acute Assessment and Plan: ABG was obtained: pH 7.420, pCO2 39.5, PO2 130.6, HC03 25, % saturation 98.7 secondary to obstructive pneumonia pulmonology consult thank you for your help Supplemental oxygen currently at 3 L nasal cannula, wean to maintain saturation greater than 90% Continue neb treatments D.Dimer elevated CTA no PE noted, increasing size of necrotizing pneumonia Moderate pleural effusion, thoracentesis ordered (2) Sepsis: Code(s): A41.9 - Sepsis, unspecified organism Status: Acute Assessment and Plan: patient meets SIRS criteria with tachycardia, tachypnea, leukocytosis lactic acid 1.9 source of infection pneumonia antibiotics on board, vanc, cefepime, clindamycin blood cultures NGTD sputum culture ordered UA did not indicate infection trend white blood cell count, currently 22.0 trend labs patient hydrated in the ED chest x-ray indicates pneumonia repeat chest xray 04/19/22 shows worsening obstructive pneumonia CTA shows further worsening of the left lung increasing size of necrotizing pneumonia Pulm consult thank you for your help (3) Community acquired pneumonia: Code(s): J18.9 - Pneumonia, unspecified organism Status: Acute Assessment and Plan: Chest xray shows Persistent large masslike opacity in the left mid to upper lung zone most concerning for pneumonia with differential including primary bronchogenic carcinoma. CT of the spine shows pna over malignancy Chest CT increased necrotizing PNA known to have a lung mass Pulm consult thank you for your help cultures NGTD Antibiotics switched to cefepime, vancomycin, clindamycin White blood cell, trending up currently 22.0 continue to trend labs no notable cough 3 L nasal cannula continue to wean to baseline Pep therapy and CPT (4) Obstructive pneumonia: Code(s): J18.9 - Pneumonia, unspecified organism Status: Acute Assessment and Plan: See above (5) Rhabdomyolysis: Code(s): M62.82 - Rhabdomyolysis Status: Acute Assessment and Plan: Seems to be resolving CK elevated time of admission at 757 Currently at 62 trend labs IV fluids normal saline at 75 an hour renal function corrected (6) Acute metabolic encephalopathy: Code(s): G93.41 - Metabolic encephalopathy Status: Acute Assessment and Plan: confused at time of assessment Appears to be confused again Probably related to worsening infection head CT shows no acute intracranial process probably related to infection or rhabdo Trend labs hold mind-altering medications (7) Leukocytosis: Code(s): D72.829 - Elevated white blood cell count, unspecified Status: Acute Assessment and Plan: WBCs currently 22.0 likely secondary to pneumonia, fluid overload, renal failure blood cultures NGTD Sputum culture ordered UA does not appear infection antibiotics broadened to vanc and cefepime labs in a.m. trend labs (8) Chronic kidney disease, stage 3: Code(s): N18.30 - Chronic kidney disease, stage 3 unspecified Status: Acute Assessment and Plan: BUN and creatinine at admission 23/1.30 current BUN and creatinine 25/1.20 currently at baseline avoid nephrotoxic medications renally adjust medications trend labs labs in a.m. (9) Type 2 diabetes mellitus with other circulatory complications: Code(s): E11.59 - Type 2 diabetes mellitus with other circulatory complications Status: Acute Assessment and Plan: current glucose 199 A1c 6.39 in
[2022-04-21] MEDS: DORNASE ALFA INH SOLN 1 MG/ML 2.5 ML AMP 2.5 MG INHALATION (08:13)
--- NOTE | 2022-04-21 08:30 | PM.TDS ---
Transfer Discharge Sum: Prov Provider Date of admission: 04/17/22 00:16 Primary care physician: Alden Leal DO Admitting clinician: Cira Sebastian MD Consults: 04/17/22 Wound/ET Consult Routine Reason for Consult:: Tush issues 04/19/22 Consult to Physician Routine Comment: Yoshi teague [id number] 04/19 (, [place]) Consulting Provider: Suresh Rangel Reason for consultation: obstructive PNA Has provider been notified: Yes Consult to Physician Routine Comment: Spoke florina/ [id number] 04/19 (, [place]) Consulting Provider: Toney Kuhn Reason for consultation: adenal biopsy follow up Has provider been notified: Yes DS: Admitting Diagnosis Discharge Date 04/21/22 Admitting Diagnosis rhabdo/necrotizing pna DS: Discharge Diagnosis Discharge Diagnosis (1) Acute and chronic respiratory failure: Code(s): J96.20 - Acute and chronic respiratory failure, unspecified whether with hypoxia or hypercapnia Status: Acute Assessment and Plan: ABG was obtained: pH 7.420, pCO2 39.5, PO2 130.6, HC03 25, % saturation 98.7 secondary to obstructive pneumonia pulmonology consult thank you for your help Supplemental oxygen currently at 3 L nasal cannula, wean to maintain saturation greater than 90% Continue neb treatments D.Dimer elevated CTA no PE noted, increasing size of necrotizing pneumonia Moderate pleural effusion, thoracentesis ordered (2) Sepsis: Code(s): A41.9 - Sepsis, unspecified organism Status: Acute Assessment and Plan: patient meets SIRS criteria with tachycardia, tachypnea, leukocytosis lactic acid 1.9 source of infection pneumonia antibiotics on board, vanc, cefepime, clindamycin blood cultures NGTD sputum culture ordered UA did not indicate infection trend white blood cell count, currently 22.0 trend labs patient hydrated in the ED chest x-ray indicates pneumonia repeat chest xray 04/19/22 shows worsening obstructive pneumonia CTA shows further worsening of the left lung increasing size of necrotizing pneumonia Pulm consult thank you for your help (3) Community acquired pneumonia: Code(s): J18.9 - Pneumonia, unspecified organism Status: Acute Assessment and Plan: Chest xray shows Persistent large masslike opacity in the left mid to upper lung zone most concerning for pneumonia with differential including primary bronchogenic carcinoma. CT of the spine shows pna over malignancy Chest CT increased necrotizing PNA known to have a lung mass Pulm consult thank you for your help cultures NGTD Antibiotics switched to cefepime, vancomycin, clindamycin White blood cell, trending up currently 22.0 continue to trend labs no notable cough 3 L nasal cannula continue to wean to baseline Pep therapy and CPT (4) Obstructive pneumonia: Code(s): J18.9 - Pneumonia, unspecified organism Status: Acute Assessment and Plan: See above (5) Rhabdomyolysis: Code(s): M62.82 - Rhabdomyolysis Status: Acute Assessment and Plan: Seems to be resolving CK elevated time of admission at 757 Currently at 62 trend labs IV fluids normal saline at 75 an hour renal function corrected (6) Acute metabolic encephalopathy: Code(s): G93.41 - Metabolic encephalopathy Status: Acute Assessment and Plan: confused at time of assessment Appears to be confused again Probably related to worsening infection head CT shows no acute intracranial process probably related to infection or rhabdo Trend labs hold mind-altering medications (7) Leukocytosis: Code(s): D72.829 - Elevated white blood cell count, unspecified Status: Acute Assessment and Plan: WBCs currently 22.0 likely secondary to pneumonia, fluid overload, renal failure blood
--- NOTE | 2022-04-21 08:30 | P.TS_ITS ---
Transfer Discharge Sum: Prov Provider Date of admission: 04/17/22 00:16 Primary care physician: Alden Leal DO Admitting clinician: Cira Sebastian MD Consults: 04/17/22 Wound/ET Consult Routine Reason for Consult:: Tush issues 04/19/22 Consult to Physician Routine Comment: Yoshi teague [id number] 04/19 (, ) Consulting Provider: Suresh Rangel Reason for consultation: obstructive PNA Has provider been notified: Yes Consult to Physician Routine Comment: Spoke florina/ [id number] 04/19 (, [place]) Consulting Provider: Toney Kuhn Reason for consultation: adenal biopsy follow up Has provider been notified: Yes DS: Admitting Diagnosis Discharge Date 04/21/22 Admitting Diagnosis rhabdo/necrotizing pna DS: Discharge Diagnosis Discharge Diagnosis (1) Acute and chronic respiratory failure: Code(s): J96.20 - Acute and chronic respiratory failure, unspecified whether with hypoxia or hypercapnia Status: Acute Assessment and Plan: * ABG was obtained: pH 7.420, pCO2 39.5, PO2 130.6, HC03 25, % saturation 98.7 * secondary to obstructive pneumonia * pulmonology consult thank you for your help * Supplemental oxygen currently at 3 L nasal cannula, wean to maintain saturation greater than 90% * Continue neb treatments * D.Dimer elevated * CTA no PE noted, increasing size of necrotizing pneumonia * Moderate pleural effusion, thoracentesis ordered (2) Sepsis: Code(s): A41.9 - Sepsis, unspecified organism Status: Acute Assessment and Plan: * patient meets SIRS criteria with tachycardia, tachypnea, leukocytosis * lactic acid 1.9 * source of infection pneumonia * antibiotics on board, vanc, cefepime, clindamycin * blood cultures NGTD * sputum culture ordered * UA did not indicate infection * trend white blood cell count, currently 22.0 * trend labs * patient hydrated in the ED * chest x-ray indicates pneumonia * repeat chest xray 04/19/22 shows worsening obstructive pneumonia * CTA shows further worsening of the left lung increasing size of necrotizing pneumonia * Pulm consult thank you for your help (3) Community acquired pneumonia: Code(s): J18.9 - Pneumonia, unspecified organism Status: Acute Assessment and Plan: * Chest xray shows Persistent large masslike opacity in the left mid to upper lung zone most concerning for pneumonia with differential including primary bronchogenic carcinoma. * CT of the spine shows pna over malignancy * Chest CT increased necrotizing PNA * known to have a lung mass * Pulm consult thank you for your help * cultures NGTD * Antibiotics switched to cefepime, vancomycin, clindamycin * White blood cell, trending up currently 22.0 * continue to trend labs * no notable cough * 3 L nasal cannula continue to wean to baseline * Pep therapy and CPT (4) Obstructive pneumonia: Code(s): J18.9 - Pneumonia, unspecified organism Status: Acute Assessment and Plan: * See above (5) Rhabdomyolysis: Code(s): M62.82 - Rhabdomyolysis Status: Acute Assessment and Plan: * Seems to be resolving * CK elevated time of admission at 757 * Currently at 62 * trend labs * IV fluids normal saline at 75 an hour * renal function
[2022-04-21] MEDS: MORPHINE SULFATE (*CRX) 2 MG/ML INJ IV PUSH ×2 (08:48→14:21)
[2022-04-21] MEDS: ATORVASTATIN 20 MG TABLET PO (08:52)
[2022-04-21] MEDS: LOSARTAN POTASSIUM 50 MG TABLET PO (08:52)
[2022-04-21 09:41] LABS: Vancomycin Trough 8.8 ug/mL (10.0-20.0)
[2022-04-21] MEDS: LIDOCAINE HCL 1% PF INJ 5 ML VIAL INFILTRATE (11:30)
[2022-04-21 13:08] LABS: Glucose Point of Care 175 mg/dl (65-105)
[2022-04-21 13:09] LABS: Appearance Pleural Fluid Cloudy (Clear); Color Pleural Fluid Yellow (Colorless); Pleural fluid source Pleural fluid
[2022-04-21 13:10] LABS: Lymphocytes Pleural Fluid 42 %; Mesothelial Cells Pleural Flui 4 %; Monocytes Pleural Fluid 17 %; Neutrophils Pleural Fluid 37 % (0-25)
[2022-04-21 15:33] LABS: pH Pleural Fluid 7.373 (7.210-7.500)
--- NOTE | 2022-04-21 17:45 | PDONCCN ---
HPI - Date of Consult Date/Time: 04/21/22 17:45 Requesting Physician: Cira Sebastian MD Primary Care Provider: Alden Leal, DO - Consult Narrative Reason for consult: Leukocytosis, thrombocytosis and anemia Narrative: Maribell Dobbs is a 82 year old female who is a poor historian came into the hospital with worsening of shortness of breath. 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 Patient had ultrasound-guided left-sided thoracentesis done on April 17 with removal of 600 cc of clear [place]. [place] [id number] with hemoglobin of 8.1 and slightly elevated platelet of [id number]. She has been treated for community-acquired pneumonia. Patient is a poor historian and not able to provide much history regarding her previous symptoms. She denies any previous history of malignancy. Review of Systems - Review of Systems All systems reviewed & are unremarkable except as noted in HPI and bel - Neurologic Reports system reviewed and no additional complaints, except as documented, Reports hearing normal, Denies behavioral changes, Denies confusion PMFSH Medical History: Medical History (Last Updated 04/21/22 @ 08:11 by SARAH Francois) Anemia Below-knee amputation of left lower extremity Chronic kidney disease, stage 3 Baseline creatinine is 1.10. Essential hypertension Gastroesophageal reflux disease Hyperlipidemia Insulin dependent diabetes mellitus Osteomyelitis Paroxysmal atrial fibrillation Pneumonia Surgical History: Surgical History (Last Reviewed 04/19/22 @ 13:50 by Jesica Cooper MD) History of amputation of toe History of appendectomy History of bilateral cataract extraction History of cholecystectomy History of left below knee amputation History of tonsillectomy Family History: Family History (Last Reviewed 04/17/22 @ 00:46 by Maya Alva MD) Father Family history of Parkinson's disease Patient's father is , Onset Age: 73 Mother Patient's mother is , Onset Age: 69 Uterine cancer - Social History Social History: Social History (Last Reviewed 04/19/22 @ 13:50 by Jesica Cooper MD) Alcohol Use: Alcohol intake: never Substance Use: Substance use: never Others: Spiritual care concerns: No Smoking Status: Smoking status: Never smoker Meds Home Medications Medication Instructions Recorded Confirmed Type multivitamin 1 tablet PO DAILY 08/02/19 04/17/22 History omega-3 fatty acids 1,000 mg 1,000 mg PO DAILY 08/02/19 04/17/22 History capsule (Fish Oil Concentrate) vitamin E (dl, acetate) 180 mg 400 unit PO DAILY 08/02/19 04/17/22 History (400 unit) capsule cholecalciferol (vitamin D3) 125 5,000 unit PO .every other day 07/04/21 04/17/22 History mcg (5,000 unit) capsule insulin aspart U-100 100 unit/mL 3 - 5 unit (0.03 - 0.05 mL) subcut 10/10/21 04/17/22 Rx (3 mL) subcutaneous pen (Novolog TID PRN Type 2 Diabetes #15 mL Flexpen U-100 Insulin aspart) atorvastatin 20 mg tablet 20 mg PO DAILY #90 tabs 11/04/21 04/17/22 Rx omeprazole 20 mg capsule,delayed 20 mg PO DAILY #90 caps 11/04/21 04/17/22 Rx release diltiazem HCl 240 mg 240 mg PO DAILY 04/17/22 04/17/22 History capsule,extended release 24 hr, controlled losartan 50 mg tablet 50 mg PO DAILY 04/17/22 04/17/22 History metformin 500 mg tablet 500 mg PO BID 04/17/22 04/17/22 History Allergies Allergy/AdvReac Type Severity Reaction Status Date / Time erythromycin base Allergy Unknown Hives Verified 04/16/22 22:21 Penicillins Allergy Unknown Hives Verified 04/16/22 22:21 Results - Labs CBC & Chem 7: 04/21/22 04:10 04/21/22 04:10 Labs: Sh
[2022-04-23 19:06] LABS: Amylase, Pleural Fluid 34 U/L
[2022-04-24 21:50] LABS: Glucose Pleural Fluid 173 mg/dL; LDH Pleural Fluid 447 U/L; Total Protein Pleural Fluid <3.0 g/dL
== END 2022-04-21 14:39 | disposition short-term general hospital (02) | DRG 871 ==
LOC: ANHED 04-17 00:56 → ANH3MED 04-17 09:09 → ANHIMU 04-21 10:03 → ANH3MED 04-22 10:22
PROVIDERS: Chiropractor; Admitting Provider Internal Medicine; Emergency Provider Emergency Medicine; PCP Internal Medicine; Visit Provider Nurse Practitioner
DX: A41.9 Sepsis, unspecified organism (principal); J85.0 Gangrene and necrosis of lung; G93.41 Metabolic encephalopathy; J96.21 Acute and chronic respiratory failure with hypoxia; J18.9 Pneumonia, unspecified organism; M62.82 Rhabdomyolysis; J90 Pleural effusion, not elsewhere classified; I48.0 Paroxysmal atrial fibrillation; Z20.822 Contact with and (suspected) exposure to COVID-19; E11.22 Type 2 diabetes mellitus with diabetic chronic kidney disease; I12.9 Hypertensive chronic kidney disease with stage 1 through stage 4 chronic kidney disease, or unspecified chronic kidney disease; N18.30 Chronic kidney disease, stage 3 unspecified; E11.59 Type 2 diabetes mellitus with other circulatory complications; D72.829 Elevated white blood cell count, unspecified; E27.9 Disorder of adrenal gland, unspecified; K21.9 Gastro-esophageal reflux disease without esophagitis; E78.2 Mixed hyperlipidemia; D53.9 Nutritional anemia, unspecified; D64.89 Other specified anemias; R77.8 Other specified abnormalities of plasma proteins; E83.42 Hypomagnesemia; R91.8 Other nonspecific abnormal finding of lung field; E55.9 Vitamin D deficiency, unspecified; Z89.522 Acquired absence of left knee; Z90.49 Acquired absence of other specified parts of digestive tract; Z98.42 Cataract extraction status, left eye; Z98.41 Cataract extraction status, right eye; Z89.429 Acquired absence of other toe(s), unspecified side
CPT/HCPCS: 32555; 36415; 36569; 36600; 51701; 70450; 71045; 71275; 72125; 72128; 72131; 72170; 80053; 80202; 81001; 82040; 82042; 82150; 82465; 82550; 82805; 82945; 82948; 83605; 83615; 83735; 83880; 83986; 84157; 84311; 84478; 84484; 85014; 85018; 85025; 85380; 85610; 87015; 87040; 87070; 87075; 87081; 87086; 87088; 87102; 87116; 87205; 87206; 88108; 88305; 88342; 89051; 93005; 94002; 94640; 94667; 94668; 94669; 97165; 99285; A9270; C1751; C9803; J0692; J1650; J1815; J1940; J1956; J2270; J3370; J3475; J7030; J7120; L0140; Q9967; U0003; U0005